=== PATIENT | female | born 1940 | race Caucasian/White ===

== ENCOUNTER → 2020-01-08 | Outpatient (CLI) | payer MEDICARE, BC ==
--- NOTE | 2020-01-08 16:09 | US ---
EXAMINATION TYPE: US transvaginal DATE OF EXAM: 01/08/2020 COMPARISON: Previous report scanned into PACS CLINICAL HISTORY: N83.209 Ovarian cyst. Follow up right ovarian cyst TECHNIQUE: Transvaginal exam only per ordering physician. Date of LMP: 30 years ago EXAM MEASUREMENTS: Uterus: 4.2 x 2.3 x 2.8 cm Endometrial Stripe: 0.3 cm Right Ovary: cm Left Ovary: not seen 1. Uterus: anteverted, heterogeneous, multiple nabothian cysts 2. Endometrium: fluid within endo 3. Right Ovary: 5.7 x 2.8 x 3.5cm complex cyst with septation 4. Left Ovary: not seen 5. Bilateral Adnexa: wnl 6. Posterior cul-de-sac: wnl IMPRESSION: 1. Complex Right ovarian cyst. Follow-up exam in 6 weeks is recommended.
== END | disposition home or self-care (01) ==
LOC: RADUSWWP 15:21
PROVIDERS: ATTEND Family Medicine
DX: N83.201 Unspecified ovarian cyst, right side (principal)
CPT/HCPCS: 76830

== ENCOUNTER → 2020-01-28 | Outpatient (CLI) | payer MEDICARE, BC ==
--- NOTE | 2020-01-28 15:30 | CT ---
EXAMINATION TYPE: CT abdomen pelvis w con DATE OF EXAM: 01/28/2020 HISTORY: Generalized abdominal pain, stomach area CT DLP: 634.6mGycm Automated Exposure Control for Dose Reduction was Utilized. CONTRAST: CT scan of the abdomen and pelvis is performed with IV Contrast, patient injected with 100 mL of Isov ue 300. COMPARISON: None. FINDINGS: LUNG BASES: Cardiomegaly. Nodular left basilar atelectasis LIVER/GB: Liver slightly low dense. Pj hepatis benign calcification image 30 PANCREAS: No significant abnormality is seen. SPLEEN: No significant abnormality is seen. ADRENALS: No significant abnormality is seen. KIDNEYS: Symmetric cortical medullary uptake and excretion without hydronephrosis seen bilaterally. BOWEL: Small sized hiatal hernia. Oral contrast reaches level of the hepatic flexure. There is no araceli picious small or large bowel dilatation. Normal-appearing appendix seen from cecum in the right upper pelvis. Ylfj-vz-ftonsgji colonic fecal prominence in the right and transverse colon extending into t he left colon. A few Scattered colonic diverticula in the sigmoid colon. UTERUS/ADNEXA: Anteverted uterus. There is 5.7 x 3.8 cm low dense lesion right ovary axial image 61. Scattered bilateral pelvic phleboliths. LYMPH NODES: No greater than 1cm abdominal or pelvic lymph nodes are appreciated. OSSEOUS STRUCTURES: Severe compression type fracture T11. Underlying Scoliosis. Moderate to severe multilevel disc space narrowing and vacuum disc phenomenon greatest L1- L2 level. Facet arthropathy lower lumbar levels. Moderate axial joint space loss in both hips. OTHER: Tiny fat-containing umbilical hernia. IMPRESSION: 1. Bsyz-xd-aczustbo diffuse proximal to mid colonic fecal stasis. No bowel obstruction. Some distal c olonic diverticulosis without convincing CT evidence for acute diverticulitis. 2. There is 5.7 x 3.8 cm right pelvic cystic lesion corresponds to the recent ultrasound December, abnormal finding in a postmenopausal female. Short-term follow-up advised.
== END | disposition home or self-care (01) ==
LOC: RADCTMAIN 12:13
PROVIDERS: ATTEND Family Medicine
DX: K57.30 Diverticulosis of large intestine without perforation or abscess without bleeding (principal); K59.89 Other specified functional intestinal disorders; R10.84 Generalized abdominal pain
CPT/HCPCS: 82565; 84520; 74177; 36415; Q9967

== ENCOUNTER → 2020-04-06 | Outpatient (CLI) | payer MEDICARE, BC ==
--- NOTE | 2020-04-06 11:36 | MM ---
Reason for exam: additional evaluation requested from prior study. Last mammogram was performed 11 months ago. History: Patient is postmenopausal. Physical Findings: Nurse did not find any significant physical abnormalities on exam. MG 3D Diag Mammo W/Cad PHAM Bilateral CC and MLO view(s) were taken. Prior study comparison: May 07, 2019, mammogram, performed at [place]. The breast tissue is heterogeneously dense. This may lower the sensitivity of mammography. Stable benign calcifications. Post operative changes right breast. These results were verbally communicated with the patient and result sheet given to the patient on 04/06/20. ASSESSMENT: Benign, BI-RAD 2 RECOMMENDATION: Routine screening mammogram of both breasts in 1 year.
--- NOTE | 2020-04-06 14:29 | BD ---
EXAMINATION TYPE: Axial Bone Density DATE OF EXAM: 04/06/2020 COMPARISON: NONE CLINICAL HISTORY: 79 YR OLD FEMALE.....ICD-10 CODE: M89.9 DISORDER OF BONE Height: 56.5 Weight: 136 FRAX RISK QUESTIONS: NOTHING TO NOTE HERE RISK FACTORS HISTORY OF: Family History of Osteoporosis: UNSURE Diet low in dairy products/other sources of calcium: YES, LOW Postmenopausal woman: YES, AT AGE 47 YRS OLD Lost more than 2 inches in height since high school: YES Frequent falls: UNSTEADY Hyperparathyroidism: NO Adrenal Insufficiency: NO MEDICATIONS: Thyroid Medications: YES, SYNTHROID FOR ABOUT 25YRS Osteoporosis Medications: YES, FOSAMAX, FOR ABOUT 5 YRS NOW Additional Medications: CHOLESTEROL MEDS, BP MEDS, HX OF RADIATION, RT BREAST CANCER, VIT D AND CALCI UM, REFLUX MEDS Additional History: HYPERTENSION, CHOLESTEROL, RT BREAST CANCER, APR 26 2014, EXAM MEASUREMENTS: Bone mineral densitometry was performed using the [employer] System. Bone mineral density as measured about the Lumbar spine is: ----- L1-L4(G/cm2): 1.012 T Score Values are as follows: ----- L1: -2.7 ----- L2: -2.0 ----- L3: -2.0 ----- L4: 0.6 ----- L1-L4: -1.4 Bone mineral density FIRST BONE DENSITY AT [facility] Bone mineral density about the R hip (g/cm2): 0.761 Bone mineral density about the L hip (g/cm2): 0.753 T Score values are as follows: -----R Neck: -2.5 -----L Neck: -2.2 -----R Total: -2.0 -----L Total: -2.0 Bone mineral density FIRST BONE DENSITY AT [facility] FRAX%s: THERE IS A 18.6% CHANCE FOR A MAJOR OSTEOPOROTIC FX AND A 6.5% FOR HIP.....PROBABILITY FOR FX IN 10 YRS TIME IMPRESSION: Osteopenia NOTE: T-SCORE=SD OF THE YOUNG ADULT MEAN.
[2020-04-06 20:55] LABS: Carcinoembryonic Antigen 3.8 ng/mL (0.0-4.9)
[2020-04-06 21:19] LABS: Cancer Antigen 19-9 35.2 U/mL (0.0-34.9)
== END | disposition home or self-care (01) ==
LOC: RADMAMWWP 10:02
PROVIDERS: ATTEND Family Medicine
DX: Z08 Encounter for follow-up examination after completed treatment for malignant neoplasm (principal); M85.80 Other specified disorders of bone density and structure, unspecified site; Z85.3 Personal history of malignant neoplasm of breast; Z78.0 Asymptomatic menopausal state; R89.9 Unspecified abnormal finding in specimens from other organs, systems and tissues
CPT/HCPCS: 82378; 86301; 77080; 77066; G0279; 77062

== ENCOUNTER → 2020-06-01 | Outpatient (CLI) | payer MEDICARE, BC ==
--- NOTE | 2020-06-01 10:34 | US ---
EXAMINATION TYPE: US abdomen complete DATE OF EXAM: 06/01/2020 COMPARISON: NONE CLINICAL HISTORY: 79-year-old female R10.84 Generalized abdominal pain. TECHNIQUE: Multiple sonographic images of the abdomen are obtained. FINDINGS: EXAM MEASUREMENTS: Liver Length: 12.2 cm Gallbladder Wall: 0.3 cm CBD: 5.7 mm Spleen: 6.7 cm Right Kidney: 10.0 x 3.6 x 3.7 cm Left Kidney: 9.2 x 3.7 x 4.0 cm Pancreas: Tail obscured by overlying bowel gas. Visualized portions show no gross abnormality. Liver: Slightly echogenic in comparison to the adjacent right kidney. No focal lesion seen. Gallbladder: no evidence of stones Evidence for sonographic Palmer's sign: no CBD: Upper limits of normal, acceptable given patient's age. Spleen: wnl Right Kidney: no evidence of hydronephrosis Left Kidney: no evidence of hydronephrosis Upper IVC: wnl Abd Aorta: wnl IMPRESSION: No gallstones or abnormal biliary ductal dilatation. There may be mild fatty infiltration of the live r.
== END | disposition home or self-care (01) ==
LOC: RADUSWWP 07:18
PROVIDERS: ATTEND Family Medicine
DX: R10.84 Generalized abdominal pain (principal)
CPT/HCPCS: 76700

== ENCOUNTER → 2020-06-08 | Outpatient (CLI) | payer MEDICARE, BC ==
--- NOTE | 2020-06-08 10:13 | NM ---
EXAMINATION TYPE: NM hepatobiliary w EF DATE OF EXAM: 06/08/2020 COMPARISON: NONE INDICATION: Generalized abdominal pain TECHNIQUE: After the intravenous administration of 5.1 mCi Tc 99m Mebrofenin hepatobiliary scintigrap hy is performed. Images were obtained immediately post injection. FINDINGS: There is prompt uptake and excretion of radiotracer by the liver. Extrahepatic ducts are identified at 6 minutes. The gallbladder is visualized within 10 minutes. Small bowel activity is noted within 26 minutes. At one hour 8 ounces Ensure was administered orally and gallbladder ejection fraction is calculated a t 94 %, which is elevated range. (Normal >35% and <80%.). IMPRESSION: 1. Correlate for biliary hyperkinesia.
== END | disposition home or self-care (01) ==
LOC: RADNMMAIN 06:51
PROVIDERS: ATTEND Family Medicine
DX: R10.84 Generalized abdominal pain (principal)
CPT/HCPCS: 78226; A9537

== ENCOUNTER → 2020-11-01 | Outpatient (CLI) | payer MEDICARE, BC ==
[2020-11-01 15:47] LABS: Basophils # (A) 0.1 k/uL (0-0.2); Basophils % (A) 2 %; Eosinophils % (A) 0 %; HCT 42.9 % (34.0-46.0); HGB 14.9 gm/dL (11.4-16.0); Lymphocytes # (A) 1.4 k/uL (1.0-4.8); Lymphocytes % (A) 31 %; MCH 33.4 pg (25.0-35.0); MCHC 34.7 g/dL (31.0-37.0); MCV 96.2 fL (80.0-100.0); Mean Platelet Volume 7.1; Monocytes # (A) 0.4 k/uL (0-1.0); Monocytes % (A) 9 %; Neutrophils # (A) 2.5 k/uL (1.3-7.7); Neutrophils % (A) 55 %; Platelet Count 209 k/uL (150-450); RBC 4.46 m/uL (3.80-5.40); RDW 11.7 % (11.5-15.5); WBC 4.6 k/uL (3.8-10.6)
[2020-11-01 15:54] LABS: Appearance,Urine Clear (Clear); Bacteria,Urine Few /hpf; Bilirubin,Urine Negative (Negative); Blood,Urine Negative (Negative); Color,Urine Yellow; Glucose,Urine (UA) Negative (Negative); Ketones,Urine Negative (Negative); Leukocyte Esterase,Urine Small (Negative); Nitrite,Urine Negative (Negative); PH, Urine 6.5 (5.0-8.0); Protein,Urine Negative (Negative); RBC,Urine 1 /hpf (0-5); Specific Gravity,Urine 1.016 (1.001-1.035); Urobilinogen,Urine <2.0 mg/dL (<2.0); WBC,Urine 2 /hpf (0-5)
[2020-11-01 17:03] LABS: Erythrocyte Sedimentation Rate 8 mm/hr (0-20)
[2020-11-02 07:00] LABS: Cancer Antigen 19-9 40.5 U/mL (0.0-34.9)
[2020-11-02 07:03] LABS: Protein, Total 6.7 g/dL (6.2-8.2)
[2020-11-02 07:24] LABS: Cancer Antigen 125 7.7 U/mL (0.0-30.1)
[2020-11-02 07:32] LABS: C Reactive Protein <0.4 mg/dL (0.0-0.8); Lipase 40 U/L (14-63)
[2020-11-03 13:38] LABS: Gamma Globulin 0.75 g/dL (0.70-1.50)
[2020-11-04 08:17] LABS: Arsenic Whole Blood <3 mcg/L (< 23); Mercury Whole Blood <2 mcg/L (< 11)
== END | disposition home or self-care (01) ==
LOC: LABWHC1 15:16
PROVIDERS: ATTEND Family Medicine
DX: D72.819 Decreased white blood cell count, unspecified (principal)
CPT/HCPCS: 36415; 81001; 82175; 82570; 83655; 83690; 83825; 84165; 85025; 85652; 86140; 86301; 86304; 86334

== ENCOUNTER → 2021-02-14 | Outpatient (CLI) | payer MEDICARE, BC ==
[2021-02-14 14:05] LABS: Basophils # (A) 0.1 k/uL (0-0.2); Basophils % (A) 1 %; Eosinophils % (A) 0 %; HGB 15.2 gm/dL (11.4-16.0); Lymphocytes # (A) 1.3 k/uL (1.0-4.8); Lymphocytes % (A) 18 %; MCH 33.7 pg (25.0-35.0); MCHC 33.7 g/dL (31.0-37.0); MCV 99.9 fL (80.0-100.0); Mean Platelet Volume 7.4; Monocytes # (A) 0.5 k/uL (0-1.0); Monocytes % (A) 6 %; Neutrophils % (A) 72 %; Platelet Count 227 k/uL (150-450); RBC 4.51 m/uL (3.80-5.40); RDW 11.9 % (11.5-15.5)
[2021-02-14 14:23] LABS: Calcium 9.6 mg/dL (8.4-10.2)
[2021-02-14 14:27] LABS: Total Protein 7.6 g/dL (6.3-8.2)
[2021-02-14 14:28] LABS: Albumin 4.4 g/dL (3.5-5.0)
[2021-02-14 14:39] LABS: T4, Free (Free Thyroxine) 1.18 ng/dL (0.78-2.19)
[2021-02-14 15:53] LABS: Basophils # (A) 0.1 k/uL (0-0.2); Basophils % (A) 1 %; Eosinophils % (A) 0 %; HCT 45.6 % (34.0-46.0); HGB 15.2 gm/dL (11.4-16.0); Lymphocytes # (A) 1.4 k/uL (1.0-4.8); Lymphocytes % (A) 21 %; MCHC 33.3 g/dL (31.0-37.0); MCV 99.1 fL (80.0-100.0); Mean Platelet Volume 7.3; Monocytes # (A) 0.5 k/uL (0-1.0); Monocytes % (A) 8 %; Neutrophils # (A) 4.7 k/uL (1.3-7.7); Neutrophils % (A) 68 %; Platelet Count 231 k/uL (150-450); RDW 11.9 % (11.5-15.5)
[2021-02-14 16:08] LABS: ALT 14 U/L (4-34); AST 23 U/L (14-36); African American GFR (CKD) 75 (>60 ml/min/1.73 sqM); Albumin 4.3 g/dL (3.5-5.0); Alkaline Phosphatase 53 U/L (38-126); Anion Gap 8 mmol/L; Blood Urea Nitrogen 18 mg/dL (7-17); Calcium 9.4 mg/dL (8.4-10.2); Carbon Dioxide 27 mmol/L (22-30); Chloride 101 mmol/L (98-107); Glucose 84 mg/dL (74-99); Non-African American GFR(CKD) 65 (>60 ml/min/1.73 sqM); Potassium 3.8 mmol/L (3.5-5.1); Sodium 136 mmol/L (137-145); Total Bilirubin 0.5 mg/dL (0.2-1.3); Total Protein 7.1 g/dL (6.3-8.2)
--- NOTE | 2021-02-14 16:28 | CT ---
Right ovary or if this were EXAMINATION TYPE: CT abdomen pelvis w con DATE OF EXAM: 02/14/2021 COMPARISON: 01/28/2020 and 02/14/2021 ultrasound HISTORY: 80 year-old female K83.9, Disease of biliary tract. TECHNIQUE: Contiguous axial scanning of the abdomen and pelvis following administration of 100 ml Iso joan 300 IV contrast. Delayed images through the kidneys and coronal/sagittal reconstructions perform ed. CT DLP: 1160 mGycm Automated exposure control for dose reduction was used. FINDINGS: Heart borderline enlarged without pericardial effusion. Some mild patchy density inferior lingula, pr obably atelectasis. Additional dependent atelectasis is noted. Small to moderate-sized hiatal hernia. No focal liver lesion. Bile duct mildly dilated at 7.5 mm, acceptable given patient's age. Portal genny ous system is patent. Gallbladder, right adrenal gland, and spleen within normal limits. Mild diffuse dilatation of the main pancreatic duct up to 4 mm is unchanged. Bilateral extrarenal pelvis, right larger than left. Symmetric uptake and excretion of contrast from both kidneys. Separate origin of the splenic artery directly from the aorta is normal variation. No dilated small bowel, free fluid, or free air. No mesenteric or retroperitoneal lymphadenopathy. Scattered mild atherosclerotic calcifications abdominal aorta without aneurysm. Oral contrast progressed to the distal small bowel. There is moderate stool burden. Sigmoid diverticu losis. No pericolonic inflammatory change seen. Bladder urine distended. Uterus anteverted. Both ovaries are visualized. Within the right adnexa, the re is an ovoid cyst measuring 6.4 x 3.7 cm versus 6.5 x 3.8 cm, previously. Multiple pelvic phlebolit hs. No pelvic lymphadenopathy seen. Bones: Mild degenerative change at the hips. Osteitis pubis. Mild degenerative change SI joints. Adva nced hypertrophic facet arthropathy mid to lower lumbar spine with grade 1 anterolisthesis L3-L4 and L5-S1. Baastrup's disease and accentuated lumbar lordosis. Severe endplate fracture with severe compr ession collapse of T11. There is retropulsion into the spinal canal contributing to at least a modera te spinal canal stenosis. Finding was present back on 01/28/2020. IMPRESSION: 1. BILE DUCT MILDLY DILATED AT 7.5 MM, ACCEPTABLE GIVEN PATIENT'S AGE. THERE IS UNCHANGED MILD DIFFUS E DILATATION OF THE MAIN PANCREATIC DUCT UP TO 4 MM. 2. SMALL TO MODERATE-SIZED HIATAL HERNIA. 3. MODERATE STOOL BURDEN. SIGMOID DIVERTICULOSIS. NO CONVINCING EVIDENCE FOR ACUTE DIVERTICULITIS. 4. REDEMONSTRATED OVAL 6.4 X 3.7 CM CYST IN THE RIGHT ADNEXA, LIKELY OF OVARIAN ORIGIN. OVERALL SIZE UNCHANGED FROM THE CT OF 01/28/2020. CONSIDER FURTHER PELVIC MRI EVALUATION GIVEN SOME SUBTLE WALL IRR EGULARITY DESCRIBED ON THE 02/14/2021 ULTRASOUND. IF ONLY THIN INTERNAL SEPTATIONS ARE DEMONSTRATED O N THE PELVIC MRI, UNDERGOING ANNUAL ULTRASOUND SURVEILLANCE CAN BE PERFORMED.
[2021-02-15 09:58] LABS: Chol/HDL Ratio 3.24 Ratio; HDL Cholesterol 65.1 mg/dL (40.00-60.00); LDL Cholesterol,Calculated 121.9 mg/dL (0.0-131.0)
[2021-02-15 13:03] LABS: Cancer Antigen 125 15.6 U/mL (0.0-30.1)
== END | disposition home or self-care (01) ==
LOC: RADCTMAIN 12:53
PROVIDERS: ATTEND Family Medicine
DX: K83.8 Other specified diseases of biliary tract (principal); K57.30 Diverticulosis of large intestine without perforation or abscess without bleeding; K44.9 Diaphragmatic hernia without obstruction or gangrene; K86.89 Other specified diseases of pancreas; N83.8 Other noninflammatory disorders of ovary, fallopian tube and broad ligament
CPT/HCPCS: 84439; 80061; 80053; 86304; 82607; 84443; 85025; 86301; 83036; 74177; 36415; Q9967

== ENCOUNTER → 2021-02-14 | Outpatient (CLI) | payer MEDICARE, BC ==
--- NOTE | 2021-02-14 14:39 | US ---
EXAMINATION TYPE: US transvaginal DATE OF EXAM: 02/14/2021 COMPARISON: US pelvis January 08, 2020. CT abdomen and pelvis January 28, 2020 CLINICAL HISTORY: N83.291 ovarian cyst, right side. History of right ovarian cyst, 3, para 3 TECHNIQUE: Transvaginal only per ordering physician Date of LMP: 30+ years ago EXAM MEASUREMENTS: Uterus: 5.0 x 1.9 x 2.0 cm Endometrial Stripe: 0.4 cm Right Ovary: 6.2 x 3.2 x 3.3 cm 1. Uterus: anteverted, heterogeneous, multiple nabothian cysts 2. Endometrium: fluid within endo 3. Right Ovary: 5.4 x 2.5 x 3.0cm complex cyst with septations 4. Left Ovary: not seen due to overlying bowel gas 5. Bilateral Adnexa: wnl 6. Posterior cul-de-sac: wnl A small thin-walled nabothian cyst in the cervix on initial images. Poorly visualized small size uter us correlating with postmenopausal age. No free fluid. Persistent nonsimple cyst right ovary with thi n septa measuring 5.4 x 2.5 x 3.0 cm on current study not significantly changed in size from prior st y when accounting for technical differences. Inner margin somewhat irregular on current study versu s prior ultrasound. Left ovary not seen. No left-sided adnexal mass. IMPRESSION: Stable 5.4 cm right ovarian cystic lesion. ORADS 4 Lesion. Intermediate risk. Consider referral to a specialist has not been performed for possi ble MRI evaluation.
== END | disposition home or self-care (01) ==
LOC: RADUSWWP 13:44
PROVIDERS: ATTEND Obstetrics & Gynecology
DX: N83.201 Unspecified ovarian cyst, right side (principal)
CPT/HCPCS: 76830

== ENCOUNTER → 2021-04-11 | Outpatient (CLI) | payer MEDICARE, BC | END | disposition home or self-care (01) | LOC: LABWHC1 10:15 | PROVIDERS: ATTEND Obstetrics & Gynecology | DX: N83.209 Unspecified ovarian cyst, unspecified side (principal) | CPT/HCPCS: 36415; 86301; 86304 ==

== ENCOUNTER → 2021-05-03 | Outpatient (CLI) | payer MEDICARE, BC ==
--- NOTE | 2021-05-08 11:09 | MM ---
Reason for exam: screening (asymptomatic). Last mammogram was performed 1 year and 1 month ago. History: Patient is postmenopausal. Physical Findings: A clinical breast exam by your physician is recommended on an annual basis and results should be correlated with mammographic findings. MG 3D Screening Mammo W/Cad Bilateral CC and MLO view(s) were taken. Prior study comparison: April 06, 2020, bilateral MG 3d diag mammo w/cad PHAM. May 07, 2019, mammogram, performed at [place]. There are scattered fibroglandular densities. Previous mammotome biopsy in the right breast x 2. Benign oil cyst and vascular calcifications. No significant changes when compared with prior studies. ASSESSMENT: Benign, BI-RAD 2 RECOMMENDATION: Routine screening mammogram of both breasts in 1 year.
== END | disposition home or self-care (01) ==
LOC: RADMAMWWP 13:46
PROVIDERS: ATTEND Family Medicine
DX: Z12.31 Encounter for screening mammogram for malignant neoplasm of breast (principal); Z78.0 Asymptomatic menopausal state
CPT/HCPCS: 77063; 77067

== ENCOUNTER → 2021-05-06 | Outpatient (CLI) | payer MEDICARE, BC ==
--- NOTE | 2021-05-07 02:12 | MR ---
EXAMINATION TYPE: MR pelvis wo/w con DATE OF EXAM: 05/06/2021 COMPARISON: None HISTORY: Pelvic pain, evaluate ovarian cyst. CONTRAST: Standard multiplanar, multisequence MRI departmental protocol images were obtained without contrast a nd with 7 mL intravenous Gadavist gadolinium contrast. There is a 6 x 4 cm septated thin-walled cyst in the left adnexal region. This is probably arising fr om the right ovary. The uterus is anteverted with normal size and contour. There is no endometrial mass. Urinary bladder distends smoothly. There is no sign of free fluid in the pelvis. The contrast images show no patholog ic enhancement. The hip joints appear intact. The lower lumbar spine is intact. There is some degenerative disc space narrowing in the lower lumbar spine. IMPRESSION: Septated thin-walled cyst in the pelvis on the right side is measuring 5 mm larger than scan of 2019 and consistent with benign ovarian cyst. Normal uterus.
== END | disposition home or self-care (01) ==
LOC: RADMRIMAIN 09:15
PROVIDERS: ATTEND Obstetrics & Gynecology
DX: N83.201 Unspecified ovarian cyst, right side (principal)
CPT/HCPCS: 72197; A9585

== ENCOUNTER → 2021-09-29 | Outpatient (CLI) | payer MEDICARE, BC ==
--- NOTE | 2021-09-30 07:18 | MR ---
EXAMINATION TYPE: MR abdomen wo/w con DATE OF EXAM: 09/29/2021 COMPARISON: None HISTORY: Abnormal tumor markers, history of breast ca CONTRAST: Standard multiplanar, multisequence MRI departmental protocol images were obtained without contrast a nd with 6 mL intravenous Gadavist gadolinium contrast. The lung bases are clear of consolidation. There is evidence for minute bilateral pleural effusions. Heart appears slightly enlarged. No pericardial effusion. Gallbladder appears normal. The bile ducts are not dilated. There is no evidence of pancreatic mass. The duct appears normal. There is no evidence of splenic mass. No evidence of pancreatic mass. There is no adrenal mass. Kidneys have normal size and contour. No hydronephrosis. The contrast image s show no pathologic enhancement. There is no ascites. There is normal enhancement of the portal veno us system. No evidence of retroperitoneal adenopathy. No evidence of focal bone destruction. No evide nce of a bowel obstruction. IMPRESSION: Cardiomegaly. Small pleural effusions. No evidence of metastatic disease in the abdomen.
== END | disposition home or self-care (01) ==
LOC: RADMRIMAIN 12:08
PROVIDERS: ATTEND Family Medicine
DX: J90 Pleural effusion, not elsewhere classified (principal); I51.7 Cardiomegaly; Z85.3 Personal history of malignant neoplasm of breast
CPT/HCPCS: 74183; A9585

== ENCOUNTER 2021-10-17 10:55 | Observation (INO) | payer MEDICARE, BC ==
[2021-10-17] MEDS ORDERED: ASPIRIN 81 MG PO STA (12:17)
--- NOTE | 2021-10-17 12:20 | ED ---
General Adult HPI - General Chief complaint: Chest Pain Stated complaint: Chest pressure Time Seen by Provider: 10/17/21 11:52 Source: patient, family, RN notes reviewed Mode of arrival: ambulatory Limitations: no limitations - History of Present Illness Initial comments: Patient is a pleasant 80-year-old female presenting to the emergency department with concerns with chest discomfort. Onset was around 7 this morning. Symptoms lasted a little bit past 8:00. Patient did have pressure in her chest. There is some tightness in her arm and some radiation up to the neck. There was a one point some radiation towards the back as well. No dyspnea. Patient was a little bit nausea. No diaphoresis. No history of similar symptoms previously. Patient does see Dr. rashid on and does have history of right bundle-branch block. - Related Data Home Medications Medication Instructions Recorded Confirmed Furosemide [Lasix] 20 mg PO BID 10/17/21 10/17/21 Levothyroxine Sodium [Euthyrox] 112 mcg PO DAILY 10/17/21 10/17/21 Potassium Chloride [Potassium 10 meq PO DAILY 10/17/21 10/17/21 Chloride ER] amLODIPine [Norvasc] 10 mg PO DAILY 10/17/21 10/17/21 Allergies Allergy/AdvReac Type Severity Reaction Status Date / Time No Known Allergies Allergy Verified 10/17/21 12:11 Review of Systems ROS Statement: Those systems with pertinent positive or pertinent negative responses have been documented in the HPI. ROS Other: All systems not noted in ROS Statement are negative. Constitutional: Denies: fever Eyes: Denies: eye pain ENT: Denies: ear pain Respiratory: Denies: cough Cardiovascular: Reports: as per HPI, chest pain Endocrine: Denies: fatigue Gastrointestinal: Reports: nausea. Denies: abdominal pain, vomiting Genitourinary: Denies: dysuria Musculoskeletal: Reports: as per HPI Skin: Denies: rash Neurological: Denies: headache Past Medical History Past Medical History: Cancer, Chest Pain / Angina, Heart Failure, Hypertension, Thyroid Disorder Past Surgical History: Breast Surgery Past Psychological History: No Psychological Hx Reported Smoking Status: Never smoker Past Alcohol Use History: None Reported Past Drug Use History: None Reported General Exam Limitations: no limitations General appearance: alert, in no apparent distress Head exam: Present: normocephalic Eye exam: Present: normal appearance Respiratory exam: Present: normal lung sounds bilaterally Cardiovascular Exam: Present: regular rate, normal rhythm Expanded Peripheral pulses: 2+: Radial (R), Radial (L), Posterior Tibialis (R), Posterior Tibialis (L) GI/Abdominal exam: Present: soft. Absent: tenderness Extremities exam: Present: normal inspection. Absent: pedal edema, calf tenderness Neurological exam: Present: alert Psychiatric exam: Present: normal affect, normal mood Skin exam: Present: normal color Course Vital Signs 10/17/21 10/17/21 10/17/21 11:00 12:08 13:00 Temperature 97.7 F 98.8 F Pulse Rate 94 75 65 Respiratory 20 18 18 Rate Blood Pressure 146/66 158/66 131/54 O2 Sat by Pulse 97 97 Oximetry 10/17/21 14:00 Temperature Pulse Rate 67 Respiratory 18 Rate Blood Pressure 151/64 O2 Sat by Pulse Oximetry EKG Findings - EKG Comments: EKG Findings:: Sinus rhythm at 88. IA 150. QRS 133. QT 33. QTC 420. Normal axis. Right bundle branch block. No acute ST change. Medical Decision Making - Medical Decision Making Patient evaluated and resting comfortably in bed. Patient family updated on results and plan. Case discussed with Dr. Pang, who will admit covered Dr. James. - Lab Data Result diagrams: 10/17/21 12:21 10/17/21 12:21 Lab Results 10/17/21 10/17/21 10/17/21 Range/Units 12:21 12:21 12:21 WBC 5.2 (3.8-10.6) k/uL RBC 4.58 (3.80-5.40) m/uL Hgb 15.0 (11.4-16.0) gm/dL Hct 45.5 (34.0-46.0) % MCV 99.3 (80.0-100.0) fL MCH 32.7 (25.0-35.0) pg MCHC 32.9 (31.0-37.0) g/dL RDW 11.9 (11.5-15.5) % Plt Count 226 (150-450) k/uL MPV 7.4 Neutrophils % 71 % Lymphocytes % 19 % Monocytes % 8 % Eosinophils % 0 % Basophils % 1 % Neutrophils # 3.7 (1.3-7.7) k/uL Lymphocytes # 1.0 (1.0-4.8) k/uL Monocytes # 0.4 (0-1.0) k/uL Eosinophils # 0.0 (0-0.7) k/uL Basophils # 0.0 (0-0.2) k/uL PT 10.2 (9.0-12.0) sec INR 0.9 (<1.2) APTT 25.0 (22.0-30.0) sec D-Dimer 1.27 H (<0.60) mg/L FEU Sodium 141 (137-145) mmol/L Potassium 3.5 (3.5-5.1) mmol/L Chloride 102 (98-107) mmol/L Carbon Dioxide 30 (22-30) mmol/L Anion Gap 9 mmol/L BUN 11 (7-17) mg/dL Creatinine 0.80 (0.52-1.04) mg/dL Est GFR (CKD-EPI)AfAm 80 (>60 ml/min/1.73 sqM) Est GFR (CKD-EPI)NonAf 69 (>60 ml/min/1.73 sqM) Glucose 153 H (74-99) mg/dL Calcium 9.0 (8.4-10.2) mg/dL Magnesium 2.3 (1.6-2.3) mg/dL Total Bilirubin 0.8 (0.2-1.3) mg/dL AST 24 (14-36) U/L ALT 15 (4-34) U/L Alkaline Phosphatase 47 (38-126) U/L Troponin I (0.000-0.034) ng/mL Total Protein 7.2 (6.3-8.2) g/dL Albumin 4.5 (3.5-5.0) g/dL Amylase 102 (30-110) U/L Lipase 71 (23-300) U/L 10/17/21 Range/Units 12:21 WBC (3.8-10.6) k/uL RBC (3.80-5.40) m/uL Hgb (11.4-16.0) gm/dL Hct (34.0-46.0) % MCV (80.0-100.0) fL MCH (25.0-35.0) pg MCHC (31.0-37.0) g/dL RDW (11.5-15.5) % Plt Count (150-450) k/uL MPV Neutrophils % % Lymphocytes % % Monocytes % % Eosinophils % % Basophils % % Neutrophils # (1.3-7.7) k/uL Lymphocytes # (1.0-4.8) k/uL Monocytes # (0-1.0) k/uL Eosinophils # (0-0.7) k/uL Basophils # (0-0.2) k/uL PT (9.0-12.0) sec INR (<1.2) APTT (22.0-30.0) sec D-Dimer (<0.60) mg/L FEU Sodium (137-145) mmol/L Potassium (3.5-5.1) mmol/L Chloride (98-107) mmol/L Carbon Dioxide (22-30) mmol/L Anion Gap mmol/L BUN (7-17) mg/dL Creatinine (0.52-1.04) mg/dL Est GFR (CKD-EPI)AfAm (>60 ml/min/1.73 sqM) Est GFR (CKD-EPI)NonAf (>60 ml/min/1.73 sqM) Glucose (74-99) mg/dL Calcium (8.4-10.2) mg/dL Magnesium (1.6-2.3) mg/dL Total Bilirubin (0.2-1.3) mg/dL AST (14-36) U/L ALT (4-34) U/L Alkaline Phosphatase (38-126) U/L Troponin I <0.012 (0.000-0.034) ng/mL Total Protein (6.3-8.2) g/dL Albumin (3.5-5.0) g/dL Amylase (30-110) U/L Lipase (23-300) U/L - Radiology Data Radiology results: report reviewed (Computed tomography scan of the chest shows no definitive pulmonary embolism or aneurysm. Suspicious infiltrate right upper lobe.), image reviewed (Chest x-ray shows atelectasis. No acute process.) Disposition Clinical Impression: Chest pain, Pneumonia Disposition: ADMITTED IP TO THIS HOSP Is patient prescribed a controlled substance at d/c from ED?: No Referrals: Melina James MD [Primary Care Provider] - 1-2 days Time of Disposition: 15:26
[2021-10-17 12:37] LABS: Basophils % (A) 1 %; Eosinophils % (A) 0 %; HCT 45.5 % (34.0-46.0); Lymphocytes % (A) 19 %; MCH 32.7 pg (25.0-35.0); MCHC 32.9 g/dL (31.0-37.0); MCV 99.3 fL (80.0-100.0); Mean Platelet Volume 7.4; Monocytes # (A) 0.4 k/uL (0-1.0); Monocytes % (A) 8 %; Neutrophils # (A) 3.7 k/uL (1.3-7.7); Neutrophils % (A) 71 %; Platelet Count 226 k/uL (150-450); RBC 4.58 m/uL (3.80-5.40); RDW 11.9 % (11.5-15.5); WBC 5.2 k/uL (3.8-10.6)
--- NOTE | 2021-10-17 12:39 | XR ---
EXAMINATION TYPE: XR chest 2V DATE OF EXAM: 10/17/2021 COMPARISON: NONE HISTORY: Chest pain TECHNIQUE: Frontal and lateral views of the chest are obtained. FINDINGS: Bilateral apical pulmonary changes with right upper zone linear atelectasis/fibrosis. Suspected COPD changes. Grossly unremarkable remainder of the lungs. No pleural effusion or pneumothorax. Slightly increased cardiac transverse diameter. Osteopenia. IMPRESSION: As above.
[2021-10-17 12:52] LABS: INR 0.9 (<1.2); Prothrombin Time 10.2 sec (9.0-12.0)
[2021-10-17 13:02] LABS: Albumin 4.5 g/dL (3.5-5.0); Magnesium 2.3 mg/dL (1.6-2.3); Potassium 3.5 mmol/L (3.5-5.1); Total Bilirubin 0.8 mg/dL (0.2-1.3); Total Protein 7.2 g/dL (6.3-8.2)
--- NOTE | 2021-10-17 14:13 | CT ---
EXAMINATION TYPE: CT angio chest DATE OF EXAM: 10/17/2021 COMPARISON: No previous scan is available for comparison HISTORY: Chest pressure, back pain CT DLP: 209.8 mGy.cm. Automated Exposure Control for Dose Reduction was Utilized. TECHNIQUE AND CONTRAST: CTA scan of the thorax is performed with IV Contrast, patient injected with 66 mL of Isovue 300. MIP Images are created on an independent workstation and reviewed. FINDINGS: No definite filling defect within the pulmonary trunk, main pulmonary arteries, lobar, segmental or p roximal subsegmental branches to suggest pulmonary embolism. Distal subsegmental branches are subopti rodri assessed. The pulmonary trunk measures 2.9 cm and the ascending aorta measures up to 3.3 cm. Sc attered arterial and coronary atherosclerotic calcifications. No evidence of thoracic aortic dissecti on, stenosis, occlusion or aneurysm. Slight cardiomegaly, please correlate with echocardiographic res ults. Focal infiltration is seen at the posterolateral aspect of the right upper lobe, likely inflammatory/ infectious in etiology. Bilateral apical pulmonary fibrotic changes and tiny calcifications. Grossly unremarkable remainder of the lungs. Patent trachea and main bronchi. No pleural or pericardial effus ion. 14 mm subcarinal lymph node. Other scattered smaller bilateral hilar and mediastinal lymph nodes , nonspecific. Suspected enlarged right thyroid lobe, please correlate with thyroid ultrasound results. Slightly pro minent pancreatic duct, not completely included in the scan. Osteopenia. Degenerative changes of thor acic spine. Complete collapse of T12 vertebral body with retropulsion of the posterior margin into th e spinal canal causing spinal canal stenosis, stable since January 2021 CT abdomen. IMPRESSION: No major or central pulmonary embolism. No evidence of thoracic aortic dissection, stenosis, occlusio n or aneurysm. Other findings as described above.
[2021-10-17] MEDS ORDERED: NITROGLYCERIN SL TABS 0.4 MG TAB SUBLINGUAL PRN (15:26)
[2021-10-17] MEDS ORDERED: AZITHROMYCIN 500 MG in SODIUM CHLORIDE 0.9% 250 ML IVPB STA (15:27)
[2021-10-17] MEDS ORDERED: PNEUMONIA PROTOCOL UTILIZED 1 EACH MISC PO PRN (15:27)
--- NOTE | 2021-10-18 | P.HPIM ---
History of Present Illness H&P Date: 10/17/21 HISTORY OF PRESENT ILLNESS 80-year-old female one of Dr. James's patient who apparently had moved from [place] a few months ago used to see loin puller in [place] regular basis for right bundle branch block along with heart murmur had stress test and echo last time in 2019. Patient [address] Salazar in [facility] [address] for the continued if care on cardiology has been doing well no testing done in [facility] [address] this time patient been watch clinically has been stable on current medication. Patient woke up at 7:00 in the morning with midsternal chest pain lasted an hour get up and move around her symptoms become slightly bit worse developed to have shoulder blade pain radiates from the front to the back associated with mild shortness of breath nausea without vomiting developed to have mild palpitation and worsening symptom with nausea become slightly bit lightheaded as well. With the symptom has been slightly bit worse ended up coming to the emergency department at [facility] where was seen and evaluated her CK and troponin was negative blood sugar was mildly elevated d-dimer came back elevated patient ended up going for CTA which was negative for pulmonary embolism but result were consistent with pneumonia in the right upper lobe even though patient is not symptomatic had mild bilateral apical pulmonary fibrosis and tiny calcification no pleural or pericardial effusion was found 14 mm subcarinal lymph node other scattered smaller bilateral hilar and mediastinal lymph node nonspecific also had suspected enlarged right thyroid lobe recommending ultrasound of the thyroid at some point. Thoracic spine and bone mildly consistent with osteopenia. Patient will be hospitalized for her anginal chest pain will be seen cardiology, echocardiogram will be done with the patient benefit from going for nuclear stress test or not to be determined by cardiology. REVIEW OF SYSTEMS Constitutional: No fever, no chills, no night sweats. No weight change. No weakness, fatigue or lethargy. No daytime sleepiness. EENT: No headache. No blurred vision or double vision, no loss of vision. No loss of Hearing, no ringing in the ears, no dizziness. No nasal drainage or congestion. No epistaxis. No sore throat. Lungs: chest pain with mild shortness of breath cough no wheezes or tightness. Cardiovascular: positive chest pain, no lower extremity edema. positive palpitations. mild paroxysmal nocturnal dyspnea. and orthopnea. very mild lightheadedness or dizziness. No syncopal episodes. Abdominal: No abdominal pain. No nausea, vomiting. No diarrhea. No constipation. No bloody or tarry stools.. No loss of appetite. Genitourinary: No dysuria, increased frequency, urgency. No urinary retention. Musculoskeletal: No myalgias. No muscle weakness, no gait dysfunction, no frequent falls. No back pain. No neck pain. Integumentary: No wounds, no lesions. No rash or pruritus. No unusual bruising. No change in hair or nails. Neurologic: No aphasia. No facial droop. No change in mentation. No head injury. No headache. No paralysis. No paresthesia. Psychiatric: No depression. No anxiety. No mood swings. Endocrine: No abnormal blood sugars. No weight change. No excessive sweating or thirst. No cold intolerance. SOCIAL HISTORY she never smoked, no alcohol abuse, she has been for many years has been living alone able to manage her own affairs without help. FAMILY HISTORY she has 3 children both are living and well, 1 brother who is retired living with without any major health problem. Both parents have passed in their 80s from congestive heart failure. PHYSICAL EXAMINATION Gen: This is elderly laying in bed does not look in any respiratory distress. HEENT: Head is atraumatic, normocephalic. Pupils equal, round. Sclerae is anicteric. NECK: Supple. No JVD. No lymphadenopathy. No thyromegaly. LUNGS: Clear to auscultation. No wheezes or rhonchi. No intercostal retractions.no costochondral pain no sign of inflammation and no rash or shingle on the chest wall area. HEART: Regular rate and rhythm. 1/6 systolic murmur in the apex ABDOMEN: Soft. Bowel sounds are present. No masses. No tenderness. EXTREMITIES: No pedal edema. No calf tenderness. NEUROLOGICAL: Patient is awake, alert and oriented x3. Cranial nerves 2 through 12 are grossly intact. ASSESSMENT AND PLAN - chest pain: Atypical, patient has been seeing cardiology regularly no stress test last 3 years, and admit patient to the hospital, CK with troponin times daily done, consult cardiology, echocardiogram will be order and if patient requires stress test to be done tomorrow. - Atypical finding of right upper lobe pneumonia: Clinically patient is not showing any sign and symptom of infection chest x-ray that shows sweats more consistent with mild pulmonary fibrosis and infection will order pro-calcitonin if negative no treatment for pneumonia will be require a total discharge otherwise will continue azithromycin for now. - Mild arrhythmia, with palpitation and right bundle branch block: Has been stable. - possible pulmonary fibrosis: Not a clear etiology reconsult pulmonary patient might benefit from bronchodilator. With see if her echocardiogram shows any increase in right-sided heart pressure. - Hypertension: Remain on amlodipine 10 mg daily. - Hypothyroidism: Remain on levothyroxine 112 g daily. - Possibly enlarged thyroid thyroid lobe with nodular, thyroid ultrasound to be order to watch symptoms closely. - Nodular and lymph node enlargement in the mediastinotomy and subcarinal area, patient has more pulmonary fibrosis than any sign and symptom of CA we will consult pulmonary and see if patient benefit from trial of antibiotic repeat CAT scan or might require bronchoscopy. 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 - GI prophylaxis: Patient will be on Pepcid 20 mg daily. - DVT prophylaxis: Patient will be on heparin subcutaneous. - CODE STATUS: Full code. Patient will be admitted to the hospital for a minimum of 1 night stay. Past Medical History Past Medical History: Cancer, Chest Pain / Angina, Heart Failure, Hypertension, Thyroid Disorder Past Surgical History: Breast Surgery Past Psychological History: No Psychological Hx Reported Smoking Status: Never smoker Past Alcohol Use History: None Reported Past Drug Use History: None Reported - Past Family History Father Family Medical History: Congestive Heart Failure (CHF) Additional Family Medical History / Comment(s): of CHF at age 90 Mother Family Medical History: Congestive Heart Failure (CHF), Thyroid Disorder Additional Family Medical History / Comment(s): of chf at age 92 Medications and Allergies Home Medications Medication Instructions Recorded Confirmed Type Furosemide [Lasix] 20 mg PO BID 10/17/21 10/17/21 History Levothyroxine Sodium [Euthyrox] 112 mcg PO DAILY 10/17/21 10/17/21 History Potassium Chloride [Potassium 10 meq PO DAILY 10/17/21 10/17/21 History Chloride ER] amLODIPine [Norvasc] 10 mg PO DAILY 10/17/21 10/17/21 History Allergies Allergy/AdvReac Type Severity Reaction Status Date / Time No Known Allergies Allergy Verified 10/17/21 12:11 Physical Exam Vitals: Vital Signs Temp Pulse Resp BP Pulse Ox 10/17/21 14:00 67 18 151/64 10/17/21 13:00 65 18 131/54 10/17/21 12:08 98.8 F 75 18 158/66 97 10/17/21 11:00 97.7 F 94 20 146/66 97 Intake and Output 10/17/21 10/17/21 10/17/21 06:59 14:59 22:59 Other: Weight 68.039 kg Results CBC & Chem 7: 10/17/21 12:21 10/17/21 12:21 Labs: Abnormal Lab Results - Last 24 Hours (Table) 10/17/21 10/17/21 Range/Units 12:21 12:21 D-Dimer 1.27 H (<0.60) mg/L FEU Glucose 153 H (74-99) mg/dL
[2021-10-18] MEDS: LEVOTHYROXINE 112 MCG TAB PO SCH (05:46)
--- NOTE | 2021-10-18 08:32 | XR ---
EXAMINATION TYPE: XR chest 2V DATE OF EXAM: 10/18/2021 COMPARISON: X-ray dated 10/17/2021 HISTORY: Pneumonia TECHNIQUE: Frontal and lateral views of the chest are obtained. FINDINGS: Stable bilateral apical pulmonary fibrotic changes and COPD changes. No progressive pulmonary consoli dation. No sizable pleural effusion or pneumothorax. Unchanged cardiomediastinal silhouette and aortic athero sclerotic changes. Complete collapse of T12 vertebral body, associated previously. IMPRESSION: Stable condition.
[2021-10-18] MEDS: amLODIPine 10 MG TAB PO SCH (08:45)
[2021-10-18] MEDS: POTASSIUM CHLORIDE ER 10 MEQ TAB.ER.PRT PO SCH (08:45)
[2021-10-18] MEDS: FAMOTIDINE 20 MG TAB PO SCH (08:45)
[2021-10-18] MEDS ORDERED: HEPARIN SODIUM,PORCINE/PF 5,000 UNIT/0.5 ML SYRINGE SQ SCH (09:00)
[2021-10-18] MEDS ORDERED: AZITHROMYCIN 500 MG TAB PO SCH (09:00)
[2021-10-18] MEDS ORDERED: ASPIRIN 325 MG TAB PO SCH (09:00)
[2021-10-18 09:10] LABS: HCT 40.4 % (37.2-46.3); HGB 13.4 g/dL (12.0-15.0); MCH 31.8 pg (27.0-32.0); MCHC 33.2 g/dL (32.0-37.0); Mean Platelet Volume 9.9 fL (9.5-12.2); NRBC Per 100 WBC 0 /100 WBCS (0.0-0.0); Platelet Count 220 X 10*3/uL (140-440); RBC 4.21 X 10*6/uL (4.10-5.20); RDW 12.2 % (11.5-14.5)
[2021-10-18 09:19] LABS: ALT 10 U/L (8-44); AST 17 U/L (13-35); African American GFR (CKD) 96.7 (60.0-200.0); Albumin 3.9 g/dL (3.8-4.9); Albumin/Globulin Ratio 1.96 (1.60-3.17); Alkaline Phosphatase 44 U/L (41-126); BUN/Creat Ratio 14.15 Ratio (12.00-20.00); Calcium 8.6 mg/dL (8.7-10.3); Carbon Dioxide 23.6 mmol/L (20.0-27.5); Chloride 106 mmol/L (96-109); Chol/HDL Ratio 3.25 Ratio; Glucose 92 mg/dL (70-110); LDL Cholesterol,Calculated 100.4 mg/dL (0.0-131.0); Non-African American GFR(CKD) 83.4 (60.0-200.0); Potassium 3.5 mmol/L (3.5-5.5); Sodium 142 mmol/L (135-145); Total Protein 5.9 g/dL (6.2-8.2)
--- NOTE | 2021-10-18 09:57 | P.PN ---
Subjective Progress Note Date: 10/18/21 HISTORY OF PRESENT ILLNESS 80-year-old female one of Dr. James's patient who apparently had moved from [place] a few months ago used to see digital media strategist in [place] regular basis for right bundle branch block along with heart murmur had stress test and echo last time in 2019. Patient started seen Dr. Salazar in [facility] for the continued if care on cardiology has been doing well no testing done in [facility] this time patient been watch clinically has been stable on current medication. Patient woke up at 7:00 in the morning with midsternal chest pain lasted an hour get up and move around her symptoms become slightly bit worse developed to have shoulder blade pain radiates from the front to the back associated with mild shortness of breath nausea without vomiting developed to have mild palpitation and worsening symptom with nausea become slightly bit lightheaded as well. With the symptom has been slightly bit worse ended up coming to the emergency department at [facility] where was seen and evaluated her CK and troponin was negative blood sugar was mildly elevated d-dimer came back elevated patient ended up going for CTA which was negative for pulmonary embolism but result were consistent with pneumonia in the right upper lobe even though patient is not symptomatic had mild bilateral apical pulmonary fibrosis and tiny calcification no pleural or pericardial effusion was found 14 mm subcarinal lymph node other scattered smaller bilateral hilar and mediastinal lymph node nonspecific also had suspected enlarged right thyroid lobe recommending ultrasound of the thyroid at some point. Thoracic spine and bone mildly consistent with osteopenia. Patient will be hospitalized for her anginal chest pain will be seen cardiology, echocardiogram will be done with the patient benefit from going for nuclear stress test or not to be determined by cardiology. 10/18: Patient is continued on azithromycin and ceftriaxone. Patient has been afebrile, heart rate 69, blood pressure 121/57, pulse ox 94% on room air. Repeat blood work reveals normal CBC. Electrolytes renal function all normal. Troponin negative on 3 draws. Liver function tests normal. Triglycerides 83, cholesterol 169, LDL 100, HDL 52. We will add an ultrasound of the thyroid to evaluate nodule. Patient has been seen by cardiology with plan for cardiac catheterization but will discuss with patient's daughter per patient's request. Consult is in place with pulmonary medicine. Echocardiogram pending. Repeat chest x-ray reveals stable condition. REVIEW OF SYSTEMS Constitutional: No fever, no chills, no night sweats. No weight change. No weakness, fatigue or lethargy. No daytime sleepiness. EENT: No headache. No blurred vision or double vision, no loss of vision. No loss of Hearing, no ringing in the ears, no dizziness. No nasal drainage or congestion. No epistaxis. No sore throat. Lungs: chest pain with mild shortness of breath cough no wheezes or tightness. Cardiovascular: Denies chest pain, no lower extremity edema. positive palpitations. mild paroxysmal nocturnal dyspnea. and orthopnea. very mild lightheadedness or dizziness. No syncopal episodes. Abdominal: No abdominal pain. No nausea, vomiting. No diarrhea. No constipation. No bloody or tarry stools.. No loss of appetite. Genitourinary: No dysuria, increased frequency, urgency. No urinary retention. Musculoskeletal: No myalgias. No muscle weakness, no gait dysfunction, no frequent falls. No back pain. No neck pain. Integumentary: No wounds, no lesions. No rash or pruritus. No unusual bruising. No change in hair or nails. Neurologic: No aphasia. No facial droop. No change in mentation. No head injury. No headache. No paralysis. No paresthesia. Psychiatric: No depression. No anxiety. No mood swings. Endocrine: No abnormal blood sugars. No weight change. No excessive sweating or thirst. No cold intolerance. PHYSICAL EXAMINATION Gen: This is elderly laying in bed does not look in any respiratory distress. HEENT: Head is atraumatic, normocephalic. Pupils equal, round. Sclerae is anicteric. NECK: Supple. No JVD. No lymphadenopathy. No thyromegaly. LUNGS: Clear to auscultation. No wheezes or rhonchi. No intercostal ret ractions.no costochondral pain no sign of inflammation and no rash or shingle on the chest wall area. HEART: Regular rate and rhythm. 1/6 systolic murmur in the apex ABDOMEN: Soft. Bowel sounds are present. No masses. No tenderness. EXTREMITIES: No pedal edema. No calf tenderness. NEUROLOGICAL: Patient is awake, alert and oriented x3. Cranial nerves 2 through 12 are grossly intact. ASSESSMENT AND PLAN - chest pain: Atypical, patient has been seeing cardiology regularly no stress test last 3 years, and admit patient to the hospital, consult cardiology appreciated with plan for cardiac catheterization. Echocardiogram is pending. - Atypical finding of right upper lobe pneumonia: Clinically patient is not showing any sign and symptom of infection chest x-ray that shows sweats more consistent with mild pulmonary fibrosis and infection will order pro-calcitonin if negative no treatment for pneumonia will be require a total discharge otherwise will continue azithromycin for now. Pulmonary consult. - Mild arrhythmia, with palpitation and right bundle branch block: Has been stable. - possible pulmonary fibrosis: Not a clear etiology reconsult pulmonary patient might benefit from bronchodilator. With see if her echocardiogram shows any increase in right-sided heart pressure. - Hypertension: Remain on amlodipine 10 mg daily. - Hypothyroidism: Remain on levothyroxine 112 g daily. - Possibly enlarged thyroid thyroid lobe with nodular, thyroid ultrasound to be order to watch symptoms closely. - Nodular and lymph node enlargement in the mediastinotomy and subcarinal area, patient has more pulmonary fibrosis than any sign and symptom of CA we will consult pulmonary and see if patient benefit from trial of antibiotic repeat CAT scan or might require bronchoscopy. 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 - GI prophylaxis: Patient will be on Pepcid 20 mg daily. - DVT prophylaxis: Patient will be on heparin subcutaneous. - CODE STATUS: Full code. DISCHARGE PLAN To be determined. Consult with PT and OT added. Impression and plan of care have been directed as dictated by the signing physician. Sabrina Mike nurse practitioner acting as scribe for signing physician. Objective - Vital Signs Vital signs: Vital Signs Temp 98.2 F 10/18/21 01:05 Pulse 79 10/18/21 01:05 Resp 16 10/18/21 01:05 BP 124/58 10/18/21 01:05 Pulse Ox 92 L 10/18/21 01:05 FiO2 Intake & Output 10/17/21 10/18/21 10/18/21 18:59 06:59 18:59 Weight 68.039 kg 68.039 kg Other: # Voids 1 - Labs CBC & Chem 7: 10/18/21 06:16 10/18/21 06:16 Labs: Abnormal Lab Results - Last 24 Hours (Table) 10/17/21 10/17/21 Range/Units 12:21 12:21 D-Dimer 1.27 H (<0.60) mg/L FEU Glucose 153 H (74-99) mg/dL
--- NOTE | 2021-10-18 10:02 | P.CRDCN ---
History of Present Illness Consult date: 10/18/21 History of present illness: HISTORY OF PRESENT ILLNESS: This is a 80-year-old female with a past medical history significant for hypertension and hypothyroidism. Patient follows in the office with Dr. Salazar. We have been asked to see the patient in consultation for chest pain. Patient examined at the bedside. Patient states yesterday she began to have chest pain. She states the pain was in the middle of her chest. She also reports tightness in her left arm and felt as though a tourniquet was wrapped around her upper arm. She also reports radiation into her jaw and collarbone. She also reports feeling a stabbing sensation in her back. She states she has been having chest pain on and off for the past few months. * EKG reveals sinus mechanism with right bundle branch block * Chest xray bilateral apical pulmonary changes with right upper zone linear atelectasis/fibrosis. Suspected COPD changes. * Laboratory data: WBC 5.2. Hemoglobin 13.4. Platelet count 220. Sodium 142. Potassium 3.5. BUN 9. Creatinine 0.6. Troponin negative 3. * Current home cardiac medications include Lasix 20 mg twice a day and amlodipine 10 mg daily * Most recent echocardiogram obtained in 2019 revealed normal EF * Patient underwent stress testing in July 2018 which was negative for ischemia REVIEW OF SYSTEMS: At the time of my exam: CONSTITUTIONAL: Denies fever or chills. HEENT: Denies blurred vision, vision changes, or eye pain. Denies hemoptysis CARDIOVASCULAR: Denies chest pain. Denies orthopnea. Denies PND. Denies palpitations RESPIRATORY: Denies shortness of breath. GASTROINTESTINAL: Denies abdominal pain. Denies nausea or vomiting. HEMATOLOGIC: Denies bleeding disorders. GENITOURINARY: Denies any blood in urine. SKIN: Denies pruitis. Denies rash. PHYSICAL EXAM: VITAL SIGNS: Reviewed. GENERAL: Well-developed in no acute distress. HEENT: Head is normocephalic. Pupils are equal, round. Sclerae anicteric. Mucous membranes of the mouth are moist. Neck supple. No JVD or thyromegaly LUNGS: Respirations even and unlabored. Lungs essentially clear to auscultation bilaterally. HEART: Regular rate and rhythm. S1 and S2 heard. ABDOMEN: Soft. Nondistended. Nontender. EXTREMITIES: Normal range of motion. No clubbing or cyanosis. Peripheral pulses intact. Trace lower extremity edema NEUROLOGIC: Awake and alert. Oriented x 3. ASSESSMENT: Unstable angina Hypertension Hypothyroidism PLAN: Obtain 2D echo to assess cardiac structure and function Possible cardiac cath to be performed today. Patient and daughter agreeable. Awaiting call back from Dr. Salazar Further recommendations pending patient course. Nurse practitioner note has been reviewed by physician. Signing provider agrees with the documented findings, assessment, and plan of care. Past Medical History Past Medical History: Cancer, Chest Pain / Angina, Heart Failure, Hypertension, Thyroid Disorder Additional Past Medical History / Comment(s): right breast Cancer 04/2013 with lumpectomy and radiation tx 17 days. bilateral eye cataracts removed with lens implants History of Any Multi-Drug Resistant Organisms: None Reported Past Surgical History: Breast Surgery Additional Past Surgical History / Comment(s): left thumb trigger finger surgery, ganglion cyst x2 left wrist. bilateral toe bunionectomy. Past Anesthesia/Blood Transfusion Reactions: No Reported Reaction Past Psychological History: No Psychological Hx Reported Smoking Status: Never smoker Past Alcohol Use History: None Reported Past Drug Use History: None Reported - Past Family History Father Family Medical History: Congestive Heart Failure (CHF) Additional Family Medical History / Comment(s): of CHF at age 90 Mother Family Medical History: Congestive Heart Failure (CHF), Thyroid Disorder Additional Family Medical History / Comment(s): of chf at age 92 Medications and Allergies Home Medications Medication Instructions Recorded Confirmed Type Furosemide [Lasix] 20 mg PO BID 10/17/21 10/17/21 History Levothyroxine Sodium [Euthyrox] 112 mcg PO DAILY 10/17/21 10/17/21 History Potassium Chloride [Potassium 10 meq PO DAILY 10/17/21 10/17/21 History Chloride ER] amLODIPine [Norvasc] 10 mg PO DAILY 10/17/21 10/17/21 History Allergies Allergy/AdvReac Type Severity Reaction Status Date / Time No Known Allergies Allergy Verified 10/17/21 12:11 Physical Exam Vitals: Vital Signs Temp Pulse Pulse Resp BP BP Pulse Ox 10/18/21 07:34 98.3 F 69 18 121/57 94 L 10/18/21 01:05 98.2 F 79 16 124/58 92 L 10/17/21 20:03 98.2 F 71 17 133/67 94 L 10/17/21 14:00 67 18 151/64 10/17/21 13:00 65 18 131/54 10/17/21 12:08 98.8 F 75 18 158/66 97 10/17/21 11:00 97.7 F 94 20 146/66 97 Intake and Output 10/17/21 10/18/21 10/18/21 22:59 06:59 14:59 Other: # Voids 1 Weight 68.039 kg Results 10/18/21 06:16 10/18/21 06:16 Cardiac Enzymes 10/17/21 10/17/21 10/17/21 Range/Units 12:21 12:21 15:37 AST 24 (14-36) U/L Troponin I <0.012 <0.012 (0.000-0.034) ng/mL 10/17/21 10/18/21 Range/Units 18:09 06:16 AST 17 (14-36) U/L Troponin I <0.012 (0.000-0.034) ng/mL Coagulation 10/17/21 Range/Units 12:21 PT 10.2 (9.0-12.0) sec APTT 25.0 (22.0-30.0) sec Lipids 10/18/21 Range/Units 06:16 Triglycerides 83.00 (0.00-149.00) mg/dL Cholesterol 169.00 (0.00-200.00) mg/dL HDL Cholesterol 52.00 (40.00-60.00) mg/dL Cholesterol/HDL Ratio 3.25 Ratio CBC 10/17/21 10/18/21 Range/Units 12:21 06:16 WBC 5.2 5.20 (3.8-10.6) k/uL RBC 4.58 4.21 (3.80-5.40) m/uL Hgb 15.0 13.4 (11.4-16.0) gm/dL Hct 45.5 40.4 (34.0-46.0) % Plt Count 226 220 (150-450) k/uL Comprehensive Metabolic Panel 10/17/21 10/18/21 Range/Units 12:21 06:16 Sodium 141 142 (137-145) mmol/L Potassium 3.5 3.5 (3.5-5.1) mmol/L Chloride 102 106 (98-107) mmol/L Carbon Dioxide 30 23.6 (22-30) mmol/L BUN 11 9.0 (7-17) mg/dL Creatinine 0.80 0.6 (0.52-1.04) mg/dL Glucose 153 H 92 (74-99) mg/dL Calcium 9.0 8.6 L (8.4-10.2) mg/dL AST 24 17 (14-36) U/L ALT 15 10 (4-34) U/L Alkaline Phosphatase 47 44 (38-126) U/L Total Protein 7.2 5.9 L (6.3-8.2) g/dL Albumin 4.5 3.9 (3.5-5.0) g/dL Current Medications Generic Name Dose Route Start Last Admin Trade Name Freq PRN Reason Stop Dose Admin Amlodipine Besylate 10 mg 10/18/21 09:00 10/18/21 08:45 Amlodipine 10 Mg Tab PO 10 mg DAILY MAEVE Administration Aspirin 81 mg 10/18/21 09:00 Aspirin 81 Mg PO DAILY [facility] Azithromycin 500 mg 10/18/21 09:00 Azithromycin 500 Mg Tab PO 10/19/21 09:01 DAILY [facility] Protocol Famotidine 20 mg 10/18/21 09:00 10/18/21 08:45 Famotidine 20 Mg Tab PO 20 mg DAILY MAEVE Administration Furosemide 20 mg 10/18/21 09:00 Furosemide 20 Mg Tab PO BID@0900,1600 [facility] Heparin Sodium (Porcine) 5,000 unit 10/18/21 09:00 Heparin Sodium,Porcine/Pf 5,000 Unit/0.5 Ml Syringe SQ Q12HR [facility] Ceftriaxone Sodium 2 gm/ 50 mls @ 100 mls/hr 10/18/21 09:00 Sodium Chloride IVPB 10/21/21 09:29 Q24HR [facility] Protocol Levothyroxine Sodium 112 mcg 10/18/21 06:30 10/18/21 05:46 Levothyroxine 112 Mcg Tab PO 112 mcg DAILY@0630 [facility] Administration Miscellaneous Information 1 each 10/17/21 15:27 Pneumonia Protocol Utilized 1 Each Misc PO ONCE PRN Per Protocol Nitroglycerin 0.4 mg 10/17/21 15:26 Nitroglycerin Sl Tabs 0.4 Mg Tab SUBLINGUAL Q5M PRN Chest Pain Potassium Chloride 10 meq 10/18/21 09:00 10/18/21 08:45 Potassium Chloride Er 10 Meq Tab.Er.Prt PO 10 meq DAILY MAEVE Administration Intake and Output 10/17/21 10/18/21 10/18/21 22:59 06:59 14:59 Other: # Voids 1 Weight 68.039 kg 10/18/21 06:16 10/18/21 06:16
[2021-10-18] MEDS ORDERED: NITROGLYCERIN SL TABS 0.4 MG TAB SUBLINGUAL PRN ×2 (10:29→11:33)
[2021-10-18] MEDS ORDERED: ALPRAZolam 0.5 MG TAB PO PRN ×2 (10:29→11:33)
[2021-10-18] MEDS ORDERED: ALPRAZolam 0.25 MG TAB PO PRN ×2 (10:29→11:33)
[2021-10-18] MEDS ORDERED: ASPIRIN 325 MG TAB PO STA (10:29)
[2021-10-18] MEDS ORDERED: ATORVASTATIN 80 MG TAB PO STA (10:29)
[2021-10-18] MEDS ORDERED: SODIUM CHLORIDE 0.9% 1,000 ML in EMPTY BAG 1 BAG IV SCH (10:30)
[2021-10-18] MEDS: ASPIRIN 81 MG PO SCH ×2 (11:01→11:02)
[2021-10-18] MEDS: FUROSEMIDE 20 MG TAB PO SCH ×2 (11:27→18:31)
--- NOTE | 2021-10-18 11:58 | CA ---
Transthoracic Echo Report Name: Ruby Taveras Age: 80 Gender: F : 1940 Exam Date: 10/18/2021 09:31 Exam Location: [facility] Ht (in): 56 Wt (lb): 150 Ordering Physician: Hector Pang MD Attending/Referring Phys: [employer] Juliana Dean RDCS Procedure CPT: Indications: lvfunction Cardiac Hx: Technical Quality: Fair Contrast 1: Total Dose (mL): Contrast 2: Total Dose (mL): MEASUREMENTS (Male / Female) Normal Values 2D ECHO LV Diastolic Diameter PLAX 3.7 cm 4.2 - 5.9 / 3.9 - 5.3 cm LV Systolic Diameter PLAX 2.0 cm IVS Diastolic Thickness 1.3 cm 0.6 - 1.0 / 0.6 - 0.9 cm LVPW Diastolic Thickness 1.4 cm 0.6 - 1.0 / 0.6 - 0.9 cm LV Relative Wall Thickness 0.7 RV Internal Dim ED PLAX 3.5 cm LA Volume 27.4 cm??? 18 - 58 / 22 - 52 cm??? M-MODE Aortic Root Diameter MM 2.6 cm LA Systolic Diameter MM 3.4 cm LA Ao Ratio MM 1.3 AV Cusp Separation MM 1.9 cm DOPPLER AV Peak Velocity 132.0 cm/s AV Peak Gradient 7.0 mmHg AI Peak Velocity 417.7 cm/s AI Peak Gradient 69.8 mmHg AI Pressure Half Time 439.7 ms LVOT Peak Velocity 133.0 cm/s LVOT Peak Gradient 7.1 mmHg MV Area PHT 3.2 cm??? Mitral E Point Velocity 64.3 cm/s Mitral A Point Velocity 93.0 cm/s Mitral E to A Ratio 0.7 MV Deceleration Time 238.7 ms MV E' Velocity 6.5 cm/s Mitral E to MV E' Ratio 9.9 TR Peak Velocity 256.6 cm/s TR Peak Gradient 26.3 mmHg Right Ventricular Systolic Press 29.8 mmHg FINDINGS Left Ventricle Mildly increased left ventricular wall thickness. Normal left ventricular systolic function with no obvious regional wall motion abnormalities. Left ventricular ejection fraction is estimated at 55-60 %. Normal left ventricular diastolic filling pattern. Right Ventricle Mild right ventricular dilatation. Right ventricular systolic pressure within normal limits. Right Atrium Mild to moderate right atrial dilatation. Left Atrium Normal left atrial size. No evidence for an atrial septal defect. Mitral Valve Structurally normal mitral valve. No mitral stenosis, regurgitation or prolapse. Mild mitral annular calcification. Aortic Valve Trileaflet aortic valve. No aortic stenosis. Aortic valve sclerosis. Mild aortic regurgitation. Tricuspid Valve Structurally normal tricuspid valve. Mild tricuspid regurgitation. Pulmonic Valve Structurally normal pulmonic valve. Trace pulmonic regurgitation. Pericardium No pericardial effusion. Aorta Normal size aortic root and proximal ascending aorta. CONCLUSIONS Normal LV systolic function Previewed by: Dr. Eric Preciado MD (Electronically Signed) Final Date: 18 October 2021 11:57
--- NOTE | 2021-10-18 13:15 | P.CNPUL ---
History of Present Illness Consult date: 10/18/21 Reason for consult: abnormal CXR/CT History of present illness: 6-year-old female patient, admitted for chest pain. The patient reportedly squeezing type of chest pain radiating to her left upper extremity in the jaw area. She was also experiencing some exertional shortness of breath. At times, her pain sounded or felt like stabbing into her back. She apparently has been having on and off chest pain for the past few months. EKG was nonspecific and it showed a normal sinus rhythm with IV pattern. The patient had a white cell count of 5.2 with hemoglobin 15.5. Troponins 3 has been negative and the patient's creatinine was 0.6 with a mean of 9 and his sodium level of 142. The patient had an echocardiogram from 2019 that showed a normal EF and previous sepsis from July 2018 was negative for ischemia. She was admitted to the [facility] and the patient went underwent cardiac catheterization tomorrow. Meanwhile, a CTA of the chest was done that showed a large right lobe of the thyroid and the patient was also found to have biapical scarring and some nonspecific mediastinal lymphadenopathy. No other major abnormalities were noted. No airspace disease. No consolidation. No pneumonia. The patient otherwise has no other complaints. She has some chronic back pain and hypothyroidism and hypertension. No history of stroke. No history of smoking. No history of COPD or asthma. No recurrent pneumonias. No previous history of DVT or pulmonary embolism. Review of Systems Constitutional: Denies chills, Denies fever Eyes: denies as per HPI, denies blurred vision, denies bulging eye, denies decreased vision, denies diplopia, denies discharge, denies dry eye, denies irritation, denies itching, denies pain, denies photophobia, denies loss of peripheral vision, denies loss of vision, denies tunnel vision/blind spots Ears: deny: decreased hearing, ear discharge, earache, tinnitus Ears, nose, mouth and throat: Reports as per HPI Breasts: absent: as per HPI, change in shape, gynecomastia, masses, nipple discharge, pain, skin changes, swelling Cardiovascular: Reports chest pain, Reports decreased exercise tolerance Respiratory: Reports as per HPI, Reports dyspnea Gastrointestinal: Reports as per HPI Genitourinary: Reports as per HPI Menstruation: Reports as per HPI Musculoskeletal: Reports as per HPI Musculoskeletal: absent: ankle pain, ankle stiffness, ankle swelling, as per HPI, elbow pain, elbow stiffness, elbow swelling, foot pain, foot stiffness, foot swelling, hand pain, hand stiffness, hand swelling, hip pain, hip stiffness, hip swelling, knee pain, knee stiffness, knee swelling, shoulder pain, shoulder stiffness, shoulder swelling, wrist pain, wrist stiffness, wrist swelling Integumentary: Reports as per HPI Neurological: Reports as per HPI Psychiatric: Reports as per HPI Endocrine: Reports as per HPI Hematologic/Lymphatic: Reports as per HPI Allergic/Immunologic: Reports as per HPI Past Medical History Past Medical History: Cancer, Chest Pain / Angina, Heart Failure, Hypertension, Thyroid Disorder Additional Past Medical History / Comment(s): right breast Cancer 04/2013 with lumpectomy and radiation tx 17 days. bilateral eye cataracts removed with lens implants History of Any Multi-Drug Resistant Organisms: None Reported Past Surgical History: Breast Surgery Additional Past Surgical History / Comment(s): left thumb trigger finger surgery, ganglion cyst x2 left wrist. bilateral toe bunionectomy. Past Anesthesia/Blood Transfusion Reactions: No Reported Reaction Past Psychological History: No Psychological Hx Reported Smoking Status: Never smoker Past Alcohol Use History: None Reported Past Drug Use History: None Reported - Past Family History Father Family Medical History: Congestive Heart Failure (CHF) Additional Family Medical History / Comment(s): of CHF at age 90 Mother Family Medical History: Congestive Heart Failure (CHF), Thyroid Disorder Additional Family Medical History / Comment(s): of chf at age 92 Medications and Allergies Home Medications Medication Instructions Recorded Confirmed Type Furosemide [Lasix] 20 mg PO BID 10/17/21 10/17/21 History Levothyroxine Sodium [Euthyrox] 112 mcg PO DAILY 10/17/21 10/17/21 History Potassium Chloride [Potassium 10 meq PO DAILY 10/17/21 10/17/21 History Chloride ER] amLODIPine [Norvasc] 10 mg PO DAILY 10/17/21 10/17/21 History Allergies Allergy/AdvReac Type Severity Reaction Status Date / Time No Known Allergies Allergy Verified 10/17/21 12:11 Physical Exam Vitals: Vital Signs Temp Pulse Pulse Resp BP BP Pulse Ox 10/18/21 07:34 98.3 F 69 18 121/57 94 L 10/18/21 01:05 98.2 F 79 16 124/58 92 L 10/17/21 20:03 98.2 F 71 17 133/67 94 L 10/17/21 14:00 67 18 151/64 Intake and Output 10/17/21 10/18/21 10/18/21 22:59 06:59 14:59 Other: # Voids 1 Weight 68.039 kg Gen. appearance the patient is calm and comfortable and the breathing is nonlabored and the patient has no specific complaints The patient appeared well nourished and normally developed. Vital signs as documented. Head exam is unremarkable. No scleral icterus or corneal arcus noted. Neck is without jugular venous distension, thyromegaly, or carotid bruits. Carotid upstrokes are brisk bilaterally. Lungs are clear to auscultation and percussion. Cardiac exam reveals the PMI to be normally sized and situated. Rhythm is regular. First and second heart sounds normal. No murmurs, rubs or gallops. Abdominal exam reveals normal bowel sounds, no masses, no organomegaly and no aortic enlargement. Extremities are nonedematous and both femoral and pedal pulses are normal. Examination of the skin revealed no evidence of significant rashes, suspicious appearing nevi or other concerning lesions. Neurologically, the patient is awake and alert and the patient does not have any focal neurological deficit. Cranial nerves are essentially intact. Results - Laboratory Findings CBC and BMP: 10/18/21 06:16 10/18/21 06:16 PT/INR, D-dimer PT 10.2 sec (9.0-12.0) 10/17/21 12:21 INR 0.9 (<1.2) 10/17/21 12:21 D-Dimer 1.27 mg/L FEU (<0.60) H 10/17/21 12:21 Abnormal lab findings: Abnormal Labs 10/17/21 10/17/21 10/18/21 12:21 12:21 06:16 D-Dimer 1.27 H Glucose 153 H Calcium 8.6 L Total Protein 5.9 L - Diagnostic Findings Chest x-ray: image reviewed CT scan - chest: image reviewed Assessment and Plan Plan: Chest pain, highly suggestive of unstable angina, the patient is going to undergo a cardiac catheterization in the morning Exertional dyspnea, rule out angina equivalent. Biapical pulmonary scarring, nonspecific and there is no evidence of any formal chronic interstitial lung disease. The patient does have some nonspecific mediastinal lymphadenopathy also. Thyroid gland enlargement Previous history of breast cancer status post lumpectomy and radiation therapy, remission Hypertension Hypothyroidism Plan No active pulmonary issues Reassure the patient on the results of the CAT scan findings Ultrasound of the thyroid Cardiac catheterization in a.m.
[2021-10-18] MEDS ORDERED: HEPARIN SODIUM 1,000 UN/ML (10ML VL) IV ONE (14:26)
[2021-10-18] MEDS ORDERED: HEPARIN SODIUM 1,000 UN/ML (10ML VL) IV PRN (14:26)
[2021-10-18 14:50] LABS: Basophils # (A) 0.1 k/uL (0-0.2); Basophils % (A) 2 %; Eosinophils # (A) 0.1 k/uL (0-0.7); Eosinophils % (A) 2 %; HCT 43.8 % (34.0-46.0); HGB 14.2 gm/dL (11.4-16.0); Lymphocytes % (A) 16 %; MCH 32.1 pg (25.0-35.0); MCHC 32.4 g/dL (31.0-37.0); Mean Platelet Volume 7.5; Monocytes # (A) 0.6 k/uL (0-1.0); Monocytes % (A) 9 %; Neutrophils # (A) 4.4 k/uL (1.3-7.7); Neutrophils % (A) 70 %; Platelet Count 229 k/uL (150-450); RBC 4.42 m/uL (3.80-5.40); WBC 6.2 k/uL (3.8-10.6)
[2021-10-18 15:01] LABS: Prothrombin Time 10.5 sec (9.0-12.0)
[2021-10-18 15:02] LABS: Partial Thromboplastin Time 25.8 sec (22.0-30.0)
[2021-10-18] MEDS: HEPARIN SOD,PORK IN 0.45% NACL 25,000 UNIT in 0.45% NACL 1 250ML.BAG IV SCH (15:33)
--- NOTE | 2021-10-18 15:47 | US ---
EXAMINATION TYPE: US thyroid st tissue head/neck DATE OF EXAM: 10/18/2021 COMPARISON: NONE CLINICAL HISTORY: nodule on CT. GLAND SIZE: Right Lobe: 3.2 x 1.1 x 1.3 cm Overall Parenchyma: heterogenous Left Lobe: 4.0 x 1.0 x 1.0 cm Overall Parenchyma: heterogeneous Isthmus Thickness: 0.2 cm NODULES RIGHT: # of nodules measured on right: 1 1. 0.7 X 0.7 X 0.6cm lower mid cystic or almost completely cystic, hypoechoic nodule, which is tall er than wide, with ill-defined margins, without echogenic foci. LEFT: # of nodules measured on left: 0 ISTHMUS: # of nodules measured in the isthmus: Bilateral neck scanned, no evidence of lymphadenopathy. IMPRESSION: 1. Moderately suspicious nodule. Consider follow-up exam in one year.. 2017 ACR TI-RADS LEVEL: TR-RADS 3 - Mildly Suspicious: Follow if > 1.5 cm, FNA if > 2.5 cm *Highest TI-RADS level nodule reported
[2021-10-18] MEDS: SODIUM CHLORIDE 0.9% 1,000 ML in EMPTY BAG 1 BAG IV SCH (22:13)
[2021-10-19] MEDS ORDERED: ASPIRIN 325 MG TAB PO ONE (05:00)
[2021-10-19] MEDS ORDERED: ATORVASTATIN 80 MG TAB PO ONE (05:00)
[2021-10-19] MEDS: LEVOTHYROXINE 112 MCG TAB PO SCH (05:54)
[2021-10-19 06:05] LABS: Partial Thromboplastin Time 74.3 sec (22.0-30.0); Prothrombin Time 10.7 sec (9.0-12.0)
[2021-10-19] MEDS ORDERED: HEPARIN SODIUM,PORCINE 2,500 UNIT in SODIUM CHLORIDE 0.9% 250 ML IRRIGATION PRN ×4 (07:00)
[2021-10-19] MEDS ORDERED: HEPARIN SODIUM,PORCINE 10,000 UNIT in SODIUM CHLORIDE 0.9% 1,000 ML IRRIGATION PRN ×4 (07:00)
[2021-10-19] MEDS: ASPIRIN 81 MG PO SCH (07:23)
[2021-10-19] MEDS: FAMOTIDINE 20 MG TAB PO SCH (07:34)
[2021-10-19] MEDS: POTASSIUM CHLORIDE ER 10 MEQ TAB.ER.PRT PO SCH (07:34)
[2021-10-19] MEDS: FUROSEMIDE 20 MG TAB PO SCH ×2 (07:36→16:38)
[2021-10-19] MEDS ORDERED: VERAPAMIL 2.5 MG/ML 2 ML AMP ONE (08:37)
[2021-10-19] MEDS ORDERED: HEPARIN SODIUM 1,000 UN/ML (10ML VL) ONE (08:37)
[2021-10-19] MEDS ORDERED: fentaNYL (PF) 50 MCG/ML 2 ML AMP ONE (08:37)
[2021-10-19] MEDS ORDERED: IV FLUID CONTINUATION 300 ML IV ONE (08:59)
[2021-10-19] MEDS ORDERED: fentaNYL (PF) 50 MCG/ML 2 ML AMP IV ONE (09:18)
[2021-10-19] MEDS ORDERED: LIDOCAINE 1% INJ 10MG/ML (5 ML VIAL-PF) SQ ONE ×2 (09:20→09:21)
[2021-10-19] MEDS ORDERED: VERAPAMIL SYRINGE (5 MG/10 ML) INTRAARTER ONE (09:25)
[2021-10-19 09:27] LABS: Basophils # (A) 0 X 10*3/uL (0.00-0.10); Basophils % (A) 0 %; Eosinophils # (A) 0 X 10*3/uL (0.04-0.35); Eosinophils % (A) 0 %; HCT 42.4 % (37.2-46.3); HGB 14.3 g/dL (12.0-15.0); Immature Grans, Automated 0.2 %; Lymphocytes # (A) 1.36 X 10*3/uL (0.90-5.00); Lymphocytes % (A) 29.9 %; MCH 32.5 pg (27.0-32.0); MCHC 33.7 g/dL (32.0-37.0); MCV 96.4 fL (80.0-97.0); Mean Platelet Volume 9.7 fL (9.5-12.2); Monocytes # (A) 0.69 X 10*3/uL (0.20-1.00); Monocytes % (A) 15.2 %; NRBC Per 100 WBC 0 /100 WBCS (0.0-0.0); Neutrophils # (A) 2.49 X 10*3/uL (1.80-7.70); Neutrophils % (A) 54.7 %; Platelet Count 220 X 10*3/uL (140-440); RDW 12.1 % (11.5-14.5); WBC 4.55 X 10*3/uL (4.50-10.00)
[2021-10-19] MEDS ORDERED: HEPARIN SODIUM 1,000 UN/ML (10ML VL) IV ONE (09:27)
[2021-10-19] MEDS ORDERED: IOPAMIDOL-370 125ML BTL INJ ONE (09:36)
[2021-10-19] MEDS ORDERED: RX INFO: IV CONTRAST WAS GIVEN 1 EACH MISC MISCELLANE PRN (09:44)
[2021-10-19] MEDS ORDERED: SODIUM CHLORIDE 0.9% 1,000 ML IV SCH (09:45)
--- NOTE | 2021-10-19 09:50 | P.CARDCATH ---
Date of Procedure: 10/19/21 Description of Procedure: Cardiac Catheterization: The patient is an 80-year-old female with a history of hypertension presented with symptoms of progressive chest discomfort, her cardiac enzymes were unremarkable. She was evaluated by Dr. Preciado Recommendations were made regarding cardiac catheterization, the risks and the complications were discussed with the patient who is in full understanding and agreement. Procedure Description: Patient was brought to chemical lab technician in fasting semi-sedated state after receiving Fentanyl and Benadryl achieiving moderate conscious sedated state. Using Xylocaine Anesthesia and Seldinger technique, a 6-Mauritian sheath was introduced in the right radial artery . Subsequently, selective coronary angiography was performed using a 5-Mauritian 3.5 bend Hamzah catheter. Multiple views of the coronary artery including hemiaxial views were obtained. The 5-Mauritian Pigtail catheter was used to cross the aortic valve and LVEDP was calculated. Following that, catheter and sheath were removed. Hemostasis was obtained with deployment of TR band . There was no immediate complication. Patient was returned to room in stable condition. Of note, the patient received a total of 3500 units of intravenous heparin as well as intra-arterial verapamil. There was no immediate complications. Findings: Left main: This is a size vessel, bifurcating into left circumflex and LAD, left main has no high-grade stenosis. LAD: This is a large tortuous vessel, reaching to the apex, with a wrap around the apex segment. The LAD has no evidence of high-grade stenosis Left circumflex: This is a large nondominant vessel giving rise to 3 obtuse marginal branch the first and second are large in caliber. The left circumflex and its branches have no evidence of obstructive disease RCA: This is a dominant vessel, bifurcating to PDA and PLV, the RCA has no high- grade stenosis. Left Ventriculogram: Not performed Hemodynamics: There was no gradient across the aortic valve, LVEDP 14-16 mmHg Conclusion: 1. Normal coronary arteries 2. Right dominance Recommendations: I see no evidence to suggest obstructive disease as the etiology of her symptoms. I would continue medical therapy. The findings and recommendations were discussed with the patient and her family, they are in full understanding and agreement. Duration of sedation is 13 minutes.
--- NOTE | 2021-10-19 10:19 | P.DS ---
Providers Date of admission: 10/17/21 15:28 Expected date of discharge: 10/19/21 Attending physician: Hector Pang Consults: 10/17/21 15:26 Consult Physician Urgent Consulting Provider: Derrick Salazar Consult Reason/Comments: cp Do you want consulting provider notified?: Yes 10/18/21 00:01 Consult Physician Routine Consulting Provider: Lawrence Rodarte Consult Reason/Comments: Pulmonary Fibrosis VS mass and Lymph nodds of the Mediastinal area Do you want consulting provider notified?: Yes Primary care physician: Melina James [facility] Course: HISTORY OF PRESENT ILLNESS 80-year-old female one of Dr. James's patient who apparently had moved from [place] a few months ago used to see reception agent in [place] regular basis for right bundle branch block along with heart murmur had stress test and echo last time in 2019. Patient started seen Dr. Salazar in [facility] for the continued if care on cardiology has been doing well no testing done in [facility] this time patient been watch clinically has been stable on current medication. Patient woke up at 7:00 in the morning with midsternal chest pain lasted an hour get up and move around her symptoms become slightly bit worse developed to have shoulder blade pain radiates from the front to the back associated with mild shortness of breath nausea without vomiting developed to have mild palpitation and worsening symptom with nausea become slightly bit lightheaded as well. With the symptom has been slightly bit worse ended up coming to the emergency department at [facility] where was seen and evaluated her CK and troponin was negative blood sugar was mildly elevated d-dimer came back elevated patient ended up going for CTA which was negative for pulmonary embolism but result were consistent with pneumonia in the right upper lobe even though patient is not symptomatic had mild bilateral apical pulmonary fibrosis and tiny calcification no pleural or pericardial effusion was found 14 mm subcarinal lymph node other scattered smaller bilateral hilar and mediastinal lymph node nonspecific also had suspected enlarged right thyroid lobe recommending ultrasound of the thyroid at some point. Thoracic spine and bone mildly consistent with osteopenia. Patient will be hospitalized for her anginal chest pain will be seen cardiology, echocardiogram will be done with the patient benefit from going for nuclear stress test or not to be determined by cardiology. 10/18: Patient is continued on azithromycin and ceftriaxone. Patient has been afebrile, heart rate 69, blood pressure 121/57, pulse ox 94% on room air. Repeat blood work reveals normal CBC. Electrolytes renal function all normal. Troponin negative on 3 draws. Liver function tests normal. Triglycerides 83, cholesterol 169, LDL 100, HDL 52. We will add an ultrasound of the thyroid to evaluate nodule. Patient has been seen by cardiology with plan for cardiac catheterization but will discuss with patient's daughter per patient's request. Consult is in place with pulmonary medicine. Echocardiogram pending. Repeat chest x-ray reveals stable condition. 10/19: Patient has been afebrile, heart rate 79, blood pressure 127/62, pulse ox 96% on room air. Repeat CBC is unremarkable. Cardiac catheterization revealed normal coronary arteries and recommendations for medical management. Echocardiogram revealed EF of 55-60%. Thyroid ultrasound revealed moderately suspicious nodule. Consider follow-up in one year. Patient has been seen by Dr. Monteiro and states no active pulmonary issues with biapical pulmonary scarring, nonspecific no evidence of any formal chronic interstitial lung disease. Patient does have some nonspecific mediastinal lymphadenopathy. Patient's daughter is at bedside and questions were answered. Blood culture is showing no growth at 24 hours 2 specimens. Patient will be discharged home today in stable condition. DISCHARGE DIAGNOSES - chest pain: Atypical - Atypical finding of right upper lobe pneumonia ruled out by pulmonary medicine - Mild arrhythmia, with palpitation and right bundle branch block: Has been stable. - possible pulmonary fibrosis ruled out by pulmonary medicine - Hypertension - Hypothyroidism - Possibly enlarged thyroid thyroid lobe with nodular, thyroid ultrasound repeat in one year - Nodular and lymph node enlargement in the mediastinotomy and subcarinal - Edema . DISCHARGE PLAN Home at [facility] without home care Greater than 35 minutes was utilized and coordinating patient's discharge. Impression and plan of care have been directed as dictated by the signing physician. Sabrina Mike nurse practitioner acting as scribe for signing physician. Patient Condition at Discharge: Good Plan - Discharge Summary Discharge Rx Participant: No New Discharge Prescriptions: Continue Potassium Chloride [Potassium Chloride ER] 10 meq PO DAILY Levothyroxine Sodium [Euthyrox] 112 mcg PO DAILY amLODIPine [Norvasc] 10 mg PO DAILY Furosemide [Lasix] 20 mg PO BID Discharge Medication List Furosemide [Lasix] 20 mg PO BID 10/17/21 [History] Levothyroxine Sodium [Euthyrox] 112 mcg PO DAILY 10/17/21 [History] Potassium Chloride [Potassium Chloride ER] 10 meq PO DAILY 10/17/21 [History] amLODIPine [Norvasc] 10 mg PO DAILY 10/17/21 [History] Follow up Appointment(s)/Referral(s): Derrick Salazar MD [STAFF PHYSICIAN] - 1 Week Melina James MD [Primary Care Provider] - 1 Week Discharge Disposition: HOME SELF-CARE
[2021-10-19] MEDS: HEPARIN SOD,PORK IN 0.45% NACL 25,000 UNIT in 0.45% NACL 1 250ML.BAG IV SCH (14:22)
[2021-10-19] MEDS: SODIUM CHLORIDE 0.9% 1,000 ML in EMPTY BAG 1 BAG IV SCH (15:43)
[2021-10-19 16:10] VITALS: BP 127/63; PULSE 80; RESP 16; TEMP 97.8
== END 2021-10-19 17:20 | disposition home or self-care (01) ==
LOC: EC 10:55 → 6NMEDSUR 15:28
PROVIDERS: ADMIT Internal Medicine Geriatric Medicine; ATTEND Internal Medicine Geriatric Medicine
DX: R07.89 Other chest pain (principal); I45.10 Unspecified right bundle-branch block; I49.9 Cardiac arrhythmia, unspecified; R79.89 Other specified abnormal findings of blood chemistry; I11.0 Hypertensive heart disease with heart failure; I50.9 Heart failure, unspecified; R11.0 Nausea; J98.4 Other disorders of lung; R91.8 Other nonspecific abnormal finding of lung field; R59.0 Localized enlarged lymph nodes; R42 Dizziness and giddiness; E03.9 Hypothyroidism, unspecified; I08.2 Rheumatic disorders of both aortic and tricuspid valves; G89.29 Other chronic pain; M54.9 Dorsalgia, unspecified; Z79.890 Hormone replacement therapy; Z79.899 Other long term (current) drug therapy; Z85.3 Personal history of malignant neoplasm of breast; Z98.42 Cataract extraction status, left eye; Z98.41 Cataract extraction status, right eye; Z96.1 Presence of intraocular lens; Z92.3 Personal history of irradiation; Z98.890 Other specified postprocedural states; Z82.49 Family history of ischemic heart disease and other diseases of the circulatory system; Z83.49 Family history of other endocrine, nutritional and metabolic diseases
CPT/HCPCS: 96376; 96366 ×3; 96367 ×2; 96372; 96365; 99285; 36415; 93306; 97165; 93458; 85379; 80061; 80053 ×2; 82308; 82150; 83605; 83690; 83735; 84484; 85025 ×3; 85027; 85610 ×3; 85730 ×3; 87040; 71046 ×2; 76536; 71275; G0378 ×3; C1769 ×2; C1894; J2001; J0456; J0696 ×2; J3010; J1644 ×4; Q9967 ×2

== ENCOUNTER 2021-11-28 09:34 | Day surgery (SDC) | payer MEDICARE, BC ==
[2021-11-24 11:48] VITALS: BMI 31.6
[~2021-11-28 09:34] MED LIST: LACTATED RINGERS 1,000 ML IV SCH; LIDOCAINE 1% (10MG/ML) FOR IV START INTRADERMA PRN
[2021-11-28 09:51] VITALS: RESP 16; TEMP 98
[2021-11-28] MEDS ORDERED: LIDOCAINE 2% INJ 20 MG/ML (2 ML VIAL) ONE (10:57)
[2021-11-28] MEDS ORDERED: PROPOFOL 10 MG/ML 20 ML VIAL IV ONE (10:57)
--- NOTE | 2021-11-28 11:10 | P.PCN ---
Date of Procedure: 11/28/21 Procedure(s) Performed: BRIEF HISTORY: Patient is a 80-year-old, pleasant, white female scheduled for an upper endoscopy as a part of evaluation of throat irritation for the last few months duration. He does complain of occasional heartburn but no dysphagia or odynophagia. PROCEDURE PERFORMED: Esophagogastroduodenoscopy with biopsy. PREOPERATIVE DIAGNOSIS: GERD/throat irritation of 2 months duration. IV sedation per anesthesia. PROCEDURE: After informed consent was obtained, the patient was brought into the endoscopy unit. IV sedation was administered by Anesthesia under continuous monitoring. Initially the Olympus GIF-140 video endoscope was inserted into the mouth. Esophagus intubated without any difficulty. It was gradually advanced into the stomach and duodenum and carefully examined. The bulb and the second part of the duodenum appeared normal. The scope at this time was withdrawn to the stomach, adequately insufflated with air, and upon careful examination, mucosa of the antrum and mild gastritis and biopsies were done from this area., body, cardia and the fundus appeared normal. The scope was then withdrawn into the esophagus. The GE junction was located at 39 cm from the incisors. Small sliding type hiatal hernia noted. There were linear erosions in the distal esophagus consistent with LA grade B reflux esophagitis. Biopsies were done from this area. The rest of esophagus appeared normal and the patient tolerated the procedure well. IMPRESSION: 1. Linear erosions in the distal esophagus consistent with LA grade B reflux esophagitis. 2. Small hiatal hernia 3. Mild antral gastritis. RECOMMENDATIONS: The findings of this examination were discussed with the patient as well as a family. She was advised to follow with the biopsy results. Recommend using [id number] Prilosec 20 mg daily and follow antireflux measures.
[2021-11-28 11:37] VITALS: BP 120/72; PULSE 67
== END 2021-11-28 12:41 | disposition home or self-care (01) ==
LOC: ORWHC2ENDO 09:34
PROVIDERS: ATTEND Internal Medicine Gastroenterology
DX: K21.00 Gastro-esophageal reflux disease with esophagitis, without bleeding (principal); K29.50 Unspecified chronic gastritis without bleeding; K44.9 Diaphragmatic hernia without obstruction or gangrene; I10 Essential (primary) hypertension; E07.9 Disorder of thyroid, unspecified; Z79.899 Other long term (current) drug therapy; Z79.890 Hormone replacement therapy; Z82.49 Family history of ischemic heart disease and other diseases of the circulatory system
CPT/HCPCS: 88305; 43239; J2704; J2001

== ENCOUNTER → 2022-01-23 | Outpatient (CLI) | payer MEDICARE, BC ==
--- NOTE | 2022-01-23 12:58 | XR ---
EXAMINATION TYPE: XR chest 2V DATE OF EXAM: 01/23/2022 12:53 PM COMPARISON: Chest radiographs from 10/18/2021, CTA chest 10/17/2021. TECHNIQUE: XR chest 2V Frontal and lateral views of the chest. CLINICAL INDICATION:Female, 81 years old with history of J90 PLEURAL EFFUSION, NOT ELSEWHERE CLASSIFI ED; FINDINGS: Lungs/Pleura: There is no evidence of pleural effusion, focal consolidation, or pneumothorax. Stable bilateral apical pulmonary fibrotic changes and COPD changes. Pulmonary vascularity: Unremarkable. Heart/mediastinum: Cardiomediastinal silhouette is unremarkable. Atherosclerotic calcifications are seen in the aorta. Musculoskeletal: Complete collapse of the T12 vertebral body redemonstrated. IMPRESSION: No acute cardiopulmonary disease/process. No significant change from prior examination.
== END | disposition home or self-care (01) ==
LOC: RADXRMAIN 12:32
PROVIDERS: ATTEND Family Medicine
DX: J90 Pleural effusion, not elsewhere classified (principal)
CPT/HCPCS: 71046

== ENCOUNTER → 2022-12-26 | Outpatient (CLI) | payer MEDICARE, BC ==
--- NOTE | 2022-12-27 08:34 | US ---
EXAMINATION TYPE: US thyroid st tissue head/neck DATE OF EXAM: 12/26/2022 COMPARISON: US 10/18/2021 CLINICAL INDICATION: Female, 81 years old with history of E04.1 NONTOXIC SINGLE THYROID NODULE; Nonto xic single thyroid nodule. Patient takes thyroid medication. GLAND SIZE: Right Lobe: 2.4 x 1.2 x 1.0 cm Overall Parenchyma: Very heterogeneous Left Lobe: 2.3 x 0.6 x 0.5 cm Overall Parenchyma: Very heterogeneous Isthmus Thickness: 0.13 cm NODULES RIGHT: # of nodules measured on right: 0 Unable to visualize prior nodule on ultrasound from 10/18/2022. Limited assessment due to the degree of heterogeneity. LEFT: # of nodules measured on left: 0 ISTHMUS: # of nodules measured in the isthmus: 0 Bilateral neck scanned, no evidence of lymphadenopathy. IMPRESSION: Small and heterogeneous thyroid gland suggesting chronic hypothyroidism. The previous nodule seen on 10/18/2022 is no longer well delineated on the present study.
== END | disposition home or self-care (01) ==
LOC: RADUSWWP 15:58
PROVIDERS: ATTEND Family Medicine
DX: E04.1 Nontoxic single thyroid nodule (principal)
CPT/HCPCS: 76536

== ENCOUNTER → 2023-01-11 | Outpatient (CLI) | payer MEDICARE, BC ==
--- NOTE | 2023-01-11 23:42 | MR ---
EXAMINATION: MRI ABDOMEN WITHOUT AND WITH CONTRAST. DATE OF EXAMINATION: 01/11/2023. COMPARISON: None available. INDICATION: Abdominal pain with reflux and history of breast cancer. PROCEDURE: Multiplanar, multi sequence images of the abdomen were obtained without and with contrast. 6 mm of Gadavist was given intravenously. FINDINGS: LOWER CHEST : The visualized lung bases are clear. There are no pleural or pericardial effusions. ABDOMEN: Liver and Biliary system: Normal. Adrenal glands: Normal. Kidneys and ureters: Normal. Spleen: Normal. Pancreas: Normal. Gallbladder: Normal. Lymph nodes, Peritoneum and mesentery: There is no mesenteric or retroperitoneal lymphadenopathy. Gastrointestinal tract: No abnormal bowel thickening is seen. There is a small sliding hiatal hernia . Aorta/IVC: No aortic aneurysm.. IVC normal. Abdominal wall: Normal. BONES: There are no osseous destructive lesions.. ADDITIONAL SIGNIFICANT FINDINGS: None. IMPRESSION: 1. No acute findings. 2. No evidence of cholelithiasis. 3. No evidence of biliary ductal dilation. 4. No evidence of abnormal masses. 5. Small hiatal hernia.
== END | disposition home or self-care (01) ==
LOC: RADMRIMAIN 16:23
PROVIDERS: ATTEND Family Medicine
DX: K44.9 Diaphragmatic hernia without obstruction or gangrene (principal); K21.9 Gastro-esophageal reflux disease without esophagitis; R97.8 Other abnormal tumor markers; Z85.3 Personal history of malignant neoplasm of breast
CPT/HCPCS: 74183; A9585

== ENCOUNTER 2023-04-03 12:17 | Inpatient (IN) | payer MEDICARE, BC ==
--- NOTE | 2023-04-03 12:40 | ED ---
General Adult HPI - General Chief complaint: Weakness Stated complaint: weakness Source: patient, EMS Mode of arrival: EMS Limitations: no limitations - History of Present Illness Initial comments: Dictation was produced using [employer] dictation software. please excuse any gra mmatical, word or spelling errors. Chief Complaint: 82-year-old female multiple Mckeon's presents to the ER for generalized weakness and hypoxia History of Present Illness: Patient is a 2-year-old female presents emergency department for generalized weakness she is brought in by EMS from home. Recently she had returned from [place] on a road trip. She did have worsening weakness. She diagnosed with UTI recently. EMS upon arrivalthat she was really having difficulty standing. Denies any fevers. She has a very mild left frontal headache. Denies any numbness or paresthesias. No pain complains. No shortness of breath. EMS reports the patient was hypoxic into the low 90s patient is placed on supplemental oxygen. The ROS documented in this emergency department record has been reviewed and confirmed by me. Those systems with pertinent positive or negative responses have been documented in the HPI. All other systems are other negative and/or noncontributory. - Related Data Home Medications Medication Instructions Recorded Confirmed Levothyroxine Sodium [Euthyrox] 112 mcg PO DAILY 10/17/21 11/24/21 Potassium Chloride [Potassium 10 meq PO DAILY 10/17/21 11/28/21 Chloride ER] amLODIPine [Norvasc] 10 mg PO DAILY 10/17/21 11/24/21 Allergies Allergy/AdvReac Type Severity Reaction Status Date / Time No Known Allergies Allergy Verified 04/03/23 12:29 Review of Systems ROS Statement: Those systems with pertinent positive or pertinent negative responses have been documented in the HPI. ROS Other: All systems not noted in ROS Statement are negative. Past Medical History Past Medical History: Cancer, Chest Pain / Angina, Heart Failure, Hypertension, Thyroid Disorder Additional Past Medical History / Comment(s): right breast Cancer 04/2013 with lumpectomy and radiation tx 17 days. bilateral eye cataracts removed with lens implants History of Any Multi-Drug Resistant Organisms: None Reported Past Surgical History: Breast Surgery Additional Past Surgical History / Comment(s): left thumb trigger finger surgery, ganglion cyst x2 left wrist. bilateral toe bunionectomy. Past Anesthesia/Blood Transfusion Reactions: No Reported Reaction Past Psychological History: No Psychological Hx Reported Smoking Status: Never smoker Past Alcohol Use History: Occasional Past Drug Use History: None Reported - Past Family History Father Family Medical History: Congestive Heart Failure (CHF) Additional Family Medical History / Comment(s): of CHF at age 90 Mother Family Medical History: Congestive Heart Failure (CHF), Thyroid Disorder Additional Family Medical History / Comment(s): of chf at age 92 General Exam - General Exam Comments Initial Comments: PHYSICAL EXAM: General Impression: Alert and oriented x3, not in acute distress HEENT: Normocephalic atraumatic, extra-ocular movements intact, pupils equal and reactive to light bilaterally, mucous membranes moist. Cardiovascular: Heart regular rate and rhythm Chest: Able to complete full sentences, no retractions, no tachypnea Abdomen: abdomen soft, non-tender, non-distended, no organomegaly Musculoskeletal: Pulses present and equal in all extremities, no peripheral edema Motor: no focal deficits noted Neurological: CN II-XII grossly intact, no focal motor or sensory deficits noted Skin: Intact with no visualized rashes Psych: Normal affect and mood Limitations: no limitations Course Vital Signs 04/03/23 12:25 Temperature 98.6 F Pulse Rate 112 H Respiratory 18 Rate Blood Pressure 137/61 O2 Sat by Pulse 93 L Oximetry - Reevaluation(s) Reevaluation #1: 04/03/23 14:06 More history obtained from daughter who just arrived at the bedside states that en route back to [place] patient suffered a mechanical fall where she fell backwards. She was seen at another emergency department where she was diagnosed with occipital skull fracture and discharge. Since then patient has been having worsening weakness symptoms. She did see her primary care doctor recently who diagnosed patient with UTI. She is prescribed antibiotics, metoprolol and dementia medication EKG Findings - EKG Comments: EKG Findings:: My EKG interpretation: Ventricular rate of 90, sinus tachycardia,. 1:30, QRS 140, QTc 417, right bundle branch block. No UT prolongation, no QTC prolongation, no ST or T-wave changes noted. EKG compared to 10/09/2021 showing no changes. Overall, this EKG is unremarkable. Cardiac catheterization report reviewed from 10/19/2021 showing no evidence of obstructive disease. Medical Decision Making - Medical Decision Making Was pt. sent in by a medical professional or institution (, PA, MISSING PERSONS INVESTIGATOR, urgent care, hospital, or retirement...) When possible be specific @ -No Did you speak to anyone other than the patient for history (EMS, parent, family, police, friend...)? What history was obtained from this source @ -No Did you review nursing and triage notes (agree or disagree)? Why? @ -I reviewed and agree with nursing and triage notes Were old charts reviewed (outside hosp., previous admission, EMS record, old EKG, old radiological studies, urgent care reports/EKG's, retirement records)? Report findings @ -No old charts were reviewed Differential Diagnosis (chest pain, altered mental status, abdominal pain women, abdominal pain men, vaginal bleeding, musculoskeletal, weakness, fever, dyspnea, syncope, headache, dizziness, GI bleed, back pain, seizure, CVA, palpatations, mental health)? @ -Differential Weakness: Hypoglycemia, shock, sepsis, hyponatremia, anemia, infection, UT, ETOH, adverse medicine reaction, overdose, stroke, this is not meant to be an all-inclusive list. EKG interpreted by me (3pts min.). @ -See above X-rays interpreted by me (1pt min.). @ -Chest x-ray shows no acute processes CT interpreted by me (1pt min.). @ -CT angiography of the chest shows multilobar infiltrates. CT brain shows no acute processes. U/S interpreted by me (1pt. min.). @ -None done What testing was considered but not performed or refused? (CT, X-rays, U/S, labs)? Why? @ -None What meds were considered but not given or refused? Why? @ -None Did you discuss the management of the patient with other professionals (professionals i.e. , PA, MISSING PERSONS INVESTIGATOR, lab, RT, psych nurse, social studies department chair, shop laborer, teacher, community cultural development officer, renal case manager)? Give summary @ -Discussed with hospitalist for admission Was smoking cessation discussed for >3mins.? @ -No Was critical care preformed (if so, how long)? @ -No Were there social determinants of health that impacted care today? How? (Homelessness, low income, unemployed, alcoholism, drug addiction, transportation, low edu. Level, literacy, decrease access to med. care, mcc, re hab)? @ -No Was there de-escalation of care discussed even if they declined (Discuss DNR or withdrawal of care, Hospice)? DNR status @ -No What co-morbidities impacted this encounter? (DM, HTN, Smoking, COPD, CAD, Cancer, CVA, ARF, Chemo, Hep., AIDS, mental health diagnosis, sleep apnea, morbid obesity)? @ -None Was patient admitted / discharged? Hospital course, mention meds given and route, prescriptions, significant lab abnormalities, going to OR and other pertinent info. @ -82-year-old female multiple comorbidities presents emergency department for generalized weakness. Patient hypoxic and tachycardic at the bedside she did have recent travel and according to [facility] she has history of cancer. There is concern of pulmonary embolism despite patient not really complaining of respiratory distress. Laboratory evaluation obtained. Mild leukocytosis 14.4. D-dimer is 1.29 metabolic panel within acceptable limits. Laboratory testing negative. Imaging studies shows bilateral infiltrates suspicious for pneumonia. Patient treated with antibiotics. Patient reevaluated at bedside at the record. Patient's clinical presentation does not suggest sepsis given she is in no acute distress has normal blood pressures with acceptable lactic acid level. Undiagnosed new problem with uncertain prognosis? @ -No Drug Therapy requiring intensive monitoring for toxicity (Heparin, Nitro, Insulin, Cardizem)? @ -No Were any procedures done? @ -No Diagnosis/symptom? Acute, or Chronic, or Acute on Chronic? Uncomplicated (without systemic symptoms) or Complicated (systemic symptoms)? @ -Pneumonia complicated by generalized weakness Side effects of treatment? @ -No Exacerbation, Progression, or Severe Exacerbation? @ -No Poses a threat to life or bodily function? How? (Chest pain, USA, UT, pneumonia, PE, COPD, DKA, ARF, appy, cholecystitis, CVA, Diverticulitis, Homicidal, Suicidal, threat to staff... and all critical care pts) @ -yes - Lab Data Result diagrams: 04/03/23 12:34 04/03/23 12:34 Lab Results 04/03/23 04/03/23 04/03/23 Range/Units 12:34 12:34 12:34 WBC 14.4 H (3.8-10.6) k/uL RBC 4.07 (3.80-5.40) m/uL Hgb 13.4 (11.4-16.0) gm/dL Hct 39.5 (34.0-46.0) % MCV 97.0 (80.0-100.0) fL MCH 32.8 (25.0-35.0) pg MCHC 33.9 (31.0-37.0) g/dL RDW 12.3 (11.5-15.5) % Plt Count 148 L (150-450) k/uL MPV 8.3 Neutrophils % 89 % Lymphocytes % 4 % Monocytes % 5 % Eosinophils % 0 % Basophils % 0 % Neutrophils # 12.9 H (1.3-7.7) k/uL Lymphocytes # 0.5 L (1.0-4.8) k/uL Monocytes # 0.8 (0-1.0) k/uL Eosinophils # 0.1 (0-0.7) k/uL Basophils # 0.0 (0-0.2) k/uL PT (10.0-12.5) sec INR (<1.2) APTT (22.0-30.0) sec D-Dimer 1.29 H (<0.60) mg/L FEU Sodium 132 L (137-145) mmol/L Potassium 3.4 L (3.5-5.1) mmol/L Chloride 97 L (98-107) mmol/L Carbon Dioxide 23 (22-30) mmol/L Anion Gap 12 mmol/L BUN 19 H (7-17) mg/dL Creatinine 0.77 (0.52-1.04) mg/dL Est GFR (CKD-EPI)AfAm 82 (>60 ml/min/1.73 sqM) Est GFR (CKD-EPI)NonAf 71 (>60 ml/min/1.73 sqM) Glucose 205 H (74-99) mg/dL Plasma Lactic Acid Ernie (0.7-2.0) mmol/L Calcium 8.1 L (8.4-10.2) mg/dL Magnesium 2.1 (1.6-2.3) mg/dL Total Bilirubin 0.9 (0.2-1.3) mg/dL AST 57 H (14-36) U/L ALT 25 (4-34) U/L Alkaline Phosphatase 54 (38-126) U/L Total Protein 6.3 (6.3-8.2) g/dL Albumin 3.5 (3.5-5.0) g/dL Influenza Type A (PCR) (Not Detectd) Influenza Type B (PCR) (Not Detectd) RSV (PCR) (Not Detectd) SARS-CoV-2 (PCR) (Not Detectd) 04/03/23 04/03/23 04/03/23 Range/Units 12:34 12:34 12:57 WBC (3.8-10.6) k/uL RBC (3.80-5.40) m/uL Hgb (11.4-16.0) gm/dL Hct (34.0-46.0) % MCV (80.0-100.0) fL MCH (25.0-35.0) pg MCHC (31.0-37.0) g/dL RDW (11.5-15.5) % Plt Count (150-450) k/uL MPV Neutrophils % % Lymphocytes % % Monocytes % % Eosinophils % % Basophils % % Neutrophils # (1.3-7.7) k/uL Lymphocytes # (1.0-4.8) k/uL Monocytes # (0-1.0) k/uL Eosinophils # (0-0.7) k/uL Basophils # (0-0.2) k/uL PT 10.2 (10.0-12.5) sec INR 0.9 (<1.2) APTT 25.2 (22.0-30.0) sec D-Dimer (<0.60) mg/L FEU Sodium (137-145) mmol/L Potassium (3.5-5.1) mmol/L Chloride (98-107) mmol/L Carbon Dioxide (22-30) mmol/L Anion Gap mmol/L BUN (7-17) mg/dL Creatinine (0.52-1.04) mg/dL Est GFR (CKD-EPI)AfAm (>60 ml/min/1.73 sqM) Est GFR (CKD-EPI)NonAf (>60 ml/min/1.73 sqM) Glucose (74-99) mg/dL Plasma Lactic Acid Ernie 2.5 H* (0.7-2.0) mmol/L Calcium (8.4-10.2) mg/dL Magnesium (1.6-2.3) mg/dL Total Bilirubin (0.2-1.3) mg/dL AST (14-36) U/L ALT (4-34) U/L Alkaline Phosphatase (38-126) U/L Total Protein (6.3-8.2) g/dL Albumin (3.5-5.0) g/dL Influenza Type A (PCR) Not Detected (Not Detectd) Influenza Type B (PCR) Not Detected (Not Detectd) RSV (PCR) Not Detected (Not Detectd) SARS-CoV-2 (PCR) Not Detected (Not Detectd) Disposition Clinical Impression: Pneumonia Disposition: ADMITTED IP TO THIS HOSP Condition: Fair Referrals: Melina James MD [Primary Care Provider] - 1-2 days Decision Time: 15:05
[2023-04-03 13:07] LABS: Basophils % (A) 0 %; Eosinophils # (A) 0.1 k/uL (0-0.7); Eosinophils % (A) 0 %; HCT 39.5 % (34.0-46.0); HGB 13.4 gm/dL (11.4-16.0); Lymphocytes # (A) 0.5 k/uL (1.0-4.8); Lymphocytes % (A) 4 %; MCH 32.8 pg (25.0-35.0); MCHC 33.9 g/dL (31.0-37.0); Mean Platelet Volume 8.3; Monocytes # (A) 0.8 k/uL (0-1.0); Monocytes % (A) 5 %; Neutrophils # (A) 12.9 k/uL (1.3-7.7); Neutrophils % (A) 89 %; Platelet Count 148 k/uL (150-450); RBC 4.07 m/uL (3.80-5.40); RDW 12.3 % (11.5-15.5); WBC 14.4 k/uL (3.8-10.6)
[2023-04-03 13:18] LABS: ALT 25 U/L (4-34); AST 57 U/L (14-36); African American GFR (CKD) 82 (>60 ml/min/1.73 sqM); Albumin 3.5 g/dL (3.5-5.0); Alkaline Phosphatase 54 U/L (38-126); Anion Gap 12 mmol/L; Blood Urea Nitrogen 19 mg/dL (7-17); Calcium 8.1 mg/dL (8.4-10.2); Carbon Dioxide 23 mmol/L (22-30); Chloride 97 mmol/L (98-107); Glucose 205 mg/dL (74-99); Magnesium 2.1 mg/dL (1.6-2.3); Non-African American GFR(CKD) 71 (>60 ml/min/1.73 sqM); Potassium 3.4 mmol/L (3.5-5.1); Sodium 132 mmol/L (137-145); Total Bilirubin 0.9 mg/dL (0.2-1.3); Total Protein 6.3 g/dL (6.3-8.2)
--- NOTE | 2023-04-03 13:30 | XR ---
EXAMINATION TYPE: XR chest 2V DATE OF EXAM: 04/03/2023 COMPARISON: 01/23/2022 HISTORY: Shortness of breath TECHNIQUE: Frontal and lateral views of the chest are obtained. FINDINGS: Scattered senescent parenchymal changes noted. Hyperinflation compatible with COPD. No evidence for infiltrate. No evidence for atelectasis. Heart size is stable. Mediastinal structures are stable and grossly unremarkable. No evidence for hilar prominence. Degenerative changes dorsal spine. IMPRESSION: 1. No evidence for acute pulmonary disease.
--- NOTE | 2023-04-03 14:37 | CT ---
EXAMINATION TYPE: CT angio chest DATE OF EXAM: 04/03/2023 2:24 PM COMPARISON: 10/17/2021 HISTORY: PE CT DLP: 258.7 mGycm Automated exposure control for dose reduction was used. CONTRAST: CTA scan of the thorax is performed without and with IV Contrast, patient injected with 100 ml mL of Isovue 370, pulmonary embolism protocol. . FINDINGS: LUNGS: There is bilateral lower lobe consolidation greater on left. Right hemidiaphragm is elevated. There are subpleural micronodules too small to characterize. There is underlying emphysematous change with biapical pleural thickening, scarring and calcification. Occasionally can be associated with hi s best as related disease. 2 mm micronodule left upper lobe subpleural. MEDIASTINUM: There is heterogeneous and suboptimal enhancement of the pulmonary artery and its branch es limiting the exam. Grossly there is no evidence of central pulmonary embolism. There is particular limitation with regard to the secondary and distal branches of the right pulmonary artery. A pulmona ry embolus in this distribution is not excluded.. The heart is enlarged. There is a trace of pericard ial fluid. There is both hilar and mediastinal pathologic lymphadenopathy. Largest node measuring rocael rt axis of 1.6 cm in the subcarinal region. Stable left cardiophrenic angle lymph node. OTHER: Hypertrophic and degenerative change of the spine. Chronic appearing severe compression fract ure thoracolumbar junction. Small hiatal hernia. IMPRESSION: 1. Limited exam due to heterogeneous enhancement. Grossly no sizable central pulmonary embolism. A ri ght lower lobe pulmonary embolus is not excluded. 2. Bilateral lower lobe infiltrates greater on the left correlate for pneumonia. Additionally there i s pathologic hilar or mediastinal lymphadenopathy. Follow to resolution as underlying neoplastic proc ess not excluded. 3. Subpleural micronodules too small to characterize likely benign. Recommend correlation with the [address] scan chest low dose screening CT according to Fleischner Society guidelines.
[2023-04-03] MEDS ORDERED: AMPICILLIN-SULBACTAM 3 GM in SODIUM CHLORIDE 0.9% 100 ML IVPB STA (14:53)
--- NOTE | 2023-04-03 14:57 | CT ---
EXAMINATION TYPE: CT brain wo con DATE OF EXAM: 04/03/2023 COMPARISON: None HISTORY: Pain post fall CT DLP: 1095.4 mGycm Automated exposure control for dose reduction was used. FINDINGS: Moderate generalized degenerative change. Hypoattenuation within the white matter is most typical of remote microvascular ischemic disease. No midline shift or mass effect. Calcifications in the basal g anglia. Orbits are symmetric. Calvarium intact. Very minimal changes of chronic sinusitis. IMPRESSION: DEGENERATIVE AND REMOTE ISCHEMIC CHANGE WITH NO EVIDENCE OF ACUTE INTRACRANIAL HEMORRHAGE OR MASS EFF ECT.
[2023-04-03 14:59] LABS: INR 0.9 (<1.2); Partial Thromboplastin Time 25.2 sec (22.0-30.0); Prothrombin Time 10.2 sec (10.0-12.5)
[2023-04-03] MEDS ORDERED: NALOXONE 0.4 MG/ML 1 ML VIAL IV PRN (15:01)
[2023-04-03] MEDS ORDERED: ACETAMINOPHEN IV (For NPO) 1,000 MG in EMPTY BAG 1 BAG IVPB STA (15:27)
[2023-04-03] MEDS ORDERED: SODIUM CHLORIDE 0.9% 1,000 ML IV ONE (15:27)
[2023-04-03] MEDS ORDERED: IBUPROFEN IV 400 MG in SODIUM CHLORIDE 0.9% 100 ML IV ONE (15:27)
[2023-04-03] MEDS ORDERED: LEVOFLOXACIN 750MG-D5W PMX 750 MG in DEXTROSE/WATER 1 150ML.BAG IVPB STA (15:27)
[2023-04-03] MEDS: SODIUM CHLORIDE 0.9% 1,000 ML IV SCH (18:05)
[2023-04-04] MEDS ORDERED: POTASSIUM CHLORIDE ER 20 MEQ TAB.ER PO STA (01:34)
[2023-04-04] MEDS ORDERED: ALBUTEROL NEBULIZED 1.25 MG/3 ML INHALATION PRN (01:36)
--- NOTE | 2023-04-04 01:58 | P.CNPUL ---
History of Present Illness Consult date: 04/04/23 Requesting physician: Joseph Canela Reason for consult: pneumonia Chief complaint: Generalized weakness and fatigue History of present illness: I am seeing this patient in consultation today 04/04/2023 in the emergency room, she is being evaluated for pneumonia. Patient is a 82-year-old white female with past medical history significant for high blood pressure, hypothyroidism, remote breast cancer status post lumpectomy and radiation, among other things. She has never smoked. She lives at a long-term facility. She takes medications for dementia. She was brought in to the emergency room yesterday afternoon. Her only complaint is generalized weakness and fatigue. She attributes this to stress. She denies any other symptoms. She denies any fevers or infectious symptoms, however, she had a fever of 103.3F on arrival. She is currently sitting up in bed, on 2 L nasal cannula, in no acute distress. She does not wear oxygen at home. She states that she recently visited [place] for her granddaughter's wedding mid February. She did have a fall and had a brief hospital visit, she hit the back of her head. Brain CT at our facility did not show any acute intracranial abnormality.There are also reports that she was recently treated for UTI, but she denies this. She denies any urinary complaints. She does have a [place] for urinary incontinence. Chest CTA on arrival showed no obvious central pulmonary embolism. There are bilateral lower lobe infiltrates greater on the left concerning for pneumonia. There is also some pathological hilar and mediastinal lymphadenopathy measuring up to 1.6 cm, possibly reactive to above. There are subpleural micronodules, likely benign, but 12 month follow up was recommended. CBC on arrival did show some leukocytosis with a WBC count of 14.4, hemoglobin 13.4, hematocrit 39.5, platelets 148. BMP has a sodium 132, potassium 3.4, chloride 97, serum bicarbonate 23, BUN 19, creatinine 0.77, glucose 205. Lactic acid level was 2.5 and is now down to 1.4. She was negative for influenza, RSV, COVID-19. She is empirically started on Levaquin in the emergency room. No obvious signs of sepsis or hemodynamic compromise. Vital signs are stable. Review of Systems REVIEW OF SYSTEMS: CONSTITUTIONAL: Denies any recent significant weight loss or weight gain. Admits generalized fatigue and malaise EYES: Denies change in vision. EARS, NOSE, MOUTH, THROAT: Denies headaches, denies sore throat. CARDIOVASCULAR: Denies chest pain, palpitations or syncopal episodes. RESPIRATORY: Denies shortness of breath, cough, congestion or hemoptysis. GASTROINTESTINAL: Denies change in appetite, abdominal pain, nausea and vomiting, or diarrhea GENITOURINARY: Denies hematuria, denies infections. MUSKULOSKELETAL: Denies pain, denies swelling. INTEGUMENTARY: Denies rash, denies eczema. NEUROLOGICAL: Denies recent memory loss, no recent seizure activity. PSYCHIATRIC: Denies anxiety, denies depression. HEMATOLOGIC/LYMPHATIC: Denies anemia, denies enlarged lymph node Past Medical History Past Medical History: Cancer, Chest Pain / Angina, Heart Failure, Hypertension, Thyroid Disorder Additional Past Medical History / Comment(s): right breast Cancer 04/2013 with lumpectomy and radiation tx 17 days. bilateral eye cataracts removed with lens implants History of Any Multi-Drug Resistant Organisms: None Reported Past Surgical History: Breast Surgery Additional Past Surgical History / Comment(s): left thumb trigger finger surgery, ganglion cyst x2 left wrist. bilateral toe bunionectomy. Past Anesthesia/Blood Transfusion Reactions: No Reported Reaction Past Psychological History: No Psychological Hx Reported Smoking Status: Never smoker Past Alcohol Use History: Occasional Past Drug Use History: None Reported - Past Family History Father Family Medical History: Congestive Heart Failure (CHF) Additional Family Medical History / Comment(s): of CHF at age 90 Mother Family Medical History: Congestive Heart Failure (CHF), Thyroid Disorder Additional Family Medical History / Comment(s): of chf at age 92 Medications and Allergies Home Medications Medication Instructions Recorded Confirmed Type Levothyroxine Sodium [Euthyrox] 112 mcg PO DAILY@0730 10/17/21 04/03/23 History amLODIPine [Norvasc] 10 mg PO DAILY@0730 10/17/21 04/03/23 History ALPRAZolam [Xanax] 0.25 mg PO BID PRN 04/03/23 04/03/23 History Alendronate Sodium [Fosamax] 35 mg PO MO 04/03/23 04/03/23 History Cefuroxime [Ceftin] 250 mg PO BID@0730,1930 04/03/23 04/03/23 History Famotidine 40 mg PO HS PRN 04/03/23 04/03/23 History Memantine HCl [Namenda] 5 - 10 mg PO DIRECTED 04/03/23 04/03/23 History Metoprolol Succinate (ER) [Toprol 12.5 mg PO HS@2200 04/03/23 04/03/23 History Xl] Sertraline [Zoloft] 25 mg PO DAILY PRN 04/03/23 04/03/23 History Allergies Allergy/AdvReac Type Severity Reaction Status Date / Time No Known Allergies Allergy Verified 04/03/23 15:21 Physical Exam Vitals: Vital Signs Temp Pulse Resp BP Pulse Ox 04/03/23 22:00 98.5 F 96 16 131/63 92 L 04/03/23 18:01 99.0 F 100 20 110/48 2 L 04/03/23 16:54 101.2 F H 04/03/23 15:28 103.3 F H 119 H 20 143/64 90 L 04/03/23 12:25 98.6 F 112 H 18 137/61 93 L Intake and Output 04/03/23 04/03/23 04/04/23 14:59 22:59 06:59 Other: Weight 54.431 kg GENERAL EXAM: Alert, 82-year-old white female appearing stated age , comfortable in no apparent distress. HEAD: Normocephalic and atraumatic. There is a erythemic spot on her head, no laceration or deformity. EYES: Normal reaction of pupils, equal size. NOSE: Clear with pink turbinates. THROAT: No erythema or exudates. NECK: No masses, no JVD. CHEST: No chest wall deformity. LUNGS: Equal air entry with bibasilar inspiratory crackles and dullness. No wheezes or rhonchi.. On 2 L/m nasal cannula. No conversational dyspnea or accessory muscle use at rest.. CVS: S1 and S2 normal with no audible murmur, regular rhythm. No extra heart sounds ABDOMEN: No hepatosplenomegaly, active bowel sounds, no guarding or rigidity. SPINE: No scoliosis or deformity SKIN: No rashes CENTRAL NERVOUS SYSTEM: No focal deficits, tone is normal in all 4 extremities. EXTREMITIES: There is no peripheral edema, clubbing, or cyanosis. Peripheral pulses are intact. Results - Laboratory Findings CBC and BMP: 04/03/23 12:34 04/03/23 12:34 PT/INR, D-dimer PT 10.2 sec (10.0-12.5) 04/03/23 12:57 INR 0.9 (<1.2) 04/03/23 12:57 D-Dimer 1.29 mg/L FEU (<0.60) H 04/03/23 12:34 Abnormal lab findings: Abnormal Labs 04/03/23 04/03/23 04/03/23 12:34 12:34 12:34 WBC 14.4 H Plt Count 148 L Neutrophils # 12.9 H Lymphocytes # 0.5 L D-Dimer 1.29 H Sodium 132 L Potassium 3.4 L Chloride 97 L BUN 19 H Glucose 205 H Plasma Lactic Acid Ernie Calcium 8.1 L AST 57 H 04/03/23 12:34 WBC Plt Count Neutrophils # Lymphocytes # D-Dimer Sodium Potassium Chloride BUN Glucose Plasma Lactic Acid Ernie 2.5 H* Calcium AST - Diagnostic Findings Chest x-ray: image reviewed CT scan - chest: image reviewed Assessment and Plan Assessment: Suspected bilateral community-acquired pneumonia. Chest CTA demonstrates bilateral lower lobe infiltrates, greater on the left, concerning for pneumonia. There are pathological hilar and mediastinal lymphadenopathy, underlying neoplastic process is not entirely excluded. Acute hypoxemic respiratory failure, secondary to above Leukocytosis, secondary to above Acute febrile illness Elevated d-dimer, no obvious central pulmonary embolism on chest CTA Essential hypertension Hypothyroidism Lifelong nonsmoker Plan: Patient's medications, labs, imaging reviewed Continue supplemental oxygen Patient is empirically placed on antibiotics Blood cultures are pending. Negative for influenza, RSV, COVID-19 Check legionella urine antigen Obtain urinalysis, patient was reportedly recently treated for UTI outpatient. We will continue to follow. I have personally seen and examined the patient, performed the documentation and the assessment and plan as written. Number of minutes spent on the visit:20 Time with Patient: Greater than 30
[2023-04-04 08:48] LABS: Appearance,Urine Clear (Clear); Bilirubin,Urine Negative (Negative); Blood,Urine Moderate (Negative); Color,Urine Light Yellow; Glucose,Urine (UA) Negative (Negative); Ketones,Urine Negative (Negative); Leukocyte Esterase,Urine Small (Negative); Nitrite,Urine Positive (Negative); Protein,Urine 1+ (Negative); Specific Gravity,Urine 1.015 (1.001-1.035); Urobilinogen,Urine 0.2 mg/dL (<2.0)
[2023-04-04 08:50] LABS: RBC,Urine 1 /hpf (0-5); WBC,Urine 1 /hpf (0-5)
[2023-04-04] MEDS: AZITHROMYCIN 500 MG in SODIUM CHLORIDE 0.9% 250 ML IVPB SCH (09:21)
[2023-04-04] MEDS ORDERED: SERTRALINE 25 MG TAB PO PRN (10:25)
[2023-04-04] MEDS ORDERED: ALPRAZolam 0.25 MG TAB PO PRN (10:25)
[2023-04-04] MEDS ORDERED: FAMOTIDINE 20 MG TAB PO PRN (10:25)
[2023-04-04] MEDS: amLODIPine 10 MG TAB PO SCH (12:01)
[2023-04-04] MEDS: MEMANTINE 5 MG TAB PO SCH (12:02)
[2023-04-04] MEDS: LEVOTHYROXINE 112 MCG TAB PO SCH (12:02)
--- NOTE | 2023-04-04 14:31 | P.HPIM ---
History of Present Illness H&P Date: 04/04/23 History of present illness; patient is 82-year-old lady with past medical histor y significant for hypertension, hypothyroidism, depression who presented to the ER for evaluation for generalized fatigue. Patient currently a resident of assisted living facility, stated that she has been feeling weak and tired the last few days. Denied any complaint of fevers at the facility. Denied any nausea or vomiting. Denies any chest pain . Patient has been going of shortness of breath on exertion. Denies any palpitations. Denies any orthopnea or PND. Patient recently did visit [place] for family reasons. Patient has been having difficulty ambulating because of weakness. Because of the symptoms, patient brought to the ER. In the ER, patient found to have a fever off 103. Initial lab work done in the ER showed WBC 14.4, hemoglobin 13.4, platelet count 148, d-dimer 1.2,Sodium 132, potassium 3.4 the year 19, creatinine 0.77, lactate 2.5, AST 57, AST 25 UA positive for nitrites, moderate amount of blood. EKG done in the ER showed heart rate of , no ST segment elevation or depression seen, no T-wave inversions seen. Chest x-ray done in the ER showed no evidence of acute pulmonary disease CTA chest done showed no evidence of PE, bilateral lower lobe infiltrates seen, Patient admitted to internal medicine service REVIEW OF SYSTEMS: CONSTITUTIONAL: As mentioned above HEENT: No recent visual problems or hearing problems. Denied any sore throat. CARDIOVASCULAR: No chest pain, orthopnea, PND, no palpitations, no syncope. PULMONARY: As mentioned in HPI GASTROINTESTINAL: No diarrhea, no nausea, no vomiting, no abdominal pain. NEUROLOGICAL: No headaches, no weakness, no numbness. HEMATOLOGICAL: Denies any bleeding or petechiae. GENITOURINARY: Denies any burning micturition, frequency, or urgency. MUSCULOSKELETAL/RHEUMATOLOGICAL: Denies any joint pain, swelling, or any muscle pain. ENDOCRINE: Denies any polyuria or polydipsia. The rest of the 14-point review of systems is negative. PHYSICAL EXAMINATION: GENERAL: The patient is alert and oriented x3, not in any acute distress. Well developed, well nourished. HEENT: Pupils are round and equally reacting to light. EOMI. No scleral icterus. No conjunctival pallor. Normocephalic, atraumatic. No pharyngeal erythema. No thyromegaly. CARDIOVASCULAR: S1 and S2 present. No murmurs, rubs, or gallops. PULMONARY: Chest is clear to auscultation, no wheezing or crackles. ABDOMEN: Soft, nontender, nondistended, normoactive bowel sounds. No palpable organomegaly. MUSCULOSKELETAL: No joint swelling or deformity. EXTREMITIES: No cyanosis, clubbing, or pedal edema. NEUROLOGICAL: Gross neurological examination did not reveal any focal deficits. SKIN: No rashes. Assessment and plan Bacterial pneumonia Acute hypoxemic respiratory failure Hyponatremia Hypokalemia Lactic acidosis Hypothyroidism Hypertension Depression Monitor vital signs Monitor CBC Monitor CMP Continue telemetry monitoring Follow-up on blood cultures Ordered Legionella urine antigen Continue breathing treatments Continue IV Rocephin and azithromycin Resume home meds Consult pulmonary Labs and medication were reviewed.. Continue same treatment. Continue with symptomatic treatment. Resume home medication. Monitor labs and vitals. DVT and GI prophylaxis. Further recommendations as per clinical course of the patient Dictation was produced using [employer] dictation software. please excuse any grammatical, word or spelling errors. Past Medical History Past Medical History: Cancer, Chest Pain / Angina, Heart Failure, Hypertension, Thyroid Disorder Additional Past Medical History / Comment(s): right breast Cancer 04/2013 with lumpectomy and radiation tx 17 days. bilateral eye cataracts removed with lens implants History of Any Multi-Drug Resistant Organisms: None Reported Past Surgical History: Breast Surgery Additional Past Surgical History / Comment(s): left thumb trigger finger surgery, ganglion cyst x2 left wrist. bilateral toe bunionectomy. Past Anesthesia/Blood Transfusion Reactions: No Reported Reaction Past Psychological History: No Psychological Hx Reported Smoking Status: Never smoker Past Alcohol Use History: Occasional Past Drug Use History: None Reported - Past Family History Father Family Medical History: Congestive Heart Failure (CHF) Additional Family Medical History / Comment(s): of CHF at age 90 Mother Family Medical History: Congestive Heart Failure (CHF), Thyroid Disorder Additional Family Medical History / Comment(s): of chf at age 92 Medications and Allergies Home Medications Medication Instructions Recorded Confirmed Type Levothyroxine Sodium [Euthyrox] 112 mcg PO DAILY@0730 10/17/21 04/03/23 History amLODIPine [Norvasc] 10 mg PO DAILY@72910/17/2123 History ALPRAZolam [Xanax] 0.25 mg PO BID PRN 04/03/23 04/03/23 History Alendronate Sodium [Fosamax] 35 mg PO MO 04/03/23 04/03/23 History Cefuroxime [Ceftin] 250 mg PO BID@0730,1930 04/03/23 04/03/23 History Famotidine 40 mg PO HS PRN 04/03/23 04/03/23 History Memantine HCl [Namenda] 5 - 10 mg PO DIRECTED 04/03/23 04/03/23 History Metoprolol Succinate (ER) [Toprol 12.5 mg PO HS@2200 04/03/23 04/03/23 History Xl] Sertraline [Zoloft] 25 mg PO DAILY PRN 04/03/23 04/03/23 History Allergies Allergy/AdvReac Type Severity Reaction Status Date / Time No Known Allergies Allergy Verified 04/03/23 15:21 Physical Exam Vitals: Vital Signs Temp Pulse Resp BP Pulse Ox 04/04/23 08:18 99.4 F 04/04/23 08:15 98.5 F 102 H 18 135/59 93 L 04/04/23 08:02 93 L 04/04/23 06:00 139/59 94 L 04/04/23 05:00 132/56 94 L 04/04/23 04:00 140/65 94 L 04/04/23 03:00 135/65 93 L 04/04/23 02:00 113/77 94 L 04/04/23 01:45 113/77 94 L 04/03/23 22:00 98.5 F 96 16 131/63 92 L 04/03/23 18:01 99.0 F 100 20 110/48 2 L 04/03/23 16:54 101.2 F H 04/03/23 15:28 103.3 F H 119 H 20 143/64 90 L 04/03/23 12:25 98.6 F 112 H 18 137/61 93 L Results CBC & Chem 7: 04/03/23 12:34 04/03/23 12:34 Labs: Abnormal Lab Results - Last 24 Hours (Table) 04/03/23 04/03/23 04/03/23 Range/Units 12:34 12:34 12:34 WBC 14.4 H (3.8-10.6) k/uL Plt Count 148 L (150-450) k/uL Neutrophils # 12.9 H (1.3-7.7) k/uL Lymphocytes # 0.5 L (1.0-4.8) k/uL D-Dimer 1.29 H (<0.60) mg/L FEU Sodium 132 L (137-145) mmol/L Potassium 3.4 L (3.5-5.1) mmol/L Chloride 97 L (98-107) mmol/L BUN 19 H (7-17) mg/dL Glucose 205 H (74-99) mg/dL Plasma Lactic Acid Ernie (0.7-2.0) mmol/L Calcium 8.1 L (8.4-10.2) mg/dL AST 57 H (14-36) U/L Urine Protein (Negative) Urine Blood (Negative) Urine Nitrite (Negative) Ur Leukocyte Esterase (Negative) 04/03/23 04/04/23 Range/Units 12:34 08:20 WBC (3.8-10.6) k/uL Plt Count (150-450) k/uL Neutrophils # (1.3-7.7) k/uL Lymphocytes # (1.0-4.8) k/uL D-Dimer (<0.60) mg/L FEU Sodium (137-145) mmol/L Potassium (3.5-5.1) mmol/L Chloride (98-107) mmol/L BUN (7-17) mg/dL Glucose (74-99) mg/dL Plasma Lactic Acid Ernie 2.5 H* (0.7-2.0) mmol/L Calcium (8.4-10.2) mg/dL AST (14-36) U/L Urine Protein 1+ H (Negative) Urine Blood Moderate H (Negative) Urine Nitrite Positive H (Negative) Ur Leukocyte Esterase Small H (Negative)
[2023-04-04] MEDS: ACETAMINOPHEN TAB 325 MG TAB PO PRN (15:52)
[2023-04-04] MEDS ORDERED: LEVOFLOXACIN 750MG-D5W PMX 750 MG in DEXTROSE/WATER 1 150ML.BAG IVPB SCH (17:00)
[2023-04-04] MEDS: SODIUM CHLORIDE 0.9% 1,000 ML IV SCH (20:21)
[2023-04-04] MEDS: METOPROLOL SUCCINATE (ER) 25 MG TAB.ER.24H PO SCH (21:27)
[2023-04-05] MEDS: ACETAMINOPHEN TAB 325 MG TAB PO PRN (01:52)
[2023-04-05] MEDS: LEVOTHYROXINE 112 MCG TAB PO SCH (06:29)
[2023-04-05] MEDS: amLODIPine 10 MG TAB PO SCH (06:29)
[2023-04-05] MEDS ORDERED: amLODIPine 10 MG TAB PO SCH (07:30)
[2023-04-05] MEDS ORDERED: LEVOTHYROXINE 112 MCG TAB PO SCH (07:30)
[2023-04-05] MEDS: MEMANTINE 5 MG TAB PO SCH (07:45)
[2023-04-05] MEDS: AZITHROMYCIN 500 MG in SODIUM CHLORIDE 0.9% 250 ML IVPB SCH (07:46)
[2023-04-05 08:49] LABS: HCT 35.9 % (37.2-46.3); HGB 12.3 g/dL (12.0-15.0); MCH 32.6 pg (27.0-32.0); MCHC 34.3 g/dL (32.0-37.0); MCV 95.2 FL (80.0-97.0); Mean Platelet Volume 10.3 FL (9.5-12.2); NRBC Per 100 WBC 0 X 10*3/uL (0.00-0.01); Platelet Count 177 X 10*3/uL (140-440); RBC 3.77 X 10*6/uL (4.10-5.20); RDW 12.6 % (11.5-14.5); WBC 9.04 X 10*3/uL (4.50-10.00)
[2023-04-05 09:06] LABS: ALT 51 U/L (8-44); AST 73 U/L (13-35); Albumin 3.1 g/dL (3.8-4.9); Albumin/Globulin Ratio 1.41 Ratio (1.60-3.17); Alkaline Phosphatase 61 U/L (41-126); BUN/Creat Ratio 13.33 Ratio (12.00-20.00); Calcium 8.2 mg/dL (8.7-10.3); Carbon Dioxide 25.4 mmol/L (21.6-31.8); Chloride 106 mmol/L (96-109); Globulin 2.2 g/dL (1.6-3.3); Glucose 129 mg/dL (70-110); Potassium 3.5 mmol/L (3.5-5.5); Sodium 142 mmol/L (135-145); Total Bilirubin 0.3 mg/dL (0.3-1.2); Total Protein 5.3 g/dL (6.2-8.2)
--- NOTE | 2023-04-05 12:03 | CDI ---
Documentation Clarification Form Date: 04/05/2023 11:32:04 AM From: Sarah Silva RN, CCDS [id number] [phone] Admit Date: 04/03/2023 03:02:00 PM Patient Name: Ruby Taveras Visit Number: [id number] Discharge Date: ATTENTION: The Clinical Documentation Specialists (CDI) and [facility] Coding Staff appreciate your assistance in clarifying documentation. Please respond to the clarification below the line at the bottom and electronically sign. The CDI & [facility] Coding staff will review the response and follow-up if needed. Please note: Queries are made part of the Legal Health Record. If you have any questions, please contact the author of this message via ITS. Dr. Jorge Braun The patient present with Temp 103.3 Pulse 119, WBC 14.4, and diagnosed with bacterial pneumonia. Based on this information and the findings below, is there an additional diagnosis that is clinically appropriate for this patient? History/Risk Factors: Cancer, Chest Pain / Angina, Heart Failure, Hypertension, Thyroid Disorder Clinical Indicators: 82-year-old female presents for generalized weakness, EKG interpretation: Ventricular rate of 90, sinus tachycardia. CT angiography of the chest shows multilobar infiltrates. CT brain shows no acute processes. WBC 14.4, Neutrophils 12.9 Lactic acid: 1.4 Procalcitonin 0.51 UA: Urine Nitrite-Positive Urine Leukocyte Esterase Small Blood cultures: Pending Vitals signs: 143/64 119 20 103.3 90% RA, 101.2, Treatment: cardiac monitor technician/Telemetry Unasyn 3 GM IVPB Once 04/03 Azithromycin 500 MG IVPB Daily 04/04-04/05 Rocephin 2 GM IVPB04/04-04/05 Levofloxacin 750 MG IVPB Q 24 HRS 04/03-04/04 .9 NS 1,000 ML Bolus 04/03 Is there an additional diagnosis that is clinically appropriate for this patient? [ x ] Sepsis, present on admission [ ] Sepsis ruled out [ ] Other, please specify [ ] Unable to determine SIRS Criteria: 2 or more of the following may indicate SIRS Temperature < 96.8F (36C) or > 101.0F (38.3C) Heart Rate > 90 bpm Respiratory Rate > 20 breaths/min or PaCO2 < 32 mmHg White Blood Cell Count > 12,000 or < 4,000 cells/mm3 or > 10% bands (Template Last Reviewed: April 2022) MTDD
--- NOTE | 2023-04-05 12:15 | P.PN ---
Subjective Progress Note Date: 04/05/23 patient is 82-year-old lady with past medical history significant for hypertension, hypothyroidism, depression who presented to the ER for evaluation for generalized fatigue. Patient currently a resident of assisted living facility, stated that she has been feeling weak and tired the last few days. Denied any complaint of fevers at the facility. Denied any nausea or vomiting. Denies any chest pain . Patient has been going of shortness of breath on exertion. Denies any palpitations. Denies any orthopnea or PND. Patient recently did visit [place] for family reasons. Patient has been having difficulty ambulating because of weakness. Because of the symptoms, patient brought to the ER. In the ER, patient found to have a fever off 103. Initial lab work done in the ER showed WBC 14.4, hemoglobin 13.4, platelet count 148, d-dimer 1.2,Sodium 132, potassium 3.4 the year 19, creatinine 0.77, lactate 2.5, AST 57, AST 25 UA positive for nitrites, moderate amount of blood. EKG done in the ER showed heart rate of , no ST segment elevation or depression seen, no T-wave inversions seen. Chest x-ray done in the ER showed no evidence of acute pulmonary disease CTA chest done showed no evidence of PE, bilateral lower lobe infiltrates seen, Patient admitted to internal medicine service 04/05. Patient seen and examined. Lab work done this morning showed WBC 9.04, hemoglobin 12.3, sodium 142, potassium 3.5, BUNs 8, creatinine 0.6. Urine Legionella negative. States weakness has improved, patient working with PT and OT today REVIEW OF SYSTEMS: CONSTITUTIONAL: No fever, no malaise,. CARDIOVASCULAR: No chest pain, no palpitations, no syncope. PULMONARY: No shortness of breath, no cough, GASTROINTESTINAL: No diarrhea, no nausea, no vomiting, no abdominal pain. NEUROLOGICAL: No headaches, no weakness, PHYSICAL EXAMINATION: GENERAL: The patient is alert and oriented x3, not in any acute distress. Well developed, well nourished. HEENT: Pupils are round and equally reacting to light. EOMI. No scleral icterus. No conjunctival pallor. Normocephalic, atraumatic. No pharyngeal erythema. No thyromegaly. CARDIOVASCULAR: S1 and S2 present. No murmurs, rubs, or gallops. PULMONARY: Chest is clear to auscultation, no wheezing or crackles. ABDOMEN: Soft, nontender, nondistended, normoactive bowel sounds. No palpable organomegaly. MUSCULOSKELETAL: No joint swelling or deformity. EXTREMITIES: No cyanosis, clubbing, or pedal edema. NEUROLOGICAL: Gross neurological examination did not reveal any focal deficits. SKIN: No rashes. Assessment and plan Bacterial pneumonia Sepsis present on admission Acute hypoxemic respiratory failure Hyponatremia Hypokalemia Lactic acidosis Hypothyroidism Hypertension Depression Monitor vital signs Monitor CBC Monitor CMP Continue telemetry monitoring Follow-up on blood cultures Legionella urine antigen was negative Continue breathing treatments Continue IV Rocephin and azithromycin Pulmonology following In regards to hypertension continue Norvasc and metoprolol In regards to hypothyroid continue Synthyroid PT and OT ordered Labs and medication were reviewed.. Continue same treatment. Continue with symptomatic treatment. Resume home medication. Monitor labs and vitals. DVT and GI prophylaxis. Further recommendations as per clinical course of the patient Dictation was produced using [employer] dictation software. please excuse any grammatical, word or spelling errors. Objective - Vital Signs Vital signs: Vital Signs Temp 98.3 F 04/05/23 07:20 Pulse 81 04/05/23 07:20 Resp 22 04/05/23 07:20 BP 124/70 04/05/23 07:20 Pulse Ox 93 L 04/05/23 07:20 FiO2 Intake & Output 04/04/23 04/05/23 04/05/23 18:59 06:59 18:59 Output Total 390 Balance -390 Weight 54.431 kg Output: Chest Tube Drainage 90 Right 90 Urine 300 Other: Voiding Method External Catheter External Catheter # Voids 1 - Labs CBC & Chem 7: 04/05/23 05:33 04/05/23 05:33 Labs: Abnormal Lab Results - Last 24 Hours (Table) 04/05/23 04/05/23 Range/Units 05:33 05:33 RBC 3.77 L (4.10-5.20) X 10*6/uL Hct 35.9 L (37.2-46.3) % MCH 32.6 H (27.0-32.0) pg BUN 8.0 L (9.0-27.0) mg/dL Glucose 129 H (70-110) mg/dL Calcium 8.2 L (8.7-10.3) mg/dL AST 73 H (13-35) U/L ALT 51 H (8-44) U/L Total Protein 5.3 L (6.2-8.2) g/dL Albumin 3.1 L (3.8-4.9) g/dL Albumin/Globulin Ratio 1.41 L (1.60-3.17) Ratio Microbiology - Last 24 Hours (Table) 04/03/23 15:38 Blood Culture - Preliminary Blood 04/03/23 15:45 Blood Culture - Preliminary Blood
--- NOTE | 2023-04-05 13:17 | P.PN ---
Subjective Progress Note Date: 04/05/23 I am seeing this patient in consultation today 04/04/2023 in the emergency room, she is being evaluated for pneumonia. Patient is a 82-year-old white female with past medical history significant for high blood pressure, hypothyroidism, remote breast cancer status post lumpectomy and radiation, among other things. She has never smoked. She lives at [place] [facility]. She takes medications for dementia. She was brought in to the emergency room yesterday afternoon. Her only complaint is generalized weakness and fatigue. She attributes this to stress. She denies any other symptoms. She denies any fevers or infectious symptoms, however, she had a fever of 103.3F on arrival. She is currently sitting up in bed, on 2 L nasal cannula, in no acute distress. She does not wear oxygen at home. She states that she recently visited [place] for her granddaughter's wedding mid February. She did have a fall and had a brief hospital visit, she hit the back of her head. Brain CT at our facility did not show any acute intracranial abnormality.There are also reports that she was recently treated for UTI, but she denies this. She denies any urinary complaints. She does have a [place] for urinary incontinence. Chest CTA on arrival showed no obvious central pulmonary embolism. There are bilateral lower lobe infiltrates greater on the left concerning for pneumonia. There is also some pathological hilar and mediastinal lymphadenopathy measuring up to 1.6 cm, possibly reactive to above. There are subpleural micronodules, likely benign, but 12 month follow up was recommended. CBC on arrival did show some leukocytosis with a WBC count of 14.4, hemoglobin 13.4, hematocrit 39.5, platelets 148. BMP has a sodium 132, potassium 3.4, chloride 97, serum bicarbonate 23, BUN 19, creatinine 0.77, glucose 205. Lactic acid level was 2.5 and is now down to 1.4. She was negative for influenza, RSV, COVID-19. She is empirically started on Levaquin in the emergency room. No obvious signs of sepsis or hemodynamic compromise. Vital signs are stable. The patient is seen today 04/05/2023 in follow-up [facility] medical floor. She is awake and alert in no acute distress. She is doing a bit better today compared to yesterday. She is maintaining good O2 saturations in the 90s on 3 L/m per na nubai cannula. She is continued on ceftriaxone and azithromycin. Blood cultures reveal no growth. White count 9.0. Hemoglobin 12.3. Platelets 177. Sodium 142. Potassium 4.5. Bicarb 25. BUN 8. Creatinine 0.6. Glucose 129. Pro- calcitonin 0.51. Urine with moderate blood positive nitrates and small leukoesterase. She did have a T-max of 100.9 early this morning. Currently afebrile. Hemodynamically stable. Objective - Vital Signs Vital signs: Vital Signs Temp 98.3 F 04/05/23 07:20 Pulse 81 04/05/23 07:20 Resp 22 04/05/23 07:20 BP 124/70 04/05/23 07:20 Pulse Ox 93 L 04/05/23 07:20 FiO2 Intake & Output 04/04/23 04/05/23 04/05/23 18:59 06:59 18:59 Output Total 390 Balance -390 Weight 54.431 kg Output: Chest Tube Drainage 90 Right 90 Urine 300 Other: Voiding Method External Catheter External Catheter # Voids 1 - Exam GENERAL EXAM: Alert, pleasant 82-year-old female, resting in bed, on 3 L nasal cannula, comfortable in no apparent distress. HEAD: Normocephalic and atraumatic. There is a erythemic spot on her head, no laceration or deformity. EYES: Normal reaction of pupils, equal size. NOSE: Clear with pink turbinates. THROAT: No erythema or exudates. NECK: No masses, no JVD. CHEST: No chest wall deformity. LUNGS: Equal air entry with bibasilar inspiratory crackles and dullness. No wheezes or rhonchi. No conversational dyspnea. CVS: S1 and S2 normal with no audible murmur, regular rhythm. No extra heart sounds ABDOMEN: No hepatosplenomegaly, active bowel sounds, no guarding or rigidity. SPINE: No scoliosis or deformity SKIN: No rashes CENTRAL NERVOUS SYSTEM: No focal deficits, tone is normal in all 4 extremities. EXTREMITIES: There is no peripheral edema, clubbing, or cyanosis. Peripheral pulses are intact. - Labs CBC & Chem 7: 04/05/23 05:33 04/05/23 05:33 Labs: Abnormal Lab Results - Last 24 Hours (Table) 04/05/23 04/05/23 04/05/23 Range/Units 05:33 05:33 05:33 RBC 3.77 L (4.10-5.20) X 10*6/uL Hct 35.9 L (37.2-46.3) % MCH 32.6 H (27.0-32.0) pg BUN 8.0 L (9.0-27.0) mg/dL Glucose 129 H (70-110) mg/dL Calcium 8.2 L (8.7-10.3) mg/dL AST 73 H (13-35) U/L ALT 51 H (8-44) U/L Total Protein 5.3 L (6.2-8.2) g/dL Albumin 3.1 L (3.8-4.9) g/dL Albumin/Globulin Ratio 1.41 L (1.60-3.17) Ratio Procalcitonin 0.51 H (0.02-0.09) ng/mL Microbiology - Last 24 Hours (Table) 04/03/23 15:38 Blood Culture - Preliminary Blood 04/03/23 15:45 Blood Culture - Preliminary Blood Assessment and Plan Assessment: Suspected bilateral community-acquired pneumonia. Chest CTA demonstrates bilateral lower lobe infiltrates, greater on the left, concerning for pneumonia. There are pathological hilar and mediastinal lymphadenopathy, underlying neoplastic process is not entirely excluded Acute hypoxemic respiratory failure, secondary to above Leukocytosis, secondary to above Acute febrile illness Urinary tract infection suspected Elevated d-dimer, no obvious central pulmonary embolism on chest CTA Essential hypertension Hypothyroidism Lifelong nonsmoker Plan: The patient was seen and evaluated Medication and labs reviewed Continue ceftriaxone and azithromycin Titrate down the FiO2 as tolerated Increase her activity as tolerated We will continue to follow I have personally seen and examined the patient, performed the documentation and the assessment and plan as written. Number of minutes spent on the visit: 10.
[2023-04-05] MEDS: SODIUM CHLORIDE 0.9% 1,000 ML IV SCH (17:04)
[2023-04-05] MEDS: METOPROLOL SUCCINATE (ER) 25 MG TAB.ER.24H PO SCH (21:50)
[2023-04-06] MEDS: amLODIPine 10 MG TAB PO SCH (06:41)
[2023-04-06] MEDS: LEVOTHYROXINE 112 MCG TAB PO SCH (06:41)
[2023-04-06] MEDS: MEMANTINE 5 MG TAB PO SCH (07:53)
[2023-04-06] MEDS: AZITHROMYCIN 500 MG in SODIUM CHLORIDE 0.9% 250 ML IVPB SCH (07:54)
--- NOTE | 2023-04-06 11:59 | P.PN ---
Subjective Progress Note Date: 04/06/23 I am seeing this patient in consultation today 04/04/2023 in the emergency room, she is being evaluated for pneumonia. Patient is a 82-year-old white female with past medical history significant for high blood pressure, hypothyroidism, remote breast cancer status post lumpectomy and radiation, among other things. She has never smoked. She lives at a alf facility. She takes medications for dementia. She was brought in to the emergency room yesterday afternoon. Her only complaint is generalized weakness and fatigue. She attributes this to stress. She denies any other symptoms. She denies any fevers or infectious symptoms, however, she had a fever of 103.3F on arrival. She is currently sitting up in bed, on 2 L nasal cannula, in no acute distress. She does not wear oxygen at home. She states that she recently visited [place] for her granddaughter's wedding mid February. She did have a fall and had a brief hospital visit, she hit the back of her head. Brain CT at our facility did not show any acute intracranial abnormality.There are also reports that she was recently treated for UTI, but she denies this. She denies any urinary complaints. She does have a Purwick for urinary incontinence. Chest CTA on arrival showed no obvious central pulmonary embolism. There are bilateral lower lobe infiltrates greater on the left concerning for pneumonia. There is also some pathological hilar and mediastinal lymphadenopathy measuring up to 1.6 cm, possibly reactive to above. There are subpleural micronodules, likely benign, but 12 month follow up was recommended. CBC on arrival did show some leukocytosis with a WBC count of 14.4, hemoglobin 13.4, hematocrit 39.5, platelets 148. BMP has a sodium 132, potassium 3.4, chloride 97, serum bicarbonate 23, BUN 19, creatinine 0.77, glucose 205. Lactic acid level was 2.5 and is now down to 1.4. She was negative for influenza, RSV, COVID-19. She is empirically started on Levaquin in the emergency room. No obvious signs of sepsis or hemodynamic compromise. Vital signs are stable. The patient is seen today 04/05/2023 in follow-up [facility] medical floor. She is awake and alert in no acute distress. She is doing a bit better today compared to yesterday. She is maintaining good O2 saturations in the 90s on 3 L/m per na nubia cannula. She is continued on ceftriaxone and azithromycin. Blood cultures reveal no growth. White count 9.0. Hemoglobin 12.3. Platelets 177. Sodium 142. Potassium 4.5. Bicarb 25. BUN 8. Creatinine 0.6. Glucose 129. Pro- calcitonin 0.51. Urine with moderate blood positive nitrates and small leukoesterase. She did have a T-max of 100.9 early this morning. Currently afebrile. Hemodynamically stable. The patient is seen today 04/06/2023 in follow-up on the regular medical floor. She is currently sitting up in bed. Awake and alert in no acute distress. Denies any worsening shortness of breath, cough or congestion. She is maintaining good O2 saturations in the 90s on 2 L/m per nasal cannula. She's been afebrile. Hemodynamically stable. Blood cultures revealed no growth. No new labs today. She is continued on ceftriaxone and azithromycin. Objective - Vital Signs Vital signs: Vital Signs Temp 98.0 F 04/06/23 07:04 Pulse 89 04/06/23 07:54 Resp 18 04/06/23 07:54 BP 119/65 04/06/23 07:04 Pulse Ox 91 L 04/06/23 07:04 FiO2 Intake & Output 04/05/23 04/06/23 04/06/23 18:59 06:59 18:59 Output Total 1100 1050 Balance -1100 -1050 Output: Urine 1100 1050 Other: Voiding Method External Catheter External Catheter # Voids 2 - Exam GENERAL EXAM: Alert, 82-year-old female, on 2 L nasal cannula, in no apparent distress. HEAD: Normocephalic and atraumatic. There is a erythemic spot on her head, no laceration or deformity. EYES: Normal reaction of pupils, equal size. NOSE: Clear with pink turbinates. THROAT: No erythema or exudates. NECK: No masses, no JVD. CHEST: No chest wall deformity. LUNGS: Equal air entry with bibasilar inspiratory crackles and dullness. No wheezes or rhonchi. CVS: S1 and S2 normal with no audible murmur, regular rhythm. No extra heart sounds ABDOMEN: No hepatosplenomegaly, active bowel sounds, no guarding or rigidity. SPINE: No scoliosis or deformity SKIN: No rashes CENTRAL NERVOUS SYSTEM: No focal deficits, tone is normal in all 4 extremities. EXTREMITIES: There is no peripheral edema, clubbing, or cyanosis. Peripheral pulses are intact. - Labs CBC & Chem 7: 04/05/23 05:33 04/05/23 05:33 Labs: Microbiology - Last 24 Hours (Table) 04/03/23 15:38 Blood Culture - Preliminary Blood 04/03/23 15:45 Blood Culture - Preliminary Blood Assessment and Plan Assessment: Suspected bilateral community-acquired pneumonia. Chest CTA demonstrates bilateral lower lobe infiltrates, greater on the left, concerning for pneumonia. There are pathological hilar and mediastinal lymphadenopathy, underlying neoplastic process is not entirely excluded Acute hypoxemic respiratory failure, secondary to above Leukocytosis, secondary to above, recovered Acute febrile illness, recovered Urinary tract infection suspected Elevated d-dimer, no obvious central pulmonary embolism on chest CTA Essential hypertension Hypothyroidism Lifelong nonsmoker Plan: The patient was seen and evaluated Medication reviewed Improved but not quite back to her baseline Continue ceftriaxone and azithromycin Titrate down the FiO2 as tolerated Increase her activity as tolerated We will continue to follow I have personally seen and examined the patient, performed the documentation and the assessment and plan as written. Number of minutes spent on the visit: 10.
--- NOTE | 2023-04-06 13:30 | P.PN ---
Subjective Progress Note Date: 04/06/23 patient is 82-year-old lady with past medical history significant for hypertension, hypothyroidism, depression who presented to the ER for evaluation for generalized fatigue. Patient currently a resident of assisted living facility, stated that she has been feeling weak and tired the last few days. Denied any complaint of fevers at the facility. Denied any nausea or vomiting. Denies any chest pain . Patient has been going of shortness of breath on exertion. Denies any palpitations. Denies any orthopnea or PND. Patient recently did visit [place] for family reasons. Patient has been having difficulty ambulating because of weakness. Because of the symptoms, patient brought to the ER. In the ER, patient found to have a fever off 103. Initial lab work done in the ER showed WBC 14.4, hemoglobin 13.4, platelet count 148, d-dimer 1.2,Sodium 132, potassium 3.4 the year 19, creatinine 0.77, lactate 2.5, AST 57, AST 25 UA positive for nitrites, moderate amount of blood. EKG done in the ER showed heart rate of , no ST segment elevation or depression seen, no T-wave inversions seen. Chest x-ray done in the ER showed no evidence of acute pulmonary disease CTA chest done showed no evidence of PE, bilateral lower lobe infiltrates seen, Patient admitted to internal medicine service 04/05. Patient seen and examined. Lab work done this morning showed WBC 9.04, hemoglobin 12.3, sodium 142, potassium 3.5, BUNs 8, creatinine 0.6. Urine Legionella negative. States weakness has improved, patient working with PT and OT today 04/06. Patient seen and examined. Blood work done this morning showed WBC 9.04, hemoglobin is 12.3, sodium 140, potassium 3.5, BUNs is 8, creatinine 0.6, pro-Maxi is 0.51. Denies any shortness of breath at rest. Gets short of breath only on exertion. States weakness is improved. REVIEW OF SYSTEMS: CONSTITUTIONAL: No fever, no malaise,. CARDIOVASCULAR: No chest pain, no palpitations, no syncope. PULMONARY: As mentioned above GASTROINTESTINAL: No diarrhea, no nausea, no vomiting, no abdominal pain. NEUROLOGICAL: No headaches, no weakness, PHYSICAL EXAMINATION: GENERAL: The patient is alert and oriented x3, not in any acute distress. Well developed, well nourished. HEENT: Pupils are round and equally reacting to light. EOMI. No scleral icterus. No conjunctival pallor. Normocephalic, atraumatic. No pharyngeal erythema. No thyromegaly. CARDIOVASCULAR: S1 and S2 present. No murmurs, rubs, or gallops. PULMONARY: Chest is clear to auscultation, no wheezing or crackles. ABDOMEN: Soft, nontender, nondistended, normoactive bowel sounds. No palpable organomegaly. MUSCULOSKELETAL: No joint swelling or deformity. EXTREMITIES: No cyanosis, clubbing, or pedal edema. NEUROLOGICAL: Gross neurological examination did not reveal any focal deficits. SKIN: No rashes. Assessment and plan Bacterial pneumonia Sepsis present on admission Acute hypoxemic respiratory failure Hyponatremia Hypokalemia Lactic acidosis Hypothyroidism Hypertension Depression Monitor vital signs Monitor CBC Monitor CMP Continue telemetry monitoring Follow-up on blood cultures Legionella urine antigen was negative Continue breathing treatments Continue IV Rocephin and azithromycin Pulmonology following In regards to hypertension continue Norvasc and metoprolol In regards to hypothyroid continue Synthyroid PT and OT ordered Labs and medication were reviewed.. Continue same treatment. Continue with symptomatic treatment. Resume home medication. Monitor labs and vitals. DVT and GI prophylaxis. Further recommendations as per clinical course of the patient Dictation was produced using [employer] dictation software. please excuse any grammatical, word or spelling errors. Objective - Vital Signs Vital signs: Vital Signs Temp 98.0 F 04/06/23 07:04 Pulse 89 04/06/23 07:54 Resp 18 04/06/23 07:54 BP 119/65 04/06/23 07:04 Pulse Ox 91 L 04/06/23 07:04 FiO2 Intake & Output 04/05/23 04/06/23 04/06/23 18:59 06:59 18:59 Output Total 1100 1050 Balance -1100 -1050 Output: Urine 1100 1050 Other: Voiding Method External Catheter External Catheter # Voids 2 - Labs CBC & Chem 7: 04/05/23 05:33 04/05/23 05:33 Labs: Abnormal Lab Results - Last 24 Hours (Table) 04/05/23 Range/Units 05:33 Procalcitonin 0.51 H (0.02-0.09) ng/mL Microbiology - Last 24 Hours (Table) 04/03/23 15:38 Blood Culture - Preliminary Blood 04/03/23 15:45 Blood Culture - Preliminary Blood
[2023-04-06] MEDS: SODIUM CHLORIDE 0.9% 1,000 ML IV SCH (19:18)
[2023-04-06] MEDS: METOPROLOL SUCCINATE (ER) 25 MG TAB.ER.24H PO SCH (21:12)
[2023-04-07] MEDS: amLODIPine 10 MG TAB PO SCH (06:54)
[2023-04-07] MEDS: LEVOTHYROXINE 112 MCG TAB PO SCH (06:54)
[2023-04-07] MEDS: MEMANTINE 5 MG TAB PO SCH (07:32)
[2023-04-07 11:46] LABS: HCT 40.6 % (37.2-46.3); HGB 13.5 g/dL (12.0-15.0); MCH 31.9 pg (27.0-32.0); MCHC 33.3 g/dL (32.0-37.0); NRBC Per 100 WBC 0 X 10*3/uL (0.00-0.01); Platelet Count 295 X 10*3/uL (140-440); RBC 4.23 X 10*6/uL (4.10-5.20); RDW 12.8 % (11.5-14.5); WBC 6.27 X 10*3/uL (4.50-10.00)
--- NOTE | 2023-04-07 12:08 | P.PN ---
Subjective Progress Note Date: 04/07/23 I am seeing this patient in consultation today 04/04/2023 in the emergency room, she is being evaluated for pneumonia. Patient is a 82-year-old white female with past medical history significant for high blood pressure, hypothyroidism, remote breast cancer status post lumpectomy and radiation, among other things. She has never smoked. She lives at a [facility] facility. She takes medications for dementia. She was brought in to the emergency room yesterday afternoon. Her only complaint is generalized weakness and fatigue. She attributes this to stress. She denies any other symptoms. She denies any fevers or infectious symptoms, however, she had a fever of 103.3F on arrival. She is currently sitting up in bed, on 2 L nasal cannula, in no acute distress. She does not wear oxygen at home. She states that she recently visited [place] for her granddaughter's wedding mid February. She did have a fall and had a brief hospital visit, she hit the back of her head. Brain CT at our facility did not show any acute intracranial abnormality.There are also reports that she was recently treated for UTI, but she denies this. She denies any urinary complaints. She does have a Purwick for urinary incontinence. Chest CTA on arrival showed no obvious central pulmonary embolism. There are bilateral lower lobe infiltrates greater on the left concerning for pneumonia. There is also some pathological hilar and mediastinal lymphadenopathy measuring up to 1.6 cm, possibly reactive to above. There are subpleural micronodules, likely benign, but 12 month follow up was recommended. CBC on arrival did show some leukocytosis with a WBC count of 14.4, hemoglobin 13.4, hematocrit 39.5, platelets 148. BMP has a sodium 132, potassium 3.4, chloride 97, serum bicarbonate 23, BUN 19, creatinine 0.77, glucose 205. Lactic acid level was 2.5 and is now down to 1.4. She was negative for influenza, RSV, COVID-19. She is empirically started on Levaquin in the emergency room. No obvious signs of sepsis or hemodynamic compromise. Vital signs are stable. The patient is seen today 04/05/2023 in follow-up [facility] medical floor. She is awake and alert in no acute distress. She is doing a bit better today compared to yesterday. She is maintaining good O2 saturations in the 90s on 3 L/m per na nubia cannula. She is continued on ceftriaxone and azithromycin. Blood cultures reveal no growth. White count 9.0. Hemoglobin 12.3. Platelets 177. Sodium 142. Potassium 4.5. Bicarb 25. BUN 8. Creatinine 0.6. Glucose 129. Pro- calcitonin 0.51. Urine with moderate blood positive nitrates and small leukoesterase. She did have a T-max of 100.9 early this morning. Currently afebrile. Hemodynamically stable. The patient is seen today 04/06/2023 in follow-up on the regular medical floor. She is currently sitting up in bed. Awake and alert in no acute distress. Denies any worsening shortness of breath, cough or congestion. She is maintaining good O2 saturations in the 90s on 2 L/m per nasal cannula. She's been afebrile. Hemodynamically stable. Blood cultures revealed no growth. No new labs today. She is continued on ceftriaxone and azithromycin. The patient is seen today 04/07/2023 in follow-up on the regular medical floor. She is resting quite comfortably in bed. Awake and alert in no acute distress. Less cough and congestion. Maintaining O2 saturations in the 90s on 2 L/m per nasal cannula. She's been afebrile. Hemodynamically stable. Blood cultures reveal no growth. White count 6.2. Hemoglobin 13.5. She is continued on ceftriaxone and completed azithromycin. Objective - Vital Signs Vital signs: Vital Signs Temp 98.6 F 04/07/23 07:16 Pulse 80 04/07/23 07:33 Resp 17 04/07/23 07:33 BP 128/72 04/07/23 07:16 Pulse Ox 95 04/07/23 07:16 FiO2 Intake & Output 04/06/23 04/07/23 04/07/23 18:59 06:59 18:59 Output Total 1100 Balance -1100 Output: Urine 1100 Other: Voiding Method External Catheter External Catheter # Voids 3 - Exam GENERAL EXAM: Alert, pleasant 82-year-old female, resting comfortably in bed, on 2 L nasal cannula, in no apparent distress. HEAD: Normocephalic and atraumatic. There is a erythemic spot on her head, no laceration or deformity. EYES: Normal reaction of pupils, equal size. NOSE: Clear with pink turbinates. THROAT: No erythema or exudates. NECK: No masses, no JVD. CHEST: No chest wall deformity. LUNGS: Equal air entry with bibasilar inspiratory crackles and dullness. No wheezes or rhonchi. CVS: S1 and S2 normal with no audible murmur, regular rhythm. No extra heart sounds ABDOMEN: No hepatosplenomegaly, active bowel sounds, no guarding or rigidity. SPINE: No scoliosis or deformity SKIN: No rashes CENTRAL NERVOUS SYSTEM: No focal deficits, tone is normal in all 4 extremities. EXTREMITIES: There is no peripheral edema, clubbing, or cyanosis. Peripheral pulses are intact. - Labs CBC & Chem 7: 04/07/23 06:04 04/05/23 05:33 Labs: Microbiology - Last 24 Hours (Table) 04/03/23 15:38 Blood Culture - Preliminary Blood 04/03/23 15:45 Blood Culture - Preliminary Blood Assessment and Plan Assessment: Suspected bilateral community-acquired pneumonia. Chest CTA demonstrates bilateral lower lobe infiltrates, greater on the left, concerning for pneumonia. There are pathological hilar and mediastinal lymphadenopathy, underlying neoplastic process is not entirely excluded Acute hypoxemic respiratory failure, secondary to above Leukocytosis, secondary to above, recovered Acute febrile illness, recovered Urinary tract infection suspected Elevated d-dimer, no obvious central pulmonary embolism on chest CTA Essential hypertension Hypothyroidism Lifelong nonsmoker Plan: The patient was seen and evaluated Medication and labs reviewed Improved but not quite back to her baseline Continue the current treatment plan Titrate down the FiO2 as tolerated Increase her activity as tolerated Follow-up chest x-ray in a.m. We will continue to follow I have personally seen and examined the patient, performed the documentation and the assessment and plan as written. Number of minutes spent on the visit: 10.
--- NOTE | 2023-04-07 12:54 | P.PN ---
Subjective Progress Note Date: 04/07/23 patient is 82-year-old lady with past medical history significant for hypertension, hypothyroidism, depression who presented to the ER for evaluation for generalized fatigue. Patient currently a resident of assisted living facility, stated that she has been feeling weak and tired the last few days. Denied any complaint of fevers at the facility. Denied any nausea or vomiting. Denies any chest pain . Patient has been going of shortness of breath on exertion. Denies any palpitations. Denies any orthopnea or PND. Patient recently did visit [place] for family reasons. Patient has been having difficulty ambulating because of weakness. Because of the symptoms, patient brought to the ER. In the ER, patient found to have a fever off 103. Initial lab work done in the ER showed WBC 14.4, hemoglobin 13.4, platelet count 148, d-dimer 1.2,Sodium 132, potassium 3.4 the year 19, creatinine 0.77, lactate 2.5, AST 57, AST 25 UA positive for nitrites, moderate amount of blood. EKG done in the ER showed heart rate of , no ST segment elevation or depression seen, no T-wave inversions seen. Chest x-ray done in the ER showed no evidence of acute pulmonary disease CTA chest done showed no evidence of PE, bilateral lower lobe infiltrates seen, Patient admitted to internal medicine service 04/05. Patient seen and examined. Lab work done this morning showed WBC 9.04, hemoglobin 12.3, sodium 142, potassium 3.5, BUNs 8, creatinine 0.6. Urine Legionella negative. States weakness has improved, patient working with PT and OT today 04/06. Patient seen and examined. Blood work done this morning showed WBC 9.04, hemoglobin is 12.3, sodium 140, potassium 3.5, BUNs is 8, creatinine 0.6, pro-Maxi is 0.51. Denies any shortness of breath at rest. Gets short of breath only on exertion. States weakness is improved. 04/07. Patient seen and examined. States breathing has improved a lot. She states her strength is coming back. Encouraged patient to use of I-S. We'll ween down the oxygen. Vital signs stable REVIEW OF SYSTEMS: CONSTITUTIONAL: No fever, no malaise,. CARDIOVASCULAR: No chest pain, no palpitations, no syncope. PULMONARY: As mentioned above GASTROINTESTINAL: No diarrhea, no nausea, no vomiting, no abdominal pain. NEUROLOGICAL: No headaches, no weakness, PHYSICAL EXAMINATION: GENERAL: The patient is alert and oriented x3, not in any acute distress. Well developed, well nourished. HEENT: Pupils are round and equally reacting to light. EOMI. No scleral icterus. No conjunctival pallor. Normocephalic, atraumatic. No pharyngeal erythema. No thyromegaly. CARDIOVASCULAR: S1 and S2 present. No murmurs, rubs, or gallops. PULMONARY: Chest is clear to auscultation, no wheezing or crackles. ABDOMEN: Soft, nontender, nondistended, normoactive bowel sounds. No palpable organomegaly. MUSCULOSKELETAL: No joint swelling or deformity. EXTREMITIES: No cyanosis, clubbing, or pedal edema. NEUROLOGICAL: Gross neurological examination did not reveal any focal deficits. SKIN: No rashes. Assessment and plan Bacterial pneumonia Sepsis present on admission Acute hypoxemic respiratory failure Hyponatremia Hypokalemia Lactic acidosis Hypothyroidism Hypertension Depression Monitor vital signs Monitor CBC Monitor CMP Continue telemetry monitoring Follow-up on blood cultures Legionella urine antigen was negative Continue breathing treatments Continue IV Rocephin today is day 4, completed 3 days of azithromycin Pulmonology following In regards to hypertension continue Norvasc and metoprolol In regards to hypothyroid continue Synthyroid PT and OT following Labs and medication were reviewed.. Continue same treatment. Continue with symptomatic treatment. Resume home medication. Monitor labs and vitals. DVT and GI prophylaxis. Further recommendations as per clinical course of the patient Dictation was produced using [employer] dictation software. please excuse any grammatical, word or spelling errors. Objective - Vital Signs Vital signs: Vital Signs Temp 98.6 F 04/07/23 07:16 Pulse 80 04/07/23 07:33 Resp 17 04/07/23 07:33 BP 128/72 04/07/23 07:16 Pulse Ox 95 04/07/23 07:16 FiO2 Intake & Output 04/06/23 04/07/23 04/07/23 18:59 06:59 18:59 Output Total 1100 Balance -1100 Output: Urine 1100 Other: Voiding Method External Catheter External Catheter # Voids 3 - Labs CBC & Chem 7: 04/07/23 06:04 04/05/23 05:33 Labs: Microbiology - Last 24 Hours (Table) 04/03/23 15:38 Blood Culture - Preliminary Blood 04/03/23 15:45 Blood Culture - Preliminary Blood
[2023-04-07 13:21] LABS: ALT 77 U/L (8-44); AST 55 U/L (13-35); Albumin 3.1 g/dL (3.8-4.9); Albumin/Globulin Ratio 1.35 Ratio (1.60-3.17); Alkaline Phosphatase 61 U/L (41-126); Blood Urea Nitrogen 7.3 mg/dL (9.0-27.0); Calcium 8.2 mg/dL (8.7-10.3); Carbon Dioxide 25.7 mmol/L (21.6-31.8); Chloride 105 mmol/L (96-109); Globulin 2.3 g/dL (1.6-3.3); Glucose 119 mg/dL (70-110); Potassium 3.3 mmol/L (3.5-5.5); Sodium 141 mmol/L (135-145); Total Bilirubin 0.2 mg/dL (0.3-1.2); Total Protein 5.4 g/dL (6.2-8.2)
[2023-04-07] MEDS: METOPROLOL SUCCINATE (ER) 25 MG TAB.ER.24H PO SCH (21:29)
[2023-04-07] MEDS: SODIUM CHLORIDE 0.9% 1,000 ML IV SCH (21:31)
[2023-04-08] MEDS: amLODIPine 10 MG TAB PO SCH (06:47)
[2023-04-08] MEDS: LEVOTHYROXINE 112 MCG TAB PO SCH (06:47)
[2023-04-08] MEDS: MEMANTINE 5 MG TAB PO SCH (07:54)
--- NOTE | 2023-04-08 08:53 | XR ---
EXAM: XR chest 1V portable CLINICAL INDICATION:Female, 82 years old with history of LLL infiltrate; [facility] COMPARISON: Chest x-ray 04/03/2023 and CTA chest 04/03/2023 TECHNIQUE: Chest single view. FINDINGS: Lines/tubes/devices: None. Cardiomediastinum: Cardiomediastinal silhouette appears stable, heart appears mildly to moderately enlarged. Partially calcified mildly tortuous aorta. Partially calcified tracheobronchial tree. Decreased consp icuity of rounded nodular opacity in the right hilar region, likely vascular shadow. Sue otherwise a ppear stable. Vasculature: No increased pulmonary vasculature. Lungs/pleura: Minimal left basilar strandy opacity with partial obscuration of the costophrenic angle, appears new or increased from previous. Right costophrenic angle is sharp. No visualized pneumothorax. Presumed c hronic interstitial changes bilaterally and mild apical pleural thickening, similar to before. Bones/soft tissues: Bony thorax appears grossly unchanged as seen. Regional soft tissues appear unchanged. Stable mild as ymmetric elevation right hemidiaphragm. IMPRESSION: Slightly increased left basilar opacity, may represent small infiltrate or atelectasis, with or witho ut small pleural effusion.
[2023-04-08] MEDS ORDERED: POTASSIUM CHLORIDE ER 20 MEQ TAB.ER PO STA (11:31)
[2023-04-08 14:50] VITALS: BP 118/61; PULSE 81; RESP 18; TEMP 98.1
--- NOTE | 2023-04-08 14:50 | P.PN ---
Subjective Progress Note Date: 04/08/23 Principal diagnosis: Pneumonia. The patient is seen today 04/05/2023 in follow-up [facility] medical floor. She is awake and alert in no acute distress. She is doing a bit better today compared to yesterday. She is maintaining good O2 saturations in the 90s on 3 L/m per nasal cannula. She is continued on ceftriaxone and azithromycin. Blood cultures reveal no growth. White count 9.0. Hemoglobin 12.3. Platelets 177. Sodium 142. Potassium 4.5. Bicarb 25. BUN 8. Creatinine 0.6. Glucose 129. Pro-calcitonin 0.51. Urine with moderate blood positive nitrates and small leukoesterase. She did have a T-max of 100.9 early this morning. Currently afebrile. Hemodynamically stable. The patient is seen today 04/06/2023 in follow-up on the regular medical floor. She is currently sitting up in bed. Awake and alert in no acute distress. Denies any worsening shortness of breath, cough or congestion. She is maintaining good O2 saturations in the 90s on 2 L/m per nasal cannula. She's been afebrile. Hemodynamically stable. Blood cultures revealed no growth. No new labs today. She is continued on ceftriaxone and azithromycin. The patient is seen today 04/07/2023 in follow-up on the regular medical floor. She is resting quite comfortably in bed. Awake and alert in no acute distress. Less cough and congestion. Maintaining O2 saturations in the 90s on 2 L/m per nasal cannula. She's been afebrile. Hemodynamically stable. Blood cultures reveal no growth. White count 6.2. Hemoglobin 13.5. She is continued on ceftriaxone and completed azithromycin. Progress note dated 04/08/2023. 82-year-old female seen today in room 453. The patient was admitted with a diagnosis of pneumonia, and weakness. Currently, she is on room air. She is receiving saline at 20 mL an hour. Her chest x-ray shows either a left lower lobe infiltrate, or atelectasis. The patient remains on Rocephin. The patient's daughter is in the room, and insist, that the patient's two-week to be discharged home, and would prefer the patient going to rehab. employment agency manager/disc harge medical planner is looking into that. No new labs today. Labs from April 07 are reviewed. Her potassium was low, yesterday. Her pro-calcitonin level from April 05, was 0.51. Chest x-ray from today shows a slightly increased left asymmetric opacity, which may reflect pneumonia, or atelectasis. Objective - Vital Signs Vital signs: Vital Signs Temp 98.1 F 04/08/23 13:26 Pulse 81 04/08/23 13:26 Resp 18 04/08/23 13:26 BP 118/61 04/08/23 13:26 Pulse Ox 91 L 04/08/23 13:26 FiO2 Intake & Output 04/07/23 04/08/23 04/08/23 18:59 06:59 18:59 Output Total 350 Balance -350 Output: Urine 350 Other: Voiding Method External Catheter # Voids 1 # Bowel Movements 2 - Exam No acute distress, oriented 3. Currently on room air. No respiratory distress. HEENT examination is grossly unremarkable. Mucous membranes are moist. No oral lesions. Neck supple. Full range of motion. No adenopathy thyromegaly or neck vein distention. Cardiovascular examination reveals regular rhythm rate. S1-S2 normal. No S3 or S4. No discernible murmur noted. Heart rate is 81 bpm. Lungs reveal mostly clear breath sounds. Scattered rhonchi are noted. No wheezes. No crackles. Breath sounds are equal bilaterally. Room air saturation is 93%. Abdomen soft bowel sounds are heard. No masses or tenderness. Extremities are intact. No cyanosis clubbing or edema. Skin is without rash or lesion. Neurologic examination is brief but nonfocal. - Labs CBC & Chem 7: 04/07/23 06:04 04/07/23 06:04 Assessment and Plan Assessment: Suspected bilateral community-acquired pneumonia. Chest CTA demonstrates bilateral lower lobe infiltrates, greater on the left, concerning for pneumonia. There are pathological hilar and mediastinal lymphadenopathy, underlying neoplastic process is not entirely excluded. Acute hypoxemic respiratory failure, secondary to above. Leukocytosis, secondary to above, recovered. Acute febrile illness, recovered. Urinary tract infection suspected. Elevated d-dimer, no obvious central pulmonary embolism on chest CTA. Essential hypertension. Hypothyroidism. Lifelong nonsmoker. Plan: Plan dated 04/08/2023. The patient was seen and evaluated. The daughter insists that the patient probably should go to rehab, for additional strengthening, as, she's been limited in the room. Currently, she continues on Rocephin. She's not requiring any supplemental oxygen. She is receiving saline at 20 mL an hour. The most recent chest x-ray reveals either an infiltrate, or atelectasis, at the left lung base. Labs, x-rays, and medications are reviewed. The patient's overall prognosis remains guarded. Time with Patient: Less than 30
== END 2023-04-08 14:57 | disposition home or self-care (01) | DRG 871 ==
LOC: EC 12:17 → 4SSUR 15:02
PROVIDERS: ADMIT Hospitalist; ATTEND Hospitalist
DX: A41.9 Sepsis, unspecified organism (principal); J15.9 Unspecified bacterial pneumonia; J96.01 Acute respiratory failure with hypoxia; E87.1 Hypo-osmolality and hyponatremia; F03.93 Unspecified dementia, unspecified severity, with mood disturbance; N39.0 Urinary tract infection, site not specified; E03.9 Hypothyroidism, unspecified; E87.6 Hypokalemia; F32.A Depression, unspecified; I25.10 Atherosclerotic heart disease of native coronary artery without angina pectoris; R91.8 Other nonspecific abnormal finding of lung field; I10 Essential (primary) hypertension; I50.9 Heart failure, unspecified; I11.0 Hypertensive heart disease with heart failure; R79.1 Abnormal coagulation profile; R32 Unspecified urinary incontinence; Z79.83 Long term (current) use of bisphosphonates; Z79.890 Hormone replacement therapy; Z79.899 Other long term (current) drug therapy; Z82.49 Family history of ischemic heart disease and other diseases of the circulatory system; Z85.3 Personal history of malignant neoplasm of breast; Z87.440 Personal history of urinary (tract) infections; Z92.3 Personal history of irradiation; Z11.52 Encounter for screening for COVID-19
CPT/HCPCS: 36415; 70450; 71045; 71046; 71275; 80053; 81001; 83605; 83735; 84145; 85025; 85027; 85379; 85610; 85730; 87040; 87449; 87636; 93005; 94760; 96365; 96366; 96367; 96368; 99285

== ENCOUNTER → 2023-07-01 | Outpatient (CLI) | payer MEDICARE, BC ==
--- NOTE | 2023-07-02 14:42 | MM ---
Reason for Exam: Screening (asymptomatic). Last screening mammogram was performed 12 month(s) ago. Patient History: Menarche at age 11. First Full-Term at age 16. Postmenopausal. Breast cancer, age 75. Previous chest radiation therapy at age 75. Lumpectomy on the Right side. Prior Study Comparison: 04/06/2020 Bilateral Diagnostic Mammogram, [facility]. 05/03/2021 Bilateral Screening Mammogram, [facility]. 06/20/2022 Bilateral MG 3D screening mammo w/cad, [facility]. Tissue Density: The breasts are heterogeneously dense, which may obscure small masses. Findings: Analyzed By CAD. There is no suspicious group of microcalcifications or new suspicious mass. Benign-appearing calcifications bilaterally. Overall Assessment: Negative, BI-RAD 1 Management: Screening Mammogram of both breasts in [address] [facility] will attempt to contact patient to return for supplemental views and ultrasound if indicated. Patient should continue monthly self-breast exams. A clinical breast exam by your physician is recommended on an annual basis. This exam should not preclude additional follow-up of suspicious palpable abnormalities. Note on Sharon scores and lifetime risk: 1. A Sharon score greater than 3% is considered moderate risk. If this is the case, consider specialist referral to assess eligibility for a risk reducing agent. 2. If overall lifetime risk for the development of breast cancer is 20% or higher, the patient may qualify for future screening with alternating mammogram and breast MRI. Electronically signed and approved by: Lawrence Vitale DO
== END | disposition home or self-care (01) ==
LOC: RADMAMWWP 13:53
PROVIDERS: ATTEND Family Medicine
DX: Z12.31 Encounter for screening mammogram for malignant neoplasm of breast (principal); Z80.3 Family history of malignant neoplasm of breast; Z78.0 Asymptomatic menopausal state
CPT/HCPCS: 77063; 77067

== ENCOUNTER → 2024-07-28 | Outpatient (CLI) | payer MEDICARE, BC ==
--- NOTE | 2024-07-28 15:38 | MM ---
Reason for Exam: Hx of breast cancer, conservation therapy. Last mammogram was performed 1 year(s) and 1 month(s) ago. Patient History: Menarche at age 11. First Full-Term at age 16. Postmenopausal. 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 Previous chest radiation therapy at age 75. Lumpectomy on the Right side. Prior Study Comparison: 05/07/2019 Screening Mammogram, [place]. 04/06/2020 Bilateral Diagnostic Mammogram, [facility]. 05/03/2021 Bilateral Screening Mammogram, [facility]. 06/20/2022 Bilateral MG 3D screening mammo w/cad, [facility]. 07/01/2023 Bilateral MG 3D screening mammo w/cad, [facility]. Tissue Density: There are scattered areas of fibroglandular density. Findings: Analyzed By CAD. Scattered benign oil cyst and vascular calcifications. A couple microclips in the right breast from prior biopsies. There is no suspicious group of microcalcifications or new suspicious mass in either breast. Overall Assessment: Benign, BI-RAD 2 Management: Screening Mammogram of both breasts in 1 year. Patient should continue monthly self-breast exams. A clinical breast exam by your physician is recommended on an annual basis. This exam should not preclude additional follow-up of suspicious palpable abnormalities. Note on Sharon scores and lifetime risk: 1. A Sharon score greater than 3% is considered moderate risk. If this is the case, consider specialist referral to assess eligibility for a risk reducing agent. 2. If overall lifetime risk for the development of breast cancer is 20% or higher, the patient may qualify for future screening with alternating mammogram and breast MRI. [facility], , 07/28/2024 3:35 PM. Electronically signed and approved by: Sayra Ryan M.D. Radiologist
== END | disposition home or self-care (01) ==
LOC: RADMAMWWP 12:00
PROVIDERS: ATTEND Family Medicine
DX: Z12.31 Encounter for screening mammogram for malignant neoplasm of breast (principal); R92.323 Mammographic fibroglandular density, bilateral breasts; Z78.0 Asymptomatic menopausal state; Z85.3 Personal history of malignant neoplasm of breast
CPT/HCPCS: 77063; 77067

== ENCOUNTER 2024-09-03 09:18 | Emergency (ER) | payer MEDICARE, BC ==
[2024-09-03 09:25] VITALS: PULSE 92; RESP 20; TEMP 99
[2024-09-03] MEDS: KETOROLAC 15 MG/ML 1 ML VIAL IVP STA (10:19)
[2024-09-03 10:29] LABS: Basophils # (A) 0.07 10*3/uL (0.00-0.10); Basophils % (A) 1.4 %; Eosinophils # (A) 0.03 10*3/uL (0.04-0.35); Eosinophils % (A) 0.6 %; HGB 14.7 g/dL (12.0-15.0); Lymphocytes # (A) 1.23 10*3/uL (0.90-5.00); MCH 33.1 pg (27.0-32.0); MCHC 34.2 g/dL (32.0-37.0); MCV 96.8 fL (80.0-97.0); Mean Platelet Volume 9.2 fL (9.5-12.2); Monocytes # (A) 0.65 10*3/uL (0.20-1.00); Monocytes % (A) 13.2 %; Neutrophils # (A) 2.93 10*3/uL (1.80-7.70); Neutrophils % (A) 59.6 %; Platelet Count 211 10*3/uL (140-440); RBC 4.44 10*6/uL (4.10-5.20); WBC 4.92 10*3/uL (4.50-10.00)
[2024-09-03 10:48] LABS: ALT 12 U/L (4-34); AST 21 U/L (14-36); African American GFR (CKD) >90 (>60 ml/min/1.73 sqM); Albumin 4.1 g/dL (3.5-5.0); Alkaline Phosphatase 38 U/L (38-126); Anion Gap 8 mmol/L; Blood Urea Nitrogen 22 mg/dL (7-17); Calcium 9.5 mg/dL (8.4-10.2); Carbon Dioxide 28 mmol/L (22-30); Chloride 105 mmol/L (98-107); Glucose 112 mg/dL (74-99); Lipase 67 U/L (23-300); Non-African American GFR(CKD) 79 (>60 ml/min/1.73 sqM); Potassium 3.8 mmol/L (3.5-5.1); Sodium 141 mmol/L (137-145); Total Bilirubin 0.7 mg/dL (0.2-1.3); Total Protein 6.5 g/dL (6.3-8.2)
[2024-09-03 11:07] LABS: Appearance,Urine Clear (Clear); Bilirubin,Urine Negative (Negative); Blood,Urine Negative (Negative); Color,Urine Yellow; Glucose,Urine (UA) Negative (Negative); Ketones,Urine Negative (Negative); Leukocyte Esterase,Urine Negative (Negative); Nitrite,Urine Negative (Negative); PH, Urine 6.5 (5.0-8.0); Protein,Urine Negative (Negative); Specific Gravity,Urine 1.022 (1.001-1.035); Urobilinogen,Urine <2.0 mg/dL (<2.0)
[2024-09-03 11:54] VITALS: BP 131/80
--- NOTE | 2024-09-03 12:04 | CT ---
EXAMINATION TYPE: CT abdomen pelvis wo con DATE OF EXAM: 09/03/2024 11:46 AM COMPARISON: 02/14/2021 CLINICAL INDICATION: Female, 83 years old with history of left flank pain with urinary symptoms; Left flank pain with urinary symptoms TECHNIQUE: CT of the abdomen and pelvis without IV contrast. Sagittal and coronal reformats were crea charisse on a separate workstation. CT DLP: 403.8 mGycm, Automated exposure control for dose reduction was used. FINDINGS: LOWER CHEST: Heart borderline enlarged. Strandy dependent atelectasis. No pleural effusion. ABDOMEN LIVER: Unremarkable GALLBLADDER AND BILE DUCTS: Unremarkable. PANCREAS: Unremarkable. SPLEEN: Unremarkable. ADRENAL GLANDS: Unremarkable. KIDNEYS AND URETERS: No nephrolithiasis or hydronephrosis is seen. Extrarenal pelvis on the right rem ains unchanged. PELVIS BLADDER: No evidence for wall thickening or mass given limitations of exam. REPRODUCTIVE: Right adnexal cyst measuring 7.8 x 4.1 cm versus 6.4 x 3.7 cm back in 2020. Numerous pe lvic phleboliths. Unremarkable appearing left ovary. Uterus anteverted. ABDOMEN & PELVIS STOMACH AND BOWEL: Small to moderate size hiatal hernia. Scattered [id number] stool. Left-sided colonic diverticulosis, greatest in the mid to distal sigmoid colon. Mild circumferential wall thick ening mid to distal sigmoid colon but without any surrounding inflammation, probably due to nondisten tion. No evidence of bowel obstruction. PERITONEUM/RETROPERITONEUM: No evidence of pneumoperitoneum or free fluid. VASCULATURE: No evidence of aortic aneurysm. MUSCULOSKELETAL: Chronic T11 vertebral compression collapsed with retropulsion into the spinal canal possibly causing moderate to severe focal spinal canal stenosis. Advanced spondylotic change througho ut the visualized spine. LYMPH NODES: No gross evidence for lymphadenopathy. SOFT TISSUE/ABDOMINAL WALL: Unremarkable IMPRESSION: 1. No nephrolithiasis or hydronephrosis seen. 2. Ahnzz-pa-epfioniy sized hiatal hernia. 3. Right adnexal cyst redemonstrated. Slightly larger from 2020 currently 7.8 cm versus 6.4 cm, previ ously. Cystic epithelial ovarian neoplasm (though probably benign) is in the differential. Recommend RESEARCH GROUP DIRECTOR referral for any subsequent management/surveillance. 4. Left-sided colonic diverticulosis. Mild wall thickening of the mid to distal sigmoid colon probabl y due to nondistention. No findings of acute diverticulitis. 5. Chronic T11 vertebral compression collapse and retropulsion causing moderate to severe focal spina l canal stenosis. Unchanged from 2020. [facility], , 09/03/2024 12:02 PM
--- NOTE | 2024-09-03 12:45 | ED ---
General Adult HPI - General Chief complaint: Abdominal Pain Stated complaint: back pain, urogenital Time Seen by Provider: 09/03/24 09:37 Source: patient, RN notes reviewed, old records reviewed Mode of arrival: ambulatory Limitations: no limitations - History of Present Illness Initial comments: Patient is an 83-year-old female presents emergency department complaining of left-sided back and flank pain. Also is complaining of polyuria. Has been goi ng on for a few days. Denies any dysuria or hematuria. Denies any constipation or diarrhea. Denies any abdominal surgeries. Denies any nausea or vomiting or diarrhea. Denies any constipation. Denies any fevers or chills. No history of kidney stones. He is not certain what is causing the pain as it was sudden onset with concern for possible something urinary in nature. No history of kidney stones. States the pain is manageable and does not require any analgesic medications at this time. Primary concern is possible UTI as the polyuria has continued. States is normal color urine. No change in urination otherwise. Presents for further evaluation. Denies any falls. Denies any middle back pain. Denies any saddle paresthesias. Denies any lower extremity paralysis. Denies any urinary or bowel incontinence or retention. - Related Data Home Medications Medication Instructions Recorded Confirmed Levothyroxine Sodium [Euthyrox] 112 mcg PO DAILY@0730 10/17/21 04/03/23 amLODIPine [Norvasc] 10 mg PO DAILY@0730 10/17/21 04/03/23 ALPRAZolam [Xanax] 0.25 mg PO BID PRN 04/03/23 04/03/23 Alendronate Sodium [Fosamax] 35 mg PO MO 04/03/23 04/03/23 Famotidine 40 mg PO HS PRN 04/03/23 04/03/23 Memantine HCl [Namenda] 5 - 10 mg PO DIRECTED 04/03/23 04/03/23 Metoprolol Succinate (ER) [Toprol 12.5 mg PO HS@2200 04/03/23 04/03/23 XL] Sertraline [Zoloft] 25 mg PO DAILY PRN 04/03/23 04/03/23 Previous Rx's Medication Instructions Recorded cefuroxime axetiL [Ceftin] 500 mg PO BID 3 Days #6 tab 04/08/23 Allergies Allergy/AdvReac Type Severity Reaction Status Date / Time No Known Allergies Allergy Verified 04/03/23 15:21 Review of Systems ROS Statement: Those systems with pertinent positive or pertinent negative responses have been documented in the HPI. Review of Systems: CONST: Denies fever EYES: Denies blurry vision ENT: Denies nasal congestion C/V: Denies Chest pain RESP: Denies shortness of breath GI: Endorses mild left flank pain : Endorses polyuria SKIN: Denies rash. MSK: Denies joint pain. NEURO: Denies headache ROS Other: All systems not noted in ROS Statement are negative. Past Medical History Past Medical History: Cancer, Chest Pain / Angina, Heart Failure, Hypertension, Thyroid Disorder Additional Past Medical History / Comment(s): right breast Cancer 04/2013 with lumpectomy and radiation tx 17 days. bilateral eye cataracts removed with lens implants History of Any Multi-Drug Resistant Organisms: None Reported Past Surgical History: Breast Surgery Additional Past Surgical History / Comment(s): left thumb trigger finger surgery, ganglion cyst x2 left wrist. bilateral toe bunionectomy. Past Anesthesia/Blood Transfusion Reactions: No Reported Reaction Past Psychological History: No Psychological Hx Reported Smoking Status: Never smoker - Past Family History Father Additional Family Medical History / Comment(s): of CHF at age 90 Mother Additional Family Medical History / Comment(s): of chf at age 92 General Exam - General Exam Comments Initial Comments: General: Appears in no acute distress. HEAD: Normal with no signs of head trauma. EYES: EOMI ENT: Hearing grossly intact RESPIRATORY: Clear breath sounds bilaterally. No wheezes, rales, or rhonchi. C/V: Regular rate and rhythm. S1 and S2 auscultated. Chronic lower extremity pitting edema at baseline for the patient. Peripheral pulses 2+ intact throughout. ABD: Abdomen is soft, nontender, nondistended. No guarding or rebound tenderness. No peritoneal signs. Very mild left flank tenderness to palpation. EXT: Normal range of motion. No obvious deformity. No significant midline tenderness of the cervical, thoracic, lumbar spines. No step-off or deformity of the spine. SKIN: No rashes or lesions observed on exposed skin. NEURO: Alert and oriented x 4. Ambulates with a cane at baseline Limitations: no limitations Course Vital Signs 09/03/24 09/03/24 09:20 11:53 Temperature 99 F Pulse Rate 92 Respiratory 20 Rate Blood Pressure 157/95 131/80 O2 Sat by Pulse 98 97 Oximetry Medical Decision Making - Medical Decision Making Was pt. sent in by a medical professional or institution ([facility] Du, HOP TRAINER, urgent care, hospital, or [facility]...) When possible be specific @ -No Did you speak to anyone other than the patient for history (EMS, parent, family, police, friend...)? What history was obtained from this source @ -Patient's daughter presents with the patient and assist with past medical history. Did you review nursing and triage notes (agree or disagree)? Why? @ -I reviewed and agree with nursing and triage notes Were old charts reviewed (outside hosp., previous admission, EMS record, old EKG, old radiological studies, urgent care reports/EKG's, [facility] records)? Report findings @ -No old charts were reviewed Differential Diagnosis (chest pain, altered mental status, abdominal pain women, abdominal pain men, vaginal bleeding, weakness, fever, dyspnea, syncope, headache, dizziness, GI bleed, back pain, seizure, CVA, palpatations, mental health, musculoskeletal)? @ -UTI, pyelonephritis, nephrolithiasis. This list is not all inclusive. EKG interpreted by me (3pts min.). @ -As above X-rays interpreted by me (1pt min.). @ -None done CT interpreted by me (1pt min.). @ -CT abdomen pelvis reveals no obvious intra-abdominal process to explain the patient's left flank pain. Patient does have a hiatal hernia that is small. Patient has diverticulosis without diverticulitis. Patient has chronic T11 compression fracture causing some spinal canal stenosis which is chronic and unchanged from 2020. Patient does have a right adnexal cyst that is chronic and slightly enlarged versus 202. U/S interpreted by me (1pt. min.). @ -None done What testing was considered but not performed or refused? (CT, X-rays, U/S, labs)? Why? @ -None What meds were considered but not given or refused? Why? @ -None Did you discuss the management of the patient with other professionals (pro fessionals i.e. , SID, HOP TRAINER, lab, RT, psych nurse, rn social services, data compiler, teacher, fire control officer, bilingual case manager)? Give summary @ -No Was smoking cessation discussed for >3mins.? @ -No Was critical care preformed (if so, how long)? @ -No Were there social determinants of health that impacted care today? How? (Homelessness, low income, unemployed, alcoholism, drug addiction, transportation, low edu. Level, literacy, decrease access to med. care, care home, rehab)? @ -No Was there de-escalation of care discussed even if they declined (Discuss DNR or withdrawal of care, Hospice)? DNR status @ -No What co-morbidities impacted this encounter? (DM, HTN, Smoking, COPD, CAD, Cancer, CVA, ARF, Chemo, Hep., AIDS, mental health diagnosis, sleep apnea, morbid obesity)? @ -None Was patient admitted / discharged? Hospital course, mention meds given and route, prescriptions, significant lab abnormalities, going to OR and other pertinent info. @ -Patient presents for left flank pain. Also polyuria. Concern for possible urinary tract infection versus pyelonephritis versus kidney stone. We will ob tain abdominal laboratory studies as well as CT abdomen pelvis without contrast. Patient initially declines analgesia medications but does accept Toradol. He has no other acute complaints at this time. Vitals are within acceptable limits. Laboratory studies are all within acceptable limits. No evidence of UTI. No evidence of any acute kidney injury. Patient's CT does not show any obvious ur inary findings. She does have a chronic right sided adnexal cyst as well as some nonspecific findings that are old, such as diverticulosis without diverticulitis as well as the T11 vertebral compression fracture which is old. No other obvious acute process. I discussed results with the patient including the Adnexal cyst which she is aware of and is frequently seeing [employer] WORK[employer] and having monitoring of. She is feeling improved at this time. I recommended close follow-up with her [employer] VAULT WORKER as well as PCP. She was in agreement this plan. Strict return precautions discussed. I instructed the patient to follow up with their PCP in the next 1-3 days. I explained that the patient should return to the emergency department if they experience any worsening symptoms. Strict return precautions were discussed with the patient. The patient expressed understanding of these instructions. I answered all questions that the patient had. The patient was discharged home in good condition with their prescriptions and follow up information. Undiagnosed new problem with uncertain prognosis? @ -No Drug Therapy requiring intensive monitoring for toxicity (Heparin, Nitro, Insulin, Cardizem)? @ -No Were any procedures done? @ -No Diagnosis/symptom? @ -Abdominal pain of unknown etiology, adnexal cyst Acute, or Chronic, or Acute on Chronic? @ -Acute, chronic Uncomplicated (without systemic symptoms) or Complicated (systemic symptoms)? @ -Uncomplicated Side effects of treatment? @ -No Exacerbation, Progression, or Severe Exacerbation? @ -No Poses a threat to life or bodily function? How? (Chest pain, [place], CA, pneumonia, PE, COPD, DKA, ARF, appy, cholecystitis, CVA, Diverticulitis, Homicidal, S uicidal, threat to staff... and all critical care pts) @ -Unlikely at this time - Lab Data Result diagrams: 09/03/24 09:47 09/03/24 09:47 Lab Results 09/03/24 09/03/24 09/03/24 Range/Units 09:47 09:47 09:47 WBC 4.92 (4.50-10.00) 10*3/uL RBC 4.44 (4.10-5.20) 10*6/uL Hgb 14.7 (12.0-15.0) g/dL Hct 43.0 (37.2-46.3) % MCV 96.8 (80.0-97.0) fL MCH 33.1 H (27.0-32.0) pg MCHC 34.2 (32.0-37.0) g/dL Plt Count 211 (140-440) 10*3/uL MPV 9.2 L (9.5-12.2) fL Immature Gran % (Auto) 0.2 % Neutrophils % 59.6 % Lymphocytes % 25.0 % Monocytes % 13.2 % Eosinophils % 0.6 % Basophils % 1.4 % Immature Gran # 0.01 (0.00-0.04) 10*3/uL Neutrophils # 2.93 (1.80-7.70) 10*3/uL Lymphocytes # 1.23 (0.90-5.00) 10*3/uL Monocytes # 0.65 (0.20-1.00) 10*3/uL Eosinophils # 0.03 L (0.04-0.35) 10*3/uL Basophils # 0.07 (0.00-0.10) 10*3/uL Sodium 141 (137-145) mmol/L Potassium 3.8 (3.5-5.1) mmol/L Chloride 105 (98-107) mmol/L Carbon Dioxide 28 (22-30) mmol/L Anion Gap 8 mmol/L BUN 22 H (7-17) mg/dL Creatinine 0.70 (0.52-1.04) mg/dL Est GFR (CKD-EPI)AfAm >90 (>60 ml/min/1.73 sqM) Est GFR (CKD-EPI)NonAf 79 (>60 ml/min/1.73 sqM) Glucose 112 H (74-99) mg/dL Plasma Lactic Acid Ernie (0.7-2.0) mmol/L Calcium 9.5 (8.4-10.2) mg/dL Total Bilirubin 0.7 (0.2-1.3) mg/dL AST 21 (14-36) U/L ALT 12 (4-34) U/L Alkaline Phosphatase 38 (38-126) U/L Total Protein 6.5 (6.3-8.2) g/dL Albumin 4.1 (3.5-5.0) g/dL Lipase 67 (23-300) U/L Urine Color Yellow Urine Appearance Clear (Clear) Urine pH 6.5 (5.0-8.0) Ur Specific [place] 1.022 (1.001-1.035) Urine Protein Negative (Negative) Urine Glucose (UA) Negative (Negative) Urine Ketones Negative (Negative) Urine Blood Negative (Negative) Urine Nitrite Negative (Negative) Urine Bilirubin Negative (Negative) Urine Urobilinogen <2.0 (<2.0) mg/dL Ur Leukocyte Esterase Negative (Negative) 09/03/24 Range/Units 09:47 WBC (4.50-10.00) 10*3/uL RBC (4.10-5.20) 10*6/uL Hgb (12.0-15.0) g/dL Hct (37.2-46.3) % MCV (80.0-97.0) fL MCH (27.0-32.0) pg MCHC (32.0-37.0) g/dL Plt Count (140-440) 10*3/uL MPV (9.5-12.2) fL Immature Gran % (Auto) % Neutrophils % % Lymphocytes % % Monocytes % % Eosinophils % % Basophils % % Immature Gran # (0.00-0.04) 10*3/uL Neutrophils # (1.80-7.70) 10*3/uL Lymphocytes # (0.90-5.00) 10*3/uL Monocytes # (0.20-1.00) 10*3/uL Eosinophils # (0.04-0.35) 10*3/uL Basophils # (0.00-0.10) 10*3/uL Sodium (137-145) mmol/L Potassium (3.5-5.1) mmol/L Chloride (98-107) mmol/L Carbon Dioxide (22-30) mmol/L Anion Gap mmol/L BUN (7-17) mg/dL Creatinine (0.52-1.04) mg/dL Est GFR (CKD-EPI)AfAm (>60 ml/min/1.73 sqM) Est GFR (CKD-EPI)NonAf (>60 ml/min/1.73 sqM) Glucose (74-99) mg/dL Plasma Lactic Acid Ernie 1.5 (0.7-2.0) mmol/L Calcium (8.4-10.2) mg/dL Total Bilirubin (0.2-1.3) mg/dL AST (14-36) U/L ALT (4-34) U/L Alkaline Phosphatase (38-126) U/L Total Protein (6.3-8.2) g/dL Albumin (3.5-5.0) g/dL Lipase (23-300) U/L Urine Color Urine Appearance (Clear) Urine pH (5.0-8.0) Ur Specific [place] (1.001-1.035) Urine Protein (Negative) Urine Glucose (UA) (Negative) Urine Ketones (Negative) Urine Blood (Negative) Urine Nitrite (Negative) Urine Bilirubin (Negative) Urine Urobilinogen (<2.0) mg/dL Ur Leukocyte Esterase (Negative) Disposition Clinical Impression: Abdominal pain of unknown etiology, Adnexal cyst Disposition: HOME SELF-CARE Condition: Good Instructions (If sedation given, give patient instructions): Abdominal Pain (ED) Additional Instructions: Follow-up with your PCP and oncologist regarding the adnexal cyst. Continue monitoring it. Return to the ER for any worsening symptoms. Follow-up with your PCP in the next 1 to 3 days. Is patient prescribed a controlled substance at d/c from ED?: No Referrals: Melina James MD [Primary Care Provider] - 1-2 days Time of Disposition: 12:40
== END 2024-09-03 13:34 | disposition home or self-care (01) ==
LOC: EC 09:18
DX: N83.201 Unspecified ovarian cyst, right side (principal); K57.30 Diverticulosis of large intestine without perforation or abscess without bleeding
CPT/HCPCS: 36415; 80053; 83605; 83690; 85025; 81003; 74176; 99284; 96374; J1885